=== PATIENT | male | born 1935 | race Caucasian/White ===

== ENCOUNTER → 2016-12-08 | Outpatient (CLI) | payer BC ==
[~2016-12-08] MED LIST: CHOL1TAB42 PO; EPIN1INJ33 IM; LOSA1TAB PO; METO50TA7 PO; MULT-506 PO; SIMV20TA2 PO
[2016-12-08 13:10] LABS: CHOLESTEROL/HDL RATIO 4.8; URIC ACID 7.7 mg/dl (2.6-7.2)
== END | disposition home or self-care (01) ==
LOC: C.LAB1850 10:27
PROVIDERS: ATTEND Internal Medicine Cardiovascular Disease
DX: E78.5 Hyperlipidemia, unspecified (principal); M10.9 Gout, unspecified

== ENCOUNTER → 2017-06-07 | Outpatient (CLI) | payer BC ==
[2017-06-07 10:33] LABS: ALT/SGPT 32 U/L (12-78); AST/SGOT 29 U/L (15-37); BLOOD UREA NITROGEN 24 mg/dl (7-18); BUN/CREATININE RATIO 17.9 (10-20); CALCIUM 9.4 mg/dl (8.5-10.1); CARBON DIOXIDE 27 mmol/L (21-32); CHLORIDE 105 mmol/L (98-107); CHOLESTEROL 153 mg/dl (0-200); CREATININE 1.34 mg/dl (0.60-1.40); GLUCOSE 100 mg/dl (70-99); POTASSIUM 4.4 mmol/L (3.5-5.1); SODIUM 139 mmol/L (136-145)
[2017-06-07 10:35] LABS: CHOLESTEROL/HDL RATIO 4.1; HDL CHOLESTEROL 37 mg/dl; LDL CHOLESTEROL CALCULATED 71 mg/dl; TRIGLYCERIDES 227 mg/dl (0-150); VERY LOW DENSITY LIPOPROT CALC 45 mg/dl
== END | disposition home or self-care (01) ==
LOC: C.LAB1850 09:31
PROVIDERS: ATTEND Internal Medicine Cardiovascular Disease
DX: I10 Essential (primary) hypertension (principal)

== ENCOUNTER 2017-11-22 13:16 | Emergency (ER) | payer BC ==
[~2017-11-22] VITALS: Ht 175.3 cm; Wt 93.9 kg
[~2017-11-22 13:16] MED LIST changes: -METO50TA7 PO; +METO50TA8 PO
[2017-11-22 13:35] VITALS: BP 206/108; PULSE 65; TEMP 36.5; O2SAT 98; Ht 175.3 cm; Wt 93.9 kg
== END 2017-11-22 16:27 | disposition left against medical advice (07) ==
LOC: C.EDB 13:19
DX: M25.512 Pain in left shoulder (principal); M79.602 Pain in left arm; Z53.21 Procedure and treatment not carried out due to patient leaving prior to being seen by health care provider

== ENCOUNTER → 2017-12-15 | Outpatient (CLI) | payer BC | END | disposition home or self-care (01) | LOC: C.LAB1850 09:26 | PROVIDERS: ATTEND Internal Medicine Cardiovascular Disease | DX: E78.5 Hyperlipidemia, unspecified (principal) ==

== ENCOUNTER 2020-04-16 22:34 | Inpatient (IN) ==
[2020-04-16] MEDS ORDERED: RAPID SEQUENCE INDUCTION BAG ONE (22:44)
[2020-04-16] MEDS ORDERED: fentaNYL citrate 100 MCG/2 ML VIAL IV STA (22:49)
--- NOTE | 2020-04-16 22:51 | Emergency Department Note ---
Impression & Plan Complete heart block, Acute respiratory failure ED Provider Note Name: JERI ANSARI Age: 85 Sex: M Arrives Via: Ambulance Informant: , EMS. Patient unresponsive ED Provider: Seamus Lazar MD Chief Complaint: Shortness of breath Impression: Complete Heart Block Acute Respiratory Failure Medical Decision Makin yr old male with PMH HTN, dyslipidemia and previous hyperglycemia arrives following 3 days generalized weakness and then this evening acute confusion and shortness of breath. Found to be complete heart block by EMS and en route r equired pacing and given IV versed. Patient unresponsive on arrival moving/moaning to painful stimuli. Complete heart block with poor pulse thus switched to pads here and paced at 70bpm with 120 amps and good capture. Intubated shortly after arrival as poor respiratory drive. While unable to get good BP while here, he does have strong pulses bilateral groin and wrists thus no EPI/pressor started. Afebrile and CXR with congestion though no overt infiltrate. No clear evidence of infection and denies anything other than he has been tired the last three days. I will note he is was hypoxic on arrival but after starting NRB then intubating patient without any hypoxia in ED, and despite inability to get actual BP he does have excellent pulses. EMS already tried several rounds Atropine thus no further cardiac meds given. I opted to give some fluids for support, and sedatives/RSI meds. He has initial istat with mild Hyperglycemia, mild renal insufficiency from baseline, and otherwise unremarkable. CXR with some developing congestive failure though tube is appropriate and no pneumo. I suspect respiratory failure on arrival combination obtundation and developing heart failure. Furthermore mental status issues likely secondary to Versed along with everything else going on. Initial EKG (this was EMS EKG at bedside on arrival) with no clear stemi morphology though is ventricular escape rhythm. Did not get EKG in ED as did not want to stop pacing patient. Prior Medical Record and Triage/Nursing Notes reviewed by Me Additional history obtained from Differentials:ACS, Arrhythmia, Pneumonia, COVID, CHF, pneumonia, pneumothorax, infections, pulmonary embolism, musculoskeletal, gastrointestinal, as well as other pathologies. Vital Signs: reviewed and remarkable for hypoxia, bradycardia Interventions: saline lock, intubation meds, versed iv, fentanyl iv, nss bolus Labs:Reviewed and remarkable for mild Cr elevation Imaging:X ray results are stated below per my interpretation: Chest: 1 view: ET Tube proper position, bilateral developing congestive failure EKG:Per My Interpretation: Indication bradycardia: Complete heart block 32 bpm. Ventricular escape without STEMI morphology. Compared to EKG 11/22/17 heart block is new. Cardiac/Tele Monitoring: Cardiac Monitoring: An Order was placed for continuous cardiac monitoring. The monitor shows a rate of 70 with a paced rhythm. Consults:Dr Villegas Cardiology who took patient to [employer] to place temporary pacer Plan: Disposition:Hospitalization. Condition: Critical Blood pressure:N/a Prescriptions:n/a PDMP: n/a History of Present Illness:85 male arrives for evaluation of respiratory difficulty. Patient with history dyslipidemia and HTN who arrives after feeling acutely short of breath at home. Not feeling well for the past 3 days with increased exhaustion and taking more naps. This evening while eating dinner became very tired, short of breath and feeling cold. He was unable to take a deep breath. Became confused and called 911. EMS arrived to find patient very tired but answering questions. Pt in complete heart block and given Atropine IV. En route increasing confusion and EMS reports having lost a pulse so patient was paced and given versed 5mg IV en route. Per no history of ACS, PE, dissection. No further information available. ROS: Unable to obtain secondary to ams Past Medical History:HTN, Dylipidemia, Elevated BSG Past Surgical History:Appendectomy, T&A removal, Hernia repair Family History:Father with CAD? Social History:Lives with , retired, previous smoker Home Medications:See Below Allergies:PNC, diltiazem, oxycodone Vitals:Blood Pressure: Palpable, Pulse 39, RR 18, T 36.9C, O2 85% on RA Physical Exam: GENERAL: Patient is unwell appearing and in obtunded EYES: No scleral icterus, unremarkable pupils. ENT: Mucous membranes moist, no nasal congestion. NECK: No masses appreciated, nomeningismus, trachea is midline. RESPIRATORY: Shallow breaths with poor respiratory drive and diffuse crackles CARDIOVASCULAR: Bradycardic.No murmurs, rubs, gallops appreciated. GASTROINTESTINAL: Abdomen soft, non-tender, no peritonitis.Bowel sounds positive.No masses appreciated. BACK: No step offs nor midline TTP, no apparent CVA TTP EXTREMITIES: Weakly moves extremities to painful stimuli NEUROLOGIC: Obtunded, unresponsive except weakly moves to painful stimuli, unable to eval CN and neuro exam SKIN: No rash, no jaundice, no diaphoresis. GCS: 6 ED Course: Times/Reassessments: Extensive bedside management until patient went to [employer] Procedures: Endotracheal Intubation Indication: Respiratory failure, obtunded The patient was being bagged by respiratory with BVM. Suction, airway equipment, RSI drugs, respiratory equipment, and appropriate personnel were prepared prior to the initiation of the procedure. A time out was taken. Induction was performed with Etomidate 20mg IV and Succynicholine 150mg IV. After observing the clinical benefit of the medications, the airway was easily visualized utilizing a #4 Glidescope. A 7.5 size ETT tube was placed atraumatically to 23 cm using standard technique. The cuff inflated without signs of malfunction. There were bilateral breath sounds, positive colormetric change, no gastric sounds, a good capnography waveform, and post procedure pulse oximetry was 98%. Post intubation sedation and paralysis was administered using Versed and Fentanyl IV. There were no complications. Cardiac Pacing: Indication: Complete Heart Block Patient with pads placed right anterior chest and left mid axillary line. Patient paced at 70 bpm with capture of rhythm at 120 amps current. Patient with good pulses after this and was sedated/intubated for management throughout. This was done by me. Critical Care: I have personally spent 60 minutes of critical care time in the direct management of this patient. Acute heart block with respiratory failure requiring bedside external pacing, intubation and transfer to [employer] for temporary pa cer. This was a life/limb threatening event. This 60 minutes is in excess of all separately billable procedures. Seamus Lazar MD Past Med/Surg History Medical History (Updated 04/17/20 @ 01:46 by RADHA Quintanilla) Dyslipidemia Gout Helicobacter positive gastritis Herpes zoster Peptic ulcer Surgical History H/O hernia repair S/P appendectomy S/P T&A (status post tonsillectomy and adenoidectomy) Total knee replacement status Family History Other Coronary heart disease Social History Smoking Status: Former smoker Hx Alcohol Use: No Hx Substance Use: No Communication Ability: Impaired marital status: Current Living Situation: Spouse current occupational status: retired Feels Safe at Home: Yes Allergies Allergies Allergy/AdvReac Type Severity Reaction Status Date / Time Penicillins Allergy Unknown HIVES Verified 04/16/20 23:06 bee pollen Allergy Unknown Verified 04/16/20 23:06 codeine Allergy Unknown Verified 04/16/20 23:06 oxycodone AdvReac Unknown N&V Verified 04/16/20 23:06 diltiazem AdvReac edema Verified 04/16/20 23:06 OPIATEAGONISTS AdvReac Unknown N&V Uncoded 04/16/20 23:06 Home Meds Home Medications Medication Instructions Recorded Confirmed aspirin 325 mg PO DAILY PRN 02/03/20 04/16/20 fluocinonide 1 applic TOPICAL BID PRN 02/03/20 04/16/20 multivitamin with iron-mineral 1 tab PO QAM 02/03/20 04/16/20 vitamin E 400 unit PO QAM 02/03/20 04/16/20 Previous Rx's Medication Instructions Recorded carisoprodol 350 mg tablet 350 mg PO DAILY PRN #30 tab 07/07/19 simvastatin 40 mg tablet 40 mg PO HS #90 tab 02/15/20 metoprolol tartrate 50 mg tablet 50 mg PO BID #7 tab 02/16/20 hydrochlorothiazide 12.5 mg tablet 12.5 mg PO QAM #90 tab 02/19/20 losartan 50 mg tablet 50 mg PO QAM #90 tab 03/01/20 Results & Data (ED) Vital Signs Vital Signs - 24 hr 04/16/20 22:34 04/16/20 22:40 04/16/20 22:49 Temperature Temperature Source Pulse Rate 39 L 32 L Pulse Rate [Right Finger] 70 Pulse Rate from SpO2 Sensor 28 L Pulse Rhythm Irregular Pulse Strength Weak Pulse Strength [Right Finger] Weak Respiratory Rate 28 H 26 H Respiratory Effort / Characteristics Labored Respiratory Depth Normal Respiratory Pattern Tachypnea Blood Pressure Position Lying Pulse Oximetry 85 L 91 96 Oxygen Delivery Method Room Air Ambu-Bag Fraction of Inspired Oxygen Sepsis Recent Fever Within 48 Hours No Sepsis New/Unexplained Change in Mental Status Yes Sepsis Action Taken by Nursing Physician Notified End-Tidal CO2 Pulse Oximetry Post Tiitration 04/16/20 22:50 04/16/20 23:00 04/16/20 23:01 Temperature Temperature Source Pulse Rate 70 69 70 Pulse Rate [Right Finger] Pulse Rate from SpO2 Sensor 29 L Pulse Rhythm Pulse Strength Pulse Strength [Right Finger] Respiratory Rate 26 H Respiratory Effort / Characteristics Respiratory Depth Respiratory Pattern Blood Pressure Position Pulse Oximetry 98 100 Oxygen Delivery Method Fraction of Inspired Oxygen 100 Sepsis Recent Fever Within 48 Hours Sepsis New/Unexplained Change in Mental Status Sepsis Action Taken by Nursing End-Tidal CO2 35 Pulse Oximetry Post Tiitration 04/16/20 23:05 04/16/20 23:10 04/16/20 23:12 Temperature 36.9 C Temperature Source Oral Pulse Rate 70 Pulse Rate [Right Finger] Pulse Rate from SpO2 Sensor Pulse Rhythm Pulse Strength Pulse Strength [Right Finger] Respiratory Rate Respiratory Effort / Characteristics Respiratory Depth Respiratory Pattern Blood Pressure Position Pulse Oximetry 96 Oxygen Delivery Method Mechanical Vent Fraction of Inspired Oxygen Sepsis Recent Fever Within 48 Hours Sepsis New/Unexplained Change in Mental Status Sepsis Action Taken by Nursing End-Tidal CO2 33 Pulse Oximetry Post Tiitration 100 04/17/20 00:12 Temperature Temperature Source Pulse Rate 80 Pulse Rate [Right Finger] Pulse Rate from SpO2 Sensor Pulse Rhythm Pulse Strength Pulse Strength [Right Finger] Respiratory Rate 26 H Respiratory Effort / Characteristics Respiratory Depth Respiratory Pattern Blood Pressure Position Pulse Oximetry 100 Oxygen Delivery Method Fraction of Inspired Oxygen 70 Sepsis Recent Fever Within 48 Hours Sepsis New/Unexplained Change in Mental Status Sepsis Action Taken by Nursing End-Tidal CO2 19 Pulse Oximetry Post Tiitration Laboratory Data Result diagrams: 04/17/20 03:00 04/17/20 03:00 Lab Results 04/16/20 04/16/20 04/16/20 Range/Units 22:42 22:50 22:50 WBC 9.96 (4.8-10.8) K/uL RBC 4.27 L (4.7-6.1) M/uL Hgb 13.8 L (14.0-18.0) g/dL POC Hgb 13.6 L (14.0-18.0) g/dl Hct 39.8 L (42-52) % POC Hct 40 L (42-52) % MCV 93.2 (80-100) fL MCH 32.3 (25-34) pg MCHC 34.7 (32-36) g/dL RDW Std Deviation 45.4 (36.4-46.3) fL RDW Coeff of Mame 13.3 (11.5-14.5) % Plt Count 208 (130-400) K/uL MPV 9.7 (7.4-10.4) fL Immature Gran % (Auto) 0.2 % Neut % (Auto) 82.6 % Lymph % (Auto) 11.6 % [place] % (Auto) 4.7 % Eos % (Auto) 0.7 % Baso % (Auto) 0.2 % Neut # (Auto) 8.22 H (1.4-6.5) K/uL Lymph # (Auto) 1.16 L (1.2-3.4) K/uL [place] # (Auto) 0.47 (0.11-0.59) K/uL Eos # (Auto) 0.07 (0-0.5) K/uL Baso # (Auto) 0.02 (0-0.2) K/uL Immature Gran # (Auto) 0.02 (0.00-0.02) K/uL PT 11.9 (9.0-12.0) Seconds INR 1.1 (0.9-1.1) APTT 27.3 (21.0-31.0) Seconds PTT Ratio 1.0 POC Sodium 139 (135-144) mmol/L Sodium (136-145) mmol/L POC Potassium 4.8 (3.3-5.0) mmol/L Potassium (3.5-5.1) mmol/L POC Chloride 102 (101-112) mmol/L Chloride (98-107) mmol/L Carbon Dioxide (21-32) mmol/L POC Total CO2 23 L (24-31) mmol/L Anion Gap (3-11) POC Anion Gap 19.0 (16-25) mmol/L POC BUN 37 H (7-18) mg/dl BUN (7-18) mg/dl Creatinine (0.6-1.4) mg/dl POC Creatinine 1.9 H (0.6-1.3) mg/dl Est Cr Clr Drug Dosing ml/min Est GFR ( Amer) Est GFR (Non-Af Amer) BUN/Creatinine Ratio (10-20) Glucose (70-99) mg/dl POC Glucose (other) 156 H (70-99) mg/dl Calcium (8.5-10.1) mg/dl POC Ioniz Calcium Chanel 1.17 (1.12-1.32) mmol/l Magnesium (1.8-2.4) mg/dl Total Bilirubin (0.2-1) mg/dl Direct Bilirubin (0-0.2) mg/dl AST (15-37) U/L ALT (12-78) U/L Alkaline Phosphatase (45-117) U/L Troponin I (0-0.045) ng/ml Total Protein (6.4-8.2) gm/dl Albumin (3.4-5.0) gm/dl Urine Color Urine Appearance (Clear) Urine pH (4.5-7.5) Ur Specific [place] (1.000-1.030) Urine Protein (Negative) Urine Glucose (UA) (Negative) Urine Ketones (Negative) Urine Blood (Negative) Urine Nitrite (Negative) Urine Bilirubin (Negative) Urine Urobilinogen (Negative) Ur Leukocyte Esterase (Negative) Urine WBC (Auto) (0-5) /hpf Urine RBC (Auto) (0-4) /hpf U Hyaline Cast (Auto) (0-5) /lpf U Epithel Cells (Auto) (0-5) /lpf Urine Bacteria (Auto) (Negative) 04/16/20 04/16/20 Range/Units 22:50 22:51 WBC (4.8-10.8) K/uL RBC (4.7-6.1) M/uL Hgb (14.0-18.0) g/dL POC Hgb (14.0-18.0) g/dl Hct (42-52) % POC Hct (42-52) % MCV (80-100) fL MCH (25-34) pg MCHC (32-36) g/dL RDW Std Deviation (36.4-46.3) fL RDW Coeff of Mame (11.5-14.5) % Plt Count (130-400) K/uL MPV (7.4-10.4) fL Immature Gran % (Auto) % Neut % (Auto) % Lymph % (Auto) % [place] % (Auto) % Eos % (Auto) % Baso % (Auto) % Neut # (Auto) (1.4-6.5) K/uL Lymph # (Auto) (1.2-3.4) K/uL [place] # (Auto) (0.11-0.59) K/uL Eos # (Auto) (0-0.5) K/uL Baso # (Auto) (0-0.2) K/uL Immature Gran # (Auto) (0.00-0.02) K/uL PT (9.0-12.0) Seconds INR (0.9-1.1) APTT (21.0-31.0) Seconds PTT Ratio POC Sodium (135-144) mmol/L Sodium 138 (136-145) mmol/L POC Potassium (3.3-5.0) mmol/L Potassium 4.6 (3.5-5.1) mmol/L POC Chloride (101-112) mmol/L Chloride 106 (98-107) mmol/L Carbon Dioxide 23 (21-32) mmol/L POC Total CO2 (24-31) mmol/L Anion Gap 9.0 (3-11) POC Anion Gap (16-25) mmol/L POC BUN (7-18) mg/dl BUN 37 H (7-18) mg/dl Creatinine 1.99 H (0.6-1.4) mg/dl POC Creatinine (0.6-1.3) mg/dl Est Cr Clr Drug Dosing 29.6 ml/min Est GFR ( Amer) 34.0 Est GFR (Non-Af Amer) 29.3 BUN/Creatinine Ratio 18.6 (10-20) Glucose 163 H (70-99) mg/dl POC Glucose (other) (70-99) mg/dl Calcium 8.7 (8.5-10.1) mg/dl POC Ioniz Calcium Chanel (1.12-1.32) mmol/l Magnesium 2.0 (1.8-2.4) mg/dl Total Bilirubin 0.4 (0.2-1) mg/dl Direct Bilirubin 0.1 (0-0.2) mg/dl AST 29 (15-37) U/L ALT 32 (12-78) U/L Alkaline Phosphatase 61 (45-117) U/L Troponin I < 0.015 (0-0.045) ng/ml Total Protein 7.1 (6.4-8.2) gm/dl Albumin 3.6 (3.4-5.0) gm/dl Urine Color Yellow Urine Appearance Clear (Clear) Urine pH 6.0 (4.5-7.5) Ur Specific [place] 1.014 (1.000-1.030) Urine Protein Negative (Negative) Urine Glucose (UA) Negative (Negative) Urine Ketones Negative (Negative) Urine Blood Trace H (Negative) Urine Nitrite Negative (Negative) Urine Bilirubin Negative (Negative) Urine Urobilinogen Negative (Negative) Ur Leukocyte Esterase Negative (Negative) Urine WBC (Auto) 0 (0-5) /hpf Urine RBC (Auto) 0-4 (0-4) /hpf U Hyaline Cast (Auto) 0 (0-5) /lpf U Epithel Cells (Auto) 10-20 H (0-5) /lpf Urine Bacteria (Auto) Negative (Negative) Administered Medications Propofol (Diprivan) 1,000 mg in 100 mls @ 11.04 mls/hr IV .[id number] [facility]; Protocol Stop: 04/20/20 00:44 Last Titration: 04/17/20 02:15 Dose: 5 mcg/kg/min, 2.8 mls/hr Documented by: [id number] Titration: 04/17/20 01:45 Dose: 10 mcg/kg/min, 5.5 mls/hr Documented by: [id number] Admin: 04/17/20 01:15 Dose: 5 mcg/kg/min, 2.8 mls/hr Documented by: [id number] Cosigned by: [id number] Acetaminophen ([facility]) 1,000 mg in 100 mls @ 400 mls/hr IV Q8H PRN PRN Reason: Fever Stop: 04/20/20 01:24 Last Infusion: 04/17/20 02:23 Dose: 0 mls/hr Documented by: [id number] Admin: 04/17/20 02:08 Dose: 400 mls/hr Documented by: [id number] Discontinued Medications Dopamine HCl/Dextrose (Dopamine 400mg / 250ml D5w ([employer] Use Only)) Confirm Administered Dose 400 mg .ROUTE .STK-MED ONE Stop: 04/16/20 23:38 Last Admin: 04/17/20 02:33 Dose: Not Given Documented by: [id number] Fentanyl Citrate (Fentanyl Citrate 100 Mcg/2 Ml Vial) 50 mcg IV NOW STA Stop: 04/16/20 22:50 Last Admin: 04/16/20 22:55 Dose: 50 mcg Documented by: [id number] Heparin Sodium (Porcine) (Heparin (Porcine) 1000 Unit/Ml 10 Ml ([employer] Use Only)) Confirm Administered Dose 10,000 units .ROUTE .STK-MED ONE Stop: 04/16/20 23:06 Last Admin: 04/17/20 02:32 Dose: Not Given Documented by: [id number] Heparin Sodium/Sodium Chloride (Heparin In Nss Infusion 1000 Unit/500 Ml (2 U/Ml) Bag) Confirm Administered Dose 3,000 units IV .STK-MED ONE Stop: 04/16/20 23:08 Last Admin: 04/17/20 02:33 Dose: Not Given Documented by: [id number] Midazolam HCl (Midazolam Hcl 1 Mg/Ml 2ml Vial) Confirm Administered Dose 2 mg .ROUTE .STK-MED ONE Stop: 04/16/20 23:08 Last Admin: 04/16/20 23:21 Dose: 5 mg Documented by: [id number] Miscellaneous (Rapid Sequence Induction Bag) Confirm Administered Dose 1 ea .ROUTE .STK-MED ONE Stop: 04/16/20 22:45 Last Admin: 04/17/20 02:32 Dose: Not Given Documented by: [id number] Nicardipine HCl (Nicardipine Hcl Inj 2.5 Mg/Ml 10 Ml Amp) Confirm Administered Dose 25 mg .ROUTE .STK-MED ONE Stop: 04/16/20 23:07 Last Admin: 04/17/20 02:32 Dose: Not Given Documented by: [id number] Nitroglycerin/Dextrose (Nitroglycerin/D5w 100mcg/Ml 20ml Syr) Confirm Administered Dose 2,000 mcg .ROUTE .STK-MED ONE Stop: 04/16/20 23:08 Last Admin: 04/17/20 02:33 Dose: Not Given Documented by: [id number] Propofol (Propofol Iv Emulsion 10 Mg/Ml 100 Ml Vial) Confirm Administered Dose 1,000 mg IV .STK-MED ONE Stop: 04/17/20 00:16 Last Admin: 04/17/20 02:33 Dose: Not Given Documented by: [id number] Discharge Plan Visit Data Chief Complaint: Bradycardia Stated Complaint: BRADYCARDIA, SOB ED Provider: Seamus Lazar Discharge Problem: Complete heart block, Acute respiratory failure Patient Disposition: Still a Patient Discharge Instructions Interventions: ED Discharge Assessment Last Done: 04/16/20 23:22 Discharge Problem: Acute respiratory failure Qualifiers: Respiratory failure complication: unspecified whether with hypoxia or hypercapnia Qualified Code(s): J96.00 - Acute respiratory failure, unspecified whether with hypoxia or hypercapnia
[2020-04-16 22:55] LABS: iSTAT Creatinine 1.9 mg/dl (0.6-1.3); iSTAT Hemoglobin 13.6 g/dl (14.0-18.0); iSTAT Ionized Calcium 1.17 mmol/l (1.12-1.32); iSTAT Potassium 4.8 mmol/L (3.3-5.0)
[2020-04-16 22:59] LABS: Basophils # (auto) 0.02 K/uL (0-0.2); Basophils % (auto) 0.2 %; Eosinophils # (auto) 0.07 K/uL (0-0.5); Eosinophils % (auto) 0.7 %; Hematocrit (blood only) 39.8 % (42-52); Hemoglobin 13.8 g/dL (14.0-18.0); Immature Granulocytes # (auto) 0.02 K/uL (0.00-0.02); Immature Granulocytes % (auto) 0.2 %; Lymphocytes # (auto) 1.16 K/uL (1.2-3.4); Lymphocytes % (auto) 11.6 %; Mean Corpuscular Hemoglobin 32.3 pg (25-34); Mean Corpuscular Hgb Conc 34.7 g/dL (32-36); Mean Corpuscular Volume 93.2 fL (80-100); Mean Platelet Volume 9.7 fL (7.4-10.4); Monocytes # (auto) 0.47 K/uL (0.11-0.59); Monocytes % (auto) 4.7 %; Neutrophils # (auto) 8.22 K/uL (1.4-6.5); Neutrophils % (auto) 82.6 %; Platelet Count 208 K/uL (130-400); RDW Coefficient of Variation 13.3 % (11.5-14.5); RDW Standard Deviation 45.4 fL (36.4-46.3); Red Blood Count 4.27 M/uL (4.7-6.1); White Blood Count 9.96 K/uL (4.8-10.8)
[2020-04-16] MEDS ORDERED: HEPARIN (PORCINE) 1000 UNIT/ML 10 ML (CATH LAB USE ONLY) ONE (23:05)
[2020-04-16] MEDS ORDERED: NiCARDipine HCL INJ 2.5 MG/ML 10 ML AMP ONE (23:06)
[2020-04-16] MEDS ORDERED: MIDAZOLAM HCL 1 MG/ML 2ML VIAL ONE (23:07)
[2020-04-16] MEDS ORDERED: NITROGLYCERIN/D5W 100MCG/ML 20ML SYR ONE (23:07)
[2020-04-16 23:09] LABS: Appearance Urine Clear (Clear); Bacteria Urine Automated Negative (Negative); Bilirubin Urine Negative (Negative); Blood Urine Trace (Negative); Cast Urine Automated 0 /lpf (0-5); Color Urine Yellow; Glucose Urine UA Negative (Negative); Ketones Urine Negative (Negative); Leukocyte Esterase Urine Negative (Negative); Nitrite Urine Negative (Negative); Protein Urine Negative (Negative); RBC Urine Automated 0-4 /hpf (0-4); Specific Gravity Urine 1.014 (1.000-1.030); Urobilinogen Urine Negative (Negative); WBC Urine Automated 0 /hpf (0-5)
[2020-04-16 23:13] LABS: INR 1.1 (0.9-1.1); Partial Thromboplastin Time 27.3 Seconds (21.0-31.0); Prothrombin Time 11.9 Seconds (9.0-12.0)
[2020-04-16 23:22] LABS: Alanine Aminotransferase 32 U/L (12-78); Albumin Level 3.6 gm/dl (3.4-5.0); Aspartate Aminotransferase 29 U/L (15-37); BUN Creatinine Ratio 18.6 (10-20); Bilirubin Direct 0.1 mg/dl (0-0.2); Blood Urea Nitrogen 37 mg/dl (7-18); Calcium 8.7 mg/dl (8.5-10.1); Carbon Dioxide 23 mmol/L (21-32); Chloride 106 mmol/L (98-107); Creatinine Clr Calc Pharmacy 29.6 ml/min; Est GFR (Non-African American) 29.3; Glucose 163 mg/dl (70-99); Potassium 4.6 mmol/L (3.5-5.1); Sodium 138 mmol/L (136-145)
[2020-04-16 23:27] LABS: Alkaline Phosphatase 61 U/L (45-117); Bilirubin,Total 0.4 mg/dl (0.2-1); Total Protein 7.1 gm/dl (6.4-8.2); Troponin I < 0.015 ng/ml (0-0.045)
--- NOTE | 2020-04-16 23:33 | Cardiology Consultation ---
Date of Consultation April 16, 2020 Assessment & Plan (1) Complete heart block: Will proceed with placement of transvenous pacemaker via right IJ. Evaluation for permanent pacemaker tomorrow with EP. History of Present Illness Attending Physician: Miguel Angel Villegas MD History of Present Illness Mr. Luna is a 85 year old man with a history of hypertension, dyslipidemia seen emergently in the ED in the setting of symptomatic complete heart block to lower 30s. Patient is followed by Dr. Barajas as an outpatient. Patient intubated in ED emergently after presented confused, hypotensive with HR to 30s. At my arrival being transcutaneously paced. Per he was feeling well earlier in day. This evening after dinner complained of feeling cold and then became increasingly confused before EMS called. No complaints of chest pain, shortness of breath. No recent change to exercise capacity. No recent fevers, rashes or change to medications. Allergies Allergy/AdvReac Type Severity Reaction Status Date / Time Penicillins Allergy Unknown HIVES Verified 04/16/20 23:06 bee pollen Allergy Unknown Verified 04/16/20 23:06 codeine Allergy Unknown Verified 04/16/20 23:06 oxycodone AdvReac Unknown N&V Verified 04/16/20 23:06 diltiazem AdvReac edema Verified 04/16/20 23:06 OPIATEAGONISTS AdvReac Unknown N&V Uncoded 04/16/20 23:06 Home Medications Home Medications Medication Instructions Recorded Confirmed Type carisoprodol 350 mg tablet 350 mg PO DAILY PRN #30 tab 07/07/19 04/16/20 Rx aspirin 325 mg PO DAILY PRN 02/03/20 04/16/20 History fluocinonide 1 applic TOPICAL BID PRN 02/03/20 04/16/20 History multivitamin with iron-mineral 1 tab PO QAM 02/03/20 04/16/20 History vitamin E 400 unit PO QAM 02/03/20 04/16/20 History simvastatin 40 mg tablet 40 mg PO HS #90 tab 02/15/20 04/16/20 Rx metoprolol tartrate 50 mg tablet 50 mg PO BID #7 tab 02/16/20 04/16/20 Rx hydrochlorothiazide 12.5 mg tablet 12.5 mg PO QAM #90 tab 02/19/20 04/16/20 Rx losartan 50 mg tablet 50 mg PO QAM #90 tab 03/01/20 04/16/20 Rx Patient History Medical History (Updated 04/16/20 @ 23:35 by Seamus Lazar MD) Dyslipidemia Gout Helicobacter positive gastritis Herpes zoster Peptic ulcer Surgical History H/O hernia repair S/P appendectomy S/P T&A (status post tonsillectomy and adenoidectomy) Total knee replacement status Family History Other Coronary heart disease Social History Smoking Status: Never smoker Hx Alcohol Use: Yes marital status: Current Living Situation: Spouse current occupational status: retired Feels Safe at Home: Yes Review of Systems Review of Systems: All systems reviewed & are unremarkable except as noted in HPI & below Physical Exam Physical Exam: General: intubated, sedated HENT: ETT in place Neck: Normal carotid upstrokes, no bruits. No JVD. Lungs: Clear to auscultation bilaterally, no rhonchi or wheezes Cardiac: pacing pads in placed, regular Abdomen: Soft Extremities/Vascular: -- 2+ radial bilaterally -- No edema Results & Data ([facility]) Vital Signs (Past 12 Hours) Vital Signs Temp Pulse Pulse Resp Pulse Ox 04/16/20 23:12 98.4 F 04/16/20 23:10 70 04/16/20 23:05 96 04/16/20 23:01 70 04/16/20 22:50 70 98 04/16/20 22:49 70 26 H 96 04/16/20 22:40 32 L 91 04/16/20 22:34 39 L 28 H 85 L PG Care Time/CCT Total # of Minutes Spent Total Time Spent with Patient: Total time spent is greater than 50% in coordination of care (as documented) at patient's floor/unit and/or counseling patient: Coding Level of Care Code 07903 Initial Inpt Care Lvl 3 Diagnoses Complete heart block I44.2
[2020-04-16] MEDS ORDERED: DOPamine 400MG / 250ML D5W (CATH LAB USE ONLY) ONE (23:37)
[2020-04-17] MEDS ORDERED: PROPOFOL IV EMULSION 10 MG/ML 100 ML VIAL IV ONE (00:15)
[2020-04-17] MEDS ORDERED: PROPOFOL BOLUS FROM BAG IV PRN (00:36)
[2020-04-17] MEDS ORDERED: STAT IV Infusion **Titration per Protocol STA ×3 (00:36→04:20)
[2020-04-17] MEDS ORDERED: propofoL 1,000 MG/100 ML VIAL IV SCH (00:45)
[2020-04-17] MEDS ORDERED: ICU PROTOCOL FOR HYPERGLYCEMIA PRN (01:04)
[2020-04-17 01:28] LABS: iSTAT Art Bld Gas pCO2 Correct 37 mmHg (35-46); iSTAT Art Bld Gas pH Corrected 7.346 (7.35-7.45); iSTAT Arterial Blood Gas HCO3 20 meg/L (19-24); iSTAT Arterial Blood Gas pCO2 33 mmHg (35-46); iSTAT Arterial Blood Gas pH 7.38 (7.35-7.45); iSTAT Arterial Blood Gas pO2 130 mmHg (80-95); iSTAT Arterial Blood Gas pO2 C 147; iSTAT Carbon Dioxide 21 mmol/L (24-31); iSTAT FiO2 70 %; iSTAT Hematocrit 35 % (42-52); iSTAT Hemoglobin 11.9 g/dl (14.0-18.0); iSTAT Potassium 4.4 mmol/L (3.3-5.0); iSTAT Site Art Line; iSTAT Sodium 141 mmol/L (135-144)
--- NOTE | 2020-04-17 01:47 | Critical Care Consultation ---
Date of Consultation April 17, 2020 Assessment & Plan (1) Complete heart block: Reason Critically Ill: 85-year-old male presents with complete heart block, s/p Neuro - Sedation: Propofol Cardiac - Complete heart block-status post transvenous pacer, current settings: Rate 80, 0.5 mA -A-line for continuous blood pressure monitoring -Currently hemodynamically stable, not requiring vasopressors -Troponin negative, will continue to trend -Cardiology consulted, will follow up recs -Follow-up echo in a.m. -Continuous monitor on telemetry Respiratory - Acute respiratory failure with hypoxiapatient in the ED intubated as he was obtunded -Patient does show hypoxia on PO2, weaning vent as tolerated, will trend ABGs -Chest x-ray with pulmonary congestion -Questionable aspiration pneumonitis as patient did lose consciousness with agonal breathing in route to the emergency department without protected airway per report, and now presents with fever -No history of pulmonary disease -will hold on diuresis for now -Continuous monitoring on pulse ox GI - N.p.o. RENAL/LYTES - FELIPA on CKDlikely prerenal/ATN injury following symptomatic bradycardia/hypotension -Creatinine 1.99 with 1.34 baseline -Careful with IV fluid resuscitation as patient is hypoxic with pulmonary congestion, suspicious heart failure -We will trend with routine BMPs -Monitor urine output - Foleystrict I's and O's ENDO - No history diabetes thyroid disease HEME - H&H stable, monitor ID - Cannot rule out infectious process as patient presents with a mixed picture at this time -Patient febrile and hypoxic, concern for possible aspiration from earlier event -No leukocytosis, UA negative, lactate negative -Blood cultures pending, pro Steven pending, Lyme pending -MRSA negative -We will continue with cefepime for empiric pulmonary coverage at this time LINES/IV ACCESS - PIV's, A-line, ETT, Steel, OGT DVT PROPHYLAXIS - SCDs, subcu heparin I have personally spent 60 minutes of critical care time in the direct management of this patient. This is a life/limb threatening event. This includes time spent evaluating patient, direct bedside care, chart review, placing orders, interpretation of diagnostic studies, discussion with consultants, patient, and family members, as well as other required patient management activities. This time is exclusive of all separately billable procedures, and teaching time and separate from and in addition to any other critical care service time. Thank you for allowing us to participate in the care of this patient. Please refer to my attending physician's documentation for any further recommendations. (2) Respiratory failure with hypoxia: (3) Hypertension: (4) Hypercholesterolemia with endogenous hyperglyceridemia: (5) On mechanically assisted ventilation: (6) Admitted to intensive care unit: History of Present Illness Attending Physician: Miguel Angel Villegas MD History of Present Illness Patient is a 85-year-old male with PMH of HTN, HLD who presented to the emergency department via EMS in complete heart block requiring external pacing. and told EMS the patient had generalized weakness for 3 days and started having acute confusion and shortness of breath. Patient apparently lost consciousness and route to the hospital, and EMS began externally pacing. He had been giving Versed and fentanyl in the emergency department and with reduced consciousness and hypoxia and was intubated. Heart alert was called however patient did not undergo a cardiac catheterization but was taken to the [facility] for insertion of transvenous temporary pacemaker. Patient arrives to the ICU intubated and sedated and paced at a rate of 80 on 0.5 mA. He is normotensive and not requiring vasopressors. He was temporarily on dopamine drip in the [facility]. He was notably hyperthermic on arrival and was also noted to be hypoxic. Currently patient remains critically ill and will remain in ICU for further management at this time. Allergies Allergy/AdvReac Type Severity Reaction Status Date / Time Penicillins Allergy Unknown HIVES Verified 04/16/20 23:06 bee pollen Allergy Unknown Verified 04/16/20 23:06 codeine Allergy Unknown Verified 04/16/20 23:06 oxycodone AdvReac Unknown N&V Verified 04/16/20 23:06 diltiazem AdvReac edema Verified 04/16/20 23:06 OPIATEAGONISTS AdvReac Unknown N&V Uncoded 04/16/20 23:06 Home Medications Home Medications Medication Instructions Recorded Confirmed Type carisoprodol 350 mg tablet 350 mg PO DAILY PRN #30 tab 07/07/19 04/16/20 Rx aspirin 325 mg PO DAILY PRN 02/03/20 04/16/20 History fluocinonide 1 applic TOPICAL BID PRN 02/03/20 04/16/20 History multivitamin with iron-mineral 1 tab PO QAM 02/03/20 04/16/20 History vitamin E 400 unit PO QAM 02/03/20 04/16/20 History simvastatin 40 mg tablet 40 mg PO HS #90 tab 02/15/20 04/16/20 Rx metoprolol tartrate 50 mg tablet 50 mg PO BID #7 tab 02/16/20 04/16/20 Rx hydrochlorothiazide 12.5 mg tablet 12.5 mg PO QAM #90 tab 02/19/20 04/16/20 Rx losartan 50 mg tablet 50 mg PO QAM #90 tab 03/01/20 04/16/20 Rx Patient History Medical History (Updated 04/17/20 @ 10:52 by Riki Barajas MD) Dyslipidemia Gout Helicobacter positive gastritis Herpes zoster Peptic ulcer Surgical History H/O hernia repair S/P appendectomy S/P T&A (status post tonsillectomy and adenoidectomy) Total knee replacement status Family History Other Coronary heart disease Social History Smoking Status: Former smoker Hx Alcohol Use: No Hx Substance Use: No Communication Ability: Effective marital status: Current Living Situation: Spouse current occupational status: retired Feels Safe at Home: Yes Review of Systems Review of Systems: Unobtainable due to endotracheal tube and Unobtainable due to reduced consciousness Physical Exam Constitutional: comfortable and + mechanically ventilated Eyes: PERRL, conjunctivae normal, anicteric sclerae ENMT: external ear and nose normal, oropharynx normal Neck: trachea midline, no thyromegaly Respiratory: Mechanically ventilated and resting comfortably on ventilator. Symmetrical chest wall movement. Lungs clear to auscultation bilaterally. No wheezes or crackles. Cardiovascular: Paced rhythm at 80 on monitor. S1-S2. No murmur. No JVD. No edema. Gastrointestinal (Abdomen): Abdomen obese, soft. Hypo-active bowel sounds Musculoskeletal: Unable to assess due to sedation Skin: no rashes, warm and dry Neurologic: PERRLA, cough gag corneal intact. Was able to follow commands bilaterally with sedation pause. Psychiatric: Unable to assess due to sedation Genitourinary: Indwelling Steel catheter present Results & Data Results & Data ([facility]) Vital Signs (Past 12 Hours) Vital Signs Temp Pulse Pulse Resp Pulse Ox 04/17/20 00:12 80 26 H 100 04/16/20 23:12 36.9 C 04/16/20 23:10 70 04/16/20 23:05 96 04/16/20 23:01 70 04/16/20 23:00 69 26 H 100 04/16/20 22:50 70 98 04/16/20 22:49 70 26 H 96 04/16/20 22:40 32 L 91 04/16/20 22:34 39 L 28 H 85 L Coding Level of Care Code Critical Care 1st 30-74 mins Diagnoses Complete heart block I44.2 Respiratory failure with hypoxia J96.91 Hypertension I10 Hypercholesterolemia with endogenous hyperglyceridemia E78.2 On mechanically assisted ventilation Z99.11 Admitted to intensive care unit Z78.9
--- NOTE | 2020-04-17 01:53 | Cardiac Catheterization ---
[facility] Data: Counseling Program Leader Cardiac Status Clinical evaluation leading to the procedure CAD Presenation: Sx unlikely to be ischemic Anginal Classification: No Symptoms Heart Failure: No Cardiogenic Shock within 24 Hours: No Cardiac Arrest within 24 Hours: No Imaging Studies Past 6 Months: No Stress Studies Past 6 Months: No Diagnostic Physicians Name: Miguel Angel Villegas MD Status: Emergency Closure Device Percutaneous Entry Location: RT internal jugular Recommendations: Management Recommendatons (Evaluation for permanent pacemaker) Intraprocedure Events Significant Disection: No Perforation: No Cardiac Cath Procedure Full Procedure Date April 17, 2020 Pre-Procedure Diagnosis Pre-Procedure Diagnosis: Cardiothoracic Symptom (Complete heart block) AUC Score AUC Score: 7 Post-Procedure Diagnosis Post-Procedure Diagnosis: Cardiothoracic Finding (Complete heart block) Procedure(s) Performed Procedure(s) Performed: Temporary Pacemaker, Ultrasound Guided Vascular Access and Procedure (Radial artery line placement) Interpreter Miguel Angel Villegas MD Stock Preparer(s) Arellano Estimated Blood Loss Estimated Blood Loss: 5 Medication(s) Medication(s): Dopamine and Lidocaine 1% Summary of Findings Transvenous pacemaker placement Indication: Complete heart block Procedure: - RT IJ accessed under ultrasound guidance with placement of 6Fr sheath - 6Fr temporary pacing wire navigated to RV under fluorscopic guidance - Appropriate pacing confirmed at <1 mA - Sheath sutured place. -4Fr radial artery line catheter placed to right radial artery and sutured into place. - Final pacing settings: VVI 80 bpm, Output 5 mA Summary: 1. Successful transvenous temporary pacemaker placement 2. Successful right radial artery catheter placement Hemodynamics Rest Ao:: -- Final Ao: -- LV: -- Recommendations Recommendations: Management Recommendatons (Evaluation for permanent pacemaker) Specimens Specimens: None Radiation Exposure (mGy) 99 Contrast (mls) -- Fluids (cc crystalloids) Fluids (cc crystalloids): 60 Drains Drains: none Anesthesia intubated, sedated Procedural Complication(s) None Disposition ICU I attest to the content of the Intraoperative Record and any orders documented therein. Any exceptions are noted below. [facility] [place] Card Cath Procedure Codes Therapeutic Services & Ancillary Proc Procedure 1: Cardiovascular Tx and Anc Procedures: 06307 Arterial Line Placement Procedure 2: Cardiovascular Tx and Anc Procedures: 48734 Temp Pacer Insert Procedure 3: Cardiovascular Tx and Anc Procedures: 56743 Ultrasonic Guidance Vascular Access Moderate Sedation Procedure 1: Sedation/Anesthesia: 56203 Mod Sedation by the same physician;Init15 Min Child Age 5 & Up PG Care Time/CCT Total # of Minutes Spent Total Time Spent with Patient: Total time spent is greater than 50% in coordination of care (as documented) at patient's floor/unit and/or counseling patient:
[2020-04-17 01:59] LABS: Troponin I 0.273 ng/ml (0-0.045)
[2020-04-17] MEDS: ACETAMINOPHEN 1,000 MG/100 ML VIAL IV PRN ×2 (02:08→19:32)
[2020-04-17] MEDS ORDERED: fentaNYL citrate 100 MCG/2 ML VIAL ONE (02:55)
[2020-04-17 03:11] LABS: Basophils # (auto) 0.02 K/uL (0-0.2); Basophils % (auto) 0.2 %; Eosinophils # (auto) 0.01 K/uL (0-0.5); Eosinophils % (auto) 0.1 %; Hematocrit (blood only) 36.5 % (42-52); Hemoglobin 12.5 g/dL (14.0-18.0); Immature Granulocytes # (auto) 0.03 K/uL (0.00-0.02); Immature Granulocytes % (auto) 0.3 %; Lymphocytes # (auto) 0.58 K/uL (1.2-3.4); Lymphocytes % (auto) 5.4 %; Mean Corpuscular Hemoglobin 31.9 pg (25-34); Mean Corpuscular Hgb Conc 34.2 g/dL (32-36); Mean Corpuscular Volume 93.1 fL (80-100); Mean Platelet Volume 9.1 fL (7.4-10.4); Monocytes # (auto) 0.44 K/uL (0.11-0.59); Monocytes % (auto) 4.1 %; Neutrophils # (auto) 9.63 K/uL (1.4-6.5); Neutrophils % (auto) 89.9 %; Platelet Count 178 K/uL (130-400); RDW Coefficient of Variation 13.5 % (11.5-14.5); RDW Standard Deviation 45.4 fL (36.4-46.3); Red Blood Count 3.92 M/uL (4.7-6.1); White Blood Count 10.71 K/uL (4.8-10.8)
[2020-04-17 03:20] LABS: INR 1.2 (0.9-1.1); Prothrombin Time 12.8 Seconds (9.0-12.0)
[2020-04-17 03:29] LABS: Albumin Level 3.1 gm/dl (3.4-5.0); BUN Creatinine Ratio 17.7 (10-20); Est GFR (African American) 30.4; Est GFR (Non-African American) 26.3; Potassium 4.7 mmol/L (3.5-5.1)
[2020-04-17 03:32] LABS: Bilirubin,Total 0.8 mg/dl (0.2-1); Globulin 3.2 gm/dl (2.5-4.0); Total Protein 6.3 gm/dl (6.4-8.2)
[2020-04-17] MEDS ORDERED: DOPamine 400MG / 250ML D5W IV ONE (04:12)
[2020-04-17] MEDS ORDERED: FENTANYL BOLUS FROM BAG IV PRN (04:20)
[2020-04-17] MEDS: DOPAMINE / D5W 400 MG/250 ML BAG IV SCH (04:21)
--- NOTE | 2020-04-17 04:25 | History & Physical Report ---
Date of Service April 17, 2020 Assessment & Plan (1) Admitted to intensive care unit: Admitted to intensive care unit status post cardiac catheterization for complete heart block and acute respiratory failure. Consult flame cutting supervisor Dr. Kelly. Consult interventionalist Dr. Villegas Present on Admission?: Yes (2) Complete heart block: Temporary pacemaker placed during cardiac catheterization. Consult cardiology. Present on Admission?: Yes (3) On mechanically assisted ventilation: Follow usual protocol. Adjustments to be made by ICU staff Present on Admission?: Yes (4) Acute respiratory failure: Intubated for airway protection Present on Admission?: Yes (5) Hypercholesterolemia with endogenous hyperglyceridemia: Hold simvastatin Present on Admission?: Yes Admission and Anticipated Discharge Date Admission Date: April 17, 2020 History of Present Illness Chief Complaint: The patient presented to the emergency department after being found by EMS to have complete heart block that required pacing in route to the emergency department Primary Care Provider: Riki Barajas MD The patient is a 85-year-old male with a past medical history including hypertension, hyperlipidemia, muscle spasm and dermatitis. Upon presentation to the emergency department, he was found to be in complete heart block, was intubated for airway protection, and a heart alert was called. The patient was taken to the cardiac catheterization lab by Dr. Villegas, and a temporary pacemaker was placed under ultrasound guidance, and the patient was then taken to the ICU for admission. Allergies Allergy/AdvReac Type Severity Reaction Status Date / Time Penicillins Allergy Unknown HIVES Verified 04/16/20 23:06 bee pollen Allergy Unknown Verified 04/16/20 23:06 codeine Allergy Unknown Verified 04/16/20 23:06 oxycodone AdvReac Unknown N&V Verified 04/16/20 23:06 diltiazem AdvReac edema Verified 04/16/20 23:06 OPIATEAGONISTS AdvReac Unknown N&V Uncoded 04/16/20 23:06 Home Medications Home Medications Medication Instructions Recorded Confirmed Type carisoprodol 350 mg tablet 350 mg PO DAILY PRN #30 tab 07/07/19 04/16/20 Rx aspirin 325 mg PO DAILY PRN 02/03/20 04/16/20 History fluocinonide 1 applic TOPICAL BID PRN 02/03/20 04/16/20 History multivitamin with iron-mineral 1 tab PO QAM 02/03/20 04/16/20 History vitamin E 400 unit PO QAM 02/03/20 04/16/20 History simvastatin 40 mg tablet 40 mg PO HS #90 tab 02/15/20 04/16/20 Rx metoprolol tartrate 50 mg tablet 50 mg PO BID #7 tab 02/16/20 04/16/20 Rx hydrochlorothiazide 12.5 mg tablet 12.5 mg PO QAM #90 tab 02/19/20 04/16/20 Rx losartan 50 mg tablet 50 mg PO QAM #90 tab 03/01/20 04/16/20 Rx Past Med/Surg History Medical History (Updated 04/17/20 @ 01:46 by RADHA Quintanilla) Dyslipidemia Gout Helicobacter positive gastritis Herpes zoster Peptic ulcer Surgical History H/O hernia repair S/P appendectomy S/P T&A (status post tonsillectomy and adenoidectomy) Total knee replacement status Family History Other Coronary heart disease Social History Smoking Status: Former smoker Hx Alcohol Use: No Hx Substance Use: No Communication Ability: Impaired marital status: Current Living Situation: Spouse current occupational status: retired Feels Safe at Home: Yes Review of Systems Review of Systems: Unobtainable due to reduced consciousness T. Physical Exam Physical Exam: The patient is intubated and sedated. HEENT--PERRL, mucous membranes and oropharynx dry. Neck-- No JVD. No bruits. Thyroid normal, trachea midline, no adenopathy. Heart--normal S1 and S2. No murmurs, rubs or gallops. Lungs--clear bilaterally, no respiratory distress, no accessory muscle use. Abdomen--normal bowel sounds and soft. Nontender. Nondistended. Extremities--no cyanosis or clubbing. No edema. Dermatologic--normal skin turgor, normal color. Neurologic--intubated and sedated Rheumatologic--intubated and sedated Psychiatric--intubated and sedated Results & Data Results & Data ([facility]) Vital Signs (Past 12 Hours) Vital Signs Temp Pulse Pulse Resp BP Pulse Ox 04/17/20 02:00 103.8 F H 80 80 18 160/68 H 99 04/17/20 00:12 80 26 H 100 04/16/20 23:12 98.4 F 04/16/20 23:10 70 04/16/20 23:05 96 04/16/20 23:01 70 04/16/20 23:00 69 26 H 100 04/16/20 22:50 70 98 04/16/20 22:49 70 26 H 96 04/16/20 22:40 32 L 91 04/16/20 22:34 39 L 28 H 85 L Laboratory Results Laboratory Results WBC 10.71 K/uL (4.8-10.8) 04/17/20 03:00 RBC 3.92 M/uL (4.7-6.1) L 04/17/20 03:00 Hgb 12.5 g/dL (14.0-18.0) L 04/17/20 03:00 POC Hgb 11.9 g/dl (14.0-18.0) L 04/17/20 01:15 Hct 36.5 % (42-52) L 04/17/20 03:00 POC Hct 35 % (42-52) L 04/17/20 01:15 MCV 93.1 fL (80-100) 04/17/20 03:00 MCH 31.9 pg (25-34) 04/17/20 03:00 MCHC 34.2 g/dL (32-36) 04/17/20 03:00 RDW Std Deviation 45.4 fL (36.4-46.3) 04/17/20 03:00 RDW Coeff of Mame 13.5 % (11.5-14.5) 04/17/20 03:00 Plt Count 178 K/uL (130-400) 04/17/20 03:00 MPV 9.1 fL (7.4-10.4) 04/17/20 03:00 Immature Gran % (Auto) 0.3 % 04/17/20 03:00 Neut % (Auto) 89.9 % 04/17/20 03:00 Lymph % (Auto) 5.4 % 04/17/20 03:00 [place] % (Auto) 4.1 % 04/17/20 03:00 Eos % (Auto) 0.1 % 04/17/20 03:00 Baso % (Auto) 0.2 % 04/17/20 03:00 Neut # (Auto) 9.63 K/uL (1.4-6.5) H 04/17/20 03:00 Lymph # (Auto) 0.58 K/uL (1.2-3.4) L 04/17/20 03:00 [place] # (Auto) 0.44 K/uL (0.11-0.59) 04/17/20 03:00 Eos # (Auto) 0.01 K/uL (0-0.5) 04/17/20 03:00 Baso # (Auto) 0.02 K/uL (0-0.2) 04/17/20 03:00 Immature Gran # (Auto) 0.03 K/uL (0.00-0.02) H 04/17/20 03:00 PT 12.8 Seconds (9.0-12.0) H 04/17/20 03:00 INR 1.2 (0.9-1.1) H 04/17/20 03:00 APTT 27.3 Seconds (21.0-31.0) 04/16/20 22:50 PTT Ratio 1.0 04/16/20 22:50 Sample Site Art Line 04/17/20 01:15 POC pH 7.38 (7.35-7.45) 04/17/20 01:15 POC pCO2 33 mmHg (35-46) L 04/17/20 01:15 POC pO2 130 mmHg (80-95) H 04/17/20 01:15 POC HCO3 20 lester/L (19-24) 04/17/20 01:15 POC Total CO2 21 mmol/L (24-31) L 04/17/20 01:15 POC Base Excess -5.0 lester/L (-9-1.8) 04/17/20 01:15 ABG pH (Temp Correct) 7.346 (7.35-7.45) L 04/17/20 01:15 ABG pCO2 (Temp Corrct 37 mmHg (35-46) 04/17/20 01:15 POC ABG pO2 at Pt Temp 147 04/17/20 01:15 POC ABG O2 Sat 99.0 % (90-95) H 04/17/20 01:15 Miguel Test NA 04/17/20 01:15 O2 Delivery Device Ventilator 04/17/20 01:15 POC O2 Rate 18 04/17/20 01:15 Minute Ventilation 9.0 04/17/20 01:15 POC FiO2 70 % 04/17/20 01:15 Tidal Volume 500 04/17/20 01:15 PEEP 10 04/17/20 01:15 POC Sodium 141 mmol/L (135-144) 04/17/20 01:15 Sodium 139 mmol/L (136-145) 04/17/20 03:00 POC Potassium 4.4 mmol/L (3.3-5.0) 04/17/20 01:15 Potassium 4.7 mmol/L (3.5-5.1) 04/17/20 03:00 POC Chloride 102 mmol/L (101-112) 04/16/20 22:42 Chloride 111 mmol/L (98-107) H 04/17/20 03:00 Carbon Dioxide 21 mmol/L (21-32) 04/17/20 03:00 POC Total CO2 23 mmol/L (24-31) L 04/16/20 22:42 Anion Gap 7.0 (3-11) 04/17/20 03:00 POC Anion Gap 19.0 mmol/L (16-25) 04/16/20 22:42 POC BUN 37 mg/dl (7-18) H 04/16/20 22:42 BUN 39 mg/dl (7-18) H 04/17/20 03:00 Creatinine 2.18 mg/dl (0.6-1.4) H 04/17/20 03:00 POC Creatinine 1.9 mg/dl (0.6-1.3) H 04/16/20 22:42 Est Cr Clr Drug Dosing 27.0 ml/min 04/17/20 03:00 Est GFR ( Amer) 30.4 04/17/20 03:00 Est GFR (Non-Af Amer) 26.3 04/17/20 03:00 BUN/Creatinine Ratio 17.7 (10-20) 04/17/20 03:00 Glucose 126 mg/dl (70-99) H 04/17/20 03:00 POC Glucose (other) 156 mg/dl (70-99) H 04/16/20 22:42 Lactate 1.6 mmol/L (0.4-2.0) 04/17/20 03:00 Calcium 8.0 mg/dl (8.5-10.1) L 04/17/20 03:00 POC Ioniz Calcium [place] 1.17 mmol/l (1.12-1.32) 04/16/20 22:42 Magnesium 2.0 mg/dl (1.8-2.4) 04/16/20 22:50 Total Bilirubin 0.8 mg/dl (0.2-1) 04/17/20 03:00 Direct Bilirubin 0.1 mg/dl (0-0.2) 04/16/20 22:50 AST 42 U/L (15-37) H 04/17/20 03:00 ALT 44 U/L (12-78) 04/17/20 03:00 Alkaline Phosphatase 57 U/L (45-117) 04/17/20 03:00 Total Creatine Kinase 256 U/L (39-308) 04/17/20 01:24 Troponin I 0.273 ng/ml (0-0.045) H* 04/17/20 01:24 Total Protein 6.3 gm/dl (6.4-8.2) L 04/17/20 03:00 Albumin 3.1 gm/dl (3.4-5.0) L 04/17/20 03:00 Globulin 3.2 gm/dl (2.5-4.0) 04/17/20 03:00 Albumin/Globulin Ratio 1.0 (0.9-2) 04/17/20 03:00 Procalcitonin 3.08 ng/ml (0-0.5) H 04/17/20 03:00 Urine Color Yellow 04/16/20 22:51 Urine Appearance Clear (Clear) 04/16/20 22:51 Urine pH 6.0 (4.5-7.5) 04/16/20 22:51 Ur Specific [place] 1.014 (1.000-1.030) 04/16/20 22:51 Urine Protein Negative (Negative) 04/16/20 22:51 Urine Glucose (UA) Negative (Negative) 04/16/20 22:51 Urine Ketones Negative (Negative) 04/16/20 22:51 Urine Blood Trace (Negative) H 09/01/20 22:51 Urine Nitrite Negative (Negative) 04/16/20 22:51 Urine Bilirubin Negative (Negative) 04/16/20 22:51 Urine Urobilinogen Negative (Negative) 04/16/20 22:51 Ur Leukocyte Esterase Negative (Negative) 04/16/20 22:51 Urine WBC (Auto) 0 /hpf (0-5) 04/16/20 22:51 Urine RBC (Auto) 0-4 /hpf (0-4) 04/16/20 22:51 U Hyaline Cast (Auto) 0 /lpf (0-5) 04/16/20 22:51 U Epithel Cells (Auto) 10-20 /lpf (0-5) H 04/16/20 22:51 Urine Bacteria (Auto) Negative (Negative) 04/16/20 22:51 Code Status & VTE Plan Code Status Full code VTE Prophylaxis Plan VTE Prophylaxis will be ordered: Yes Critical Care Time Critical Care Time: Yes Total Critical Care Time: 35 PG Care Time/CCT Total # of Minutes Spent Total Time Spent with Patient: Total time spent is greater than 50% in coordination of care (as documented) at patient's floor/unit and/or counseling patient: Critical Care Time: Yes Total Critical Care Time: 35 Coding Level of Care Code 90964 Initial Inpt Care Lvl 3 Diagnoses Admitted to intensive care unit Z78.9 Complete heart block I44.2 On mechanically assisted ventilation Z99.11 Acute respiratory failure J96.00 Respiratory failure complication: unspecified whether with hypoxia or hypercapnia Hypercholesterolemia with endogenous hyperglyceridemia E78.2 Additional Codes Critical Care Time - Critical Care Time: Yes ([id number]) Time Spent (min) 35 (1) Acute respiratory failure Respiratory failure complication: unspecified whether with hypoxia or hypercapnia Qualified Code(s): J96.00 - Acute respiratory failure, unspecified whether with hypoxia or hypercapnia
[2020-04-17] MEDS ORDERED: fentaNYL DRIP 1,250 MCG/250 ML BAG IV SCH (04:30)
[2020-04-17] MEDS ORDERED: fentaNYL citrate 100 MCG/2 ML VIAL IV STA (04:36)
[2020-04-17 05:14] LABS: iSTAT Art Bld Gas pCO2 Correct 35 mmHg (35-46); iSTAT Art Bld Gas pH Corrected 7.372 (7.35-7.45); iSTAT Arterial Blood Gas HCO3 20 meg/L (19-24); iSTAT Arterial Blood Gas pCO2 35 mmHg (35-46); iSTAT Arterial Blood Gas pH 7.38 (7.35-7.45); iSTAT Arterial Blood Gas pO2 62 mmHg (80-95); iSTAT Arterial Blood Gas pO2 C 64; iSTAT Carbon Dioxide 21 mmol/L (24-31); iSTAT FiO2 50 %; iSTAT Hematocrit 39 % (42-52); iSTAT Hemoglobin 13.3 g/dl (14.0-18.0); iSTAT Potassium 4.6 mmol/L (3.3-5.0); iSTAT Site Art Line; iSTAT Sodium 140 mmol/L (135-144)
[2020-04-17] MEDS ORDERED: CEFEPIME 2,000 MG in SYRINGE 7.5 ML IV SCH ×2 (06:00→20:00)
[2020-04-17 06:08] LABS: Lyme Ab IgG w/WB Rflx Negative (Negative); Lyme Ab IgM w/WB Rflx Negative (Negative)
--- NOTE | 2020-04-17 06:59 | XRay Report ---
XR chest 1V portable CLINICAL HISTORY: cardiac arrest COMPARISON STUDY: 07/05/2008 FINDINGS: r there is an endotracheal tube 4 cm above the duncan. There is a nasogastric tube which pa sses into the stomach. The heart is enlarged. There is slight elevation of interstitium suggesting mi ld pulmonary vascular congestion. There are minor left basilar atelectatic changes. No pneumothorax i s visualized on the supine study.[ IMPRESSION: 1. Cardiomegaly and mild pulmonary vascular congestion 2. No evidence of lobar consolidation 3. Endotracheal tube 4 cm above the duncan. Nasogastric tube with its tip in the stomach ACT 112: Negative or not required by law. Electronically signed by: Nicolas Llanes M.D. 04/17/2020 6:57 AM
--- NOTE | 2020-04-17 07:14 | XRay Report ---
XR chest 1V portable HISTORY: 85 years-old Male resp failure acute respiratory failure COMPARISON: Chest radiograph 04/16/2020 TECHNIQUE: Portable AP view of the chest FINDINGS: Cardiac silhouette is enlarged, unchanged. Calcified plaque of the thoracic aorta arch. Endotracheal tube overlies the midline, 3.6 cm superior to the duncan. Enteric tube courses below the diaphragm ou tside the [id number]. There is a lead device noted overlying the right IJ and right heart distribu tions. Mild pulmonary vascular congestion. There is no pneumothorax, pleural effusion or overt pulmon blanca edema. Mild bibasilar and right infrahilar opacities suggest atelectasis. Degenerative changes of the shoulders and spine. IMPRESSION: 1. Cardiomegaly with pulmonary vascular congestion. 2. Endotracheal and enteric tubes as above. 3. Mild bibasilar opacities favor atelectasis. ACT 112: Negative or not required by law. The above report was generated using voice recognition software. It may contain grammatical, syntax o r spelling errors. Electronically signed by: Desmond Saldana M.D. 04/17/2020 7:13 AM
[2020-04-17] MEDS: HEPARIN SOD 5,000 UNIT/0.5 ML VIAL SQ SCH ×2 (08:39→21:41)
[2020-04-17] MEDS ORDERED: PNEUMOCOCCAL ADMINISTRATION CHARGE ONE (09:00)
[2020-04-17] MEDS ORDERED: FAMOTIDINE 20 MG in SYRINGE 3 ML IV SCH (09:00)
[2020-04-17] MEDS ORDERED: PNEUMOCOCCAL POLYSACCHARIDES 25 MCG/0.5 ML VIAL/SYR IM ONE (09:00)
[2020-04-17 09:53] LABS: iSTAT Arterial Blood Gas HCO3 20 meg/L (19-24); iSTAT Arterial Blood Gas pCO2 44 mmHg (35-46); iSTAT Arterial Blood Gas pH 7.27 (7.35-7.45); iSTAT Arterial Blood Gas pO2 282 mmHg (80-95); iSTAT Carbon Dioxide 22 mmol/L (24-31); iSTAT Hematocrit 39 % (42-52); iSTAT Hemoglobin 13.3 g/dl (14.0-18.0); iSTAT Sodium 139 mmol/L (135-144)
--- NOTE | 2020-04-17 10:54 | Cardiology Progress Note ---
Date of Service April 17, 2020 Assessment & Plan (1) Complete heart block: -the patient has a temporary transvenous pacemaker. -he presented with symptomatic complete heart block and respiratory failure. -was febrile to 40 C early this morning. -COVID-19 negative. -Lyme disease negative. -Dr. Smith to see later today. (2) Hypotension: -remains on low-dose dopamine. -antihypertensives on hold. (3) Hypercholesterolemia: -simvastatin on hold Admission and Anticipated Discharge Date Admission Date: April 17, 2020 Subjective The patient is resting comfortably in bed without complaints of chest pain, dyspnea, syncope, or presyncope. We reviewed the events of last evening and the need for permanent pacemaker. Physical Exam Physical Exam: In general this is a well-developed well-nourished white male in no acute distress. HEENT exam is negative. Neck reveals normal carotid upstrokes without bruits. No jugular venous distension. There is no thyromegaly. Cardiovascular exam reveals a regular rhythm with a normal S1 and S2. No murmurs, S3, or S4 are noted. Lungs are clear without rales, rhonchi, or wheezes. Abdomen is soft without bruits. Diastasis recti is noted. Extremities reveal intact radial artery and posterior tibial pulses bilaterally. There is no peripheral edema. Results & Data ([facility]) Vital Signs (Past 12 Hours) Vital Signs Temp Pulse Pulse Resp BP BP Pulse Ox 04/17/20 07:01 37.2 C 65 98 04/17/20 07:00 37.2 C 58 L 124/49 L 99 04/17/20 06:45 37.2 C 58 L 120/46 L 98 04/17/20 06:30 37.3 C 87 92 04/17/20 06:15 37.3 C 61 105/44 L 97 04/17/20 06:01 37.3 C 62 97 04/17/20 06:00 37.3 C 61 111/45 L 97 04/17/20 05:45 37.3 C 68 105/53 L 96 04/17/20 05:31 37.3 C 82 04/17/20 05:30 37.3 C 66 114/44 L 97 04/17/20 05:16 37.3 C 68 96 04/17/20 05:15 37.3 C 67 126/50 L 96 04/17/20 05:00 37.4 C 79 150/53 H 96 04/17/20 04:50 83 18 95 04/17/20 04:45 37.7 C H 83 160/58 H 95 04/17/20 04:31 38.1 C H 75 136/57 L 95 04/17/20 04:15 38.5 C H 65 98/44 L 98 04/17/20 04:00 38.6 C H 68 77/45 L 96 04/17/20 03:53 38.7 C H 70 85/42 L 97 04/17/20 03:45 38.8 C H 69 84/42 L 96 04/17/20 03:38 38.9 C H 78 110/53 L 98 04/17/20 03:30 39.2 C H 80 90/65 L 97 04/17/20 03:15 39.4 C H 80 107/44 L 97 04/17/20 03:00 39.7 C H 81 99/50 L 96 04/17/20 02:45 39.8 C H 80 86/45 L 98 04/17/20 02:30 40.0 C H 80 81/41 L 98 04/17/20 02:15 40.0 C H 80 108/39 L 99 04/17/20 02:00 40.0 C H 80 80 18 131/49 L 160/68 H 99 04/17/20 01:55 40.0 C H 80 132/48 L 04/17/20 01:30 40.0 C H 80 131/53 L 98 04/17/20 01:15 80 114/48 L 100 04/17/20 01:00 80 110/43 L 100 04/17/20 00:45 80 108/45 L 99 04/17/20 00:31 80 139/59 L 04/17/20 00:15 80 16 176/60 H 100 04/17/20 00:12 80 26 H 100 04/17/20 00:10 80 22 182/65 H 100 04/16/20 23:12 36.9 C 04/16/20 23:10 70 04/16/20 23:05 96 04/16/20 23:01 70 04/16/20 23:00 69 26 H 100 04/16/20 22:50 70 98 04/16/20 22:49 70 26 H 96 04/16/20 22:40 32 L 91 PG Care Time/CCT Total # of Minutes Spent Total Time Spent with Patient: Total time spent is greater than 50% in coordination of care (as documented) at patient's floor/unit and/or counseling patient: Coding Level of Care Code 03226 Subseq Hosp Care Lvl 3 Diagnoses Complete heart block I44.2 Hypotension I95.9 Hypercholesterolemia E78.00
--- NOTE | 2020-04-17 14:00 | Communication Note ---
Date of Service: April 17, 2020 Patient was discussed in multidisciplinary rounds. Patient was awake alert following commands he was subsequently extubated. He was able to discuss course of treatment with cardiology, anticipate pacemaker placement tomorrow Continued febrility, no obvious source and he is saturating well on room air. Blood cultures are pending, anticipate the fever is likely secondary to an aspiration pneumonitis, we will repeat blood cultures should he continue to be febrile. Urine is not indicative of infection, no obvious pneumonia, renal insufficiency with a mild decrease in GFR, I am not convinced the elevated procalcitonin is truly reflective of infection. AST is minimally elevated otherwise LFTs are within normal limits no evidence to suggest AST is minimally elevated at 42, otherwise LFTs are unremarkable, patient was not having abdominal pain suggestive of appendicitis nor biliary disease. Peripheral smear is negative for tickborne disease, Lyme negative and his COVID test was also negative. At this time I feel it reasonable to discontinue antibiotics and continue to clinically monitor the patient and repeat blood cultures should he have another episode of febrility as the source is not obvious and if this truly does represent infection I think viral etiology could possibly be the most likely diagnosis Coding Level of Care Code Critical Care kelly [email or web address] 30 min Time Spent (min) 45 Comment I have personally spent 45 minutes of critical care time in the direct management of this patient. This is a life/limb threatening event. This includes time spent evaluating patient, direct bedside care, chart review, placing orders, interpretation of diagnostic studies, discussion with consultants, patient, and/or family members regarding treatment decisions, as well as other required patient management activities. This time is exclusive of all separately billable procedures, and teaching time and separate from and in addition to any other critical care service time.
[2020-04-17] MEDS ORDERED: ETOMIDATE 2 MG/ML 20 ML VIAL IV ONE (15:03)
[2020-04-17] MEDS ORDERED: MIDAZOLAM HCL 5 MG/ML VIAL IV ONE (15:03)
[2020-04-17] MEDS ORDERED: fentaNYL citrate 100 MCG/2 ML VIAL IV ONE (15:03)
[2020-04-17] MEDS ORDERED: KETAMINE HCL INJ 50 MG/ML 10 ML VIAL IV ONE (15:03)
[2020-04-17] MEDS ORDERED: COUGH DROP (SUGAR FREE) LOZ 24 LOZ/1 BOX BUCCAL ONE (16:08)
--- NOTE | 2020-04-17 16:21 | XCELERA ---
[id number]
[2020-04-17 20:36] LABS: Adenovirus PCR Not Detected (NotDetected); Bordetella parapertussis PCR Not Detected (NotDetected); Bordetella pertussis PCR Not Detected (NotDetected); Chlamydia pneumoniae PCR Not Detected (NotDetected); Coronavirus 229E PCR Not Detected (NotDetected); Coronavirus CoV-2 (COVID19)PCR Not Detected (NotDetected); Coronavirus HKU1 PCR Not Detected (NotDetected); Coronavirus NL63 PCR Not Detected (NotDetected); Coronavirus OC43PCR Not Detected (NotDetected); Human Metapneumovirus PCR Not Detected (NotDetected); Influenza A PCR Not Detected (NotDetected); Influenza B PCR Not Detected (NotDetected); Mycoplasma pneumoniae PCR Not Detected (NotDetected); Parainfluenza Virus 1 PCR Not Detected (NotDetected); Parainfluenza Virus 2 PCR Not Detected (NotDetected); Parainfluenza Virus 3 PCR Not Detected (NotDetected); Parainfluenza Virus 4 PCR Not Detected (NotDetected); Respiratory Syncytial VirusPCR Not Detected (NotDetected); Rhinovirus/Enterovirus PCR Not Detected (NotDetected)
--- NOTE | 2020-04-17 22:39 | Electrocardiogram Report ---
Test Reason : Blood Pressure : / mmHG Vent. Rate : 080 BPM Atrial Rate : 040 BPM P-R Int : 000 ms QRS Dur : 122 ms QT Int : 408 ms P-R-T Axes : 000 -71 119 degrees QTc Int : 470 ms Ventricular-paced rhythm Left axis deviation Abnormal ECG When compared with ECG of 22-NOV-2017 13:39, Ventricular-paced rhythm has replaced Sinus rhythm Confirmed by Jeb Cross ([id number]) on 04/17/2020 10:39:20 PM Referred By: REFERRED SELF Confirmed By:Jeb Cross
--- NOTE | 2020-04-17 22:40 | Electrocardiogram Report ---
Test Reason : Blood Pressure : / mmHG Vent. 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
--- NOTE | 2020-04-17 23:13 | Hospitalist Progress Note ---
Date of Service April 17, 2020 Assessment & Plan (1) Complete heart block: Temporary pacemaker placed by Dr Villegas on evening of admission. To microbiology lab technician for permanent pacemaker tomorrow by Dr Smith. Lyme IgM and IgG negative. (2) Acute respiratory failure: Intubated for airway protection in the ER. Now extubated and stable on NC O2. CXR without pneumonia or edema. In light of SIRS and recurrent fever along with cough/dyspnea will repeat cxr in am to exclude developing pneumonia. (3) Hypertension: Holding home meds. He remains on low-dose dopamine infusion for hypotension experienced overnight. (4) SIRS (systemic inflammatory response syndrome): etiology uncertain. COVID-19 neg. lyme neg. anaplasmosis smear neg. blood cx's from admission neg. cxr w/o pneumonia. u/a not suggestive of UTI. in light of prolonged camping trip this summer will send Anaplasmosis DNA. he still could have early Lyme despite neg Lyme ab's. strongly consider empiric doxycycline for both tickborne illnesses. In light of recent wedding hosted at his house would REPEAT a COVID test on him. agree w/ repeat blood cx's if another temp spike occurs. agree w/ empiric abx while awaiting cultures - but again strongly consider empiric doxy. (5) Hypercholesterolemia: holding statin for now (6) Acute kidney injury: Cr 2.1 today Cr was 1.2 in 2018 but we have no other values over the subsequent 2-years uncertain of baseline in light of SIRS and complete heart block this still may represent FELIPA AM bmp supportive care (7) DVT prophylaxis: heparin SC 5000 BID updated at bedside Admission and Anticipated Discharge Date Admission Date: April 17, 2020 Subjective patient resting comfortably during my visit but he c/o chills and asks for additional blankets. reports a dry cough. patient states that he and spent 30 days at a camp in the [facility] from mid February to mid March. they then hosted a wedding of about 25 people in their backyard about a week ago. attendees were supposed to be tested for COVID but they are not certain that happened. apparently no one from the wedding is currently ill. he does not remember tick bites. his appetite remains poor. he simply feels unwell. Review of Systems Constitutional: + fever, + chills, + fatigue and + anorexia; no body aches Ear, Nose, Mouth, Throat: no sore throat no loss of taste or smell Respiratory: + cough and + dyspnea Cardiovascular: no chest pain Gastrointestinal: no abdominal pain, no nausea and no diarrhea/loose stools Physical Exam Constitutional: well developed and well nourished; no acute distress and no altered mental status ENMT: external ear and nose normal, oropharynx normal Respiratory: normal respiratory effort, lungs clear to auscultation Cardiovascular: Rate/Rhythm: regular rate and regular rhythm Heart Sounds: normal S1 and normal S2; no murmur Vessels: posterior tibial pulses present and dorsalis pedis pulses present; no JVD Extremities: no edema right IJ temp pacer in place; art line right arm Gastrointestinal (Abdomen): normal bowel sounds, soft, nontender, no hepatosplenomegaly Skin: no rashes, warm and dry Psychiatric: A+Ox3, euthymic affect Results & Data Results & Data ([facility]) Vital Signs (Past 12 Hours) Vital Signs Temp Pulse Resp BP Pulse Ox 04/17/20 21:30 38.6 C H 55 L 18 97 04/17/20 21:00 38.9 C H 54 L 18 121/36 L 97 04/17/20 20:30 39.2 C H 60 20 94 04/17/20 20:00 39.3 C H 50 L 24 121/41 L 92 04/17/20 19:30 39.2 C H 50 L 24 93 04/17/20 19:00 38.9 C H 50 L 22 138/50 L 96 04/17/20 18:00 38.2 C H 52 L 154/48 H 96 04/17/20 17:00 37.6 C H 63 04/17/20 16:00 37.2 C 66 146/51 H 100 04/17/20 15:00 37.0 C 60 134/48 L 100 04/17/20 14:00 36.9 C 60 123/52 L 99 04/17/20 13:00 36.8 C 66 136/48 L 100 04/17/20 12:00 36.8 C 64 136/53 L 100 Laboratory Results Laboratory Results - last 24 hr 04/16/20 04/16/20 04/16/20 22:50 22:50 22:50 WBC RBC Hgb POC Hgb Hct POC Hct MCV MCH MCHC RDW Std Deviation RDW Coeff of Mame Plt Count MPV Immature Gran % (Auto) Neut % (Auto) Lymph % (Auto) [place] % (Auto) Eos % (Auto) Baso % (Auto) Neut # (Auto) Lymph # (Auto) [place] # (Auto) Eos # (Auto) Baso # (Auto) Immature Gran # (Auto) PT 11.9 INR 1.1 APTT 27.3 PTT Ratio 1.0 Sample Site POC pH POC pCO2 POC pO2 POC HCO3 POC Total CO2 POC Base Excess ABG pH (Temp Correct) ABG pCO2 (Temp Corrct POC ABG pO2 at Pt Temp POC ABG O2 Sat Miguel Test O2 Delivery Device POC O2 Rate Minute Ventilation POC FiO2 Tidal Volume PEEP POC Sodium Sodium 138 POC Potassium Potassium 4.6 Chloride 106 Carbon Dioxide 23 Anion Gap 9.0 BUN 37 H Creatinine 1.99 H Est Cr Clr Drug Dosing 29.6 Est GFR ( Amer) 34.0 Est GFR (Non-Af Amer) 29.3 BUN/Creatinine Ratio 18.6 Glucose 163 H POC Glucose Lactate Calcium 8.7 Magnesium 2.0 Total Bilirubin 0.4 Direct Bilirubin 0.1 AST 29 ALT 32 Alkaline Phosphatase 61 Total Creatine Kinase Troponin I < 0.015 Total Protein 7.1 Albumin 3.6 Globulin Albumin/Globulin Ratio Procalcitonin Nasal Screen MRSA (PCR) Adenovirus (PCR) Anaplasma Smear B. pertussis DNA (PCR) B.parapertussis DNA PCR Lyme Disease IgG Ab Negative Lyme Disease IgM Ab Negative C. pneumoniae DNA (PCR) Coronavirus OC43 (PCR) Coronavirus HKU1 (PCR) Coronavirus 229E (PCR) COVID-19 Eval Order COVID-19 PCR Coronavirus NL63 (PCR) Human Metapneumovir PCR Influenza Type A (PCR) Influenza Type B (PCR) M. pneumoniae (PCR) Parainfluenza 1 (PCR) Parainfluenza 2 (PCR) Parainfluenza 3 (PCR) Parainfluenza 4 (PCR) RSV (PCR) Entero/Rhino (PCR) 04/16/20 04/17/20 04/17/20 23:50 01:15 01:24 WBC RBC Hgb POC Hgb 13.3 L 11.9 L Hct POC Hct 39 L 35 L MCV MCH MCHC RDW Std Deviation RDW Coeff of Mame Plt Count MPV Immature Gran % (Auto) Neut % (Auto) Lymph % (Auto) [place] % (Auto) Eos % (Auto) Baso % (Auto) Neut # (Auto) Lymph # (Auto) [place] # (Auto) Eos # (Auto) Baso # (Auto) Immature Gran # (Auto) PT INR APTT PTT Ratio Sample Site Art Line POC pH 7.27 L 7.38 POC pCO2 44 33 L POC pO2 282 H 130 H POC HCO3 20 20 POC Total CO2 22 L 21 L POC Base Excess -7.0 -5.0 ABG pH (Temp Correct) 7.346 L ABG pCO2 (Temp Corrct 37 POC ABG pO2 at Pt Temp 147 POC ABG O2 Sat 100.0 H 99.0 H Miguel Test NA O2 Delivery Device Ventilator POC O2 Rate 18 Minute Ventilation 9.0 POC FiO2 70 Tidal Volume 500 PEEP 10 POC Sodium 139 141 Sodium POC Potassium 5.0 4.4 Potassium Chloride Carbon Dioxide Anion Gap BUN Creatinine Est Cr Clr Drug Dosing Est GFR ( Amer) Est GFR (Non-Af Amer) BUN/Creatinine Ratio Glucose POC Glucose Lactate Calcium Magnesium Total Bilirubin Direct Bilirubin AST ALT Alkaline Phosphatase Total Creatine Kinase 256 Troponin I 0.273 H* Total Protein Albumin Globulin Albumin/Globulin Ratio Procalcitonin Nasal Screen MRSA (PCR) Adenovirus (PCR) Anaplasma Smear B. pertussis DNA (PCR) B.parapertussis DNA PCR Lyme Disease IgG Ab Lyme Disease IgM Ab C. pneumoniae DNA (PCR) Coronavirus OC43 (PCR) Coronavirus HKU1 (PCR) Coronavirus 229E (PCR) COVID-19 Eval Order COVID-19 PCR Coronavirus NL63 (PCR) Human Metapneumovir PCR Influenza Type A (PCR) Influenza Type B (PCR) M. pneumoniae (PCR) Parainfluenza 1 (PCR) Parainfluenza 2 (PCR) Parainfluenza 3 (PCR) Parainfluenza 4 (PCR) RSV (PCR) Entero/Rhino (PCR) 04/17/20 04/17/20 04/17/20 03:00 03:00 03:00 WBC 10.71 RBC 3.92 L Hgb 12.5 L POC Hgb Hct 36.5 L POC Hct MCV 93.1 MCH 31.9 MCHC 34.2 RDW Std Deviation 45.4 RDW Coeff of Mame 13.5 Plt Count 178 MPV 9.1 Immature Gran % (Auto) 0.3 Neut % (Auto) 89.9 Lymph % (Auto) 5.4 [place] % (Auto) 4.1 Eos % (Auto) 0.1 Baso % (Auto) 0.2 Neut # (Auto) 9.63 H Lymph # (Auto) 0.[address] [place] # (Auto) 0.44 Eos # (Auto) 0.01 Baso # (Auto) 0.02 Immature Gran # (Auto) 0.03 H PT 12.8 H INR 1.2 H APTT PTT Ratio Sample Site POC pH POC pCO2 POC pO2 POC HCO3 POC Total CO2 POC Base Excess ABG pH (Temp Correct) ABG pCO2 (Temp Corrct POC ABG pO2 at Pt Temp POC ABG O2 Sat Miguel Test O2 Delivery Device POC O2 Rate Minute Ventilation POC FiO2 Tidal Volume PEEP POC Sodium Sodium 139 POC Potassium Potassium 4.7 Chloride 111 H Carbon Dioxide 21 Anion Gap 7.0 BUN 39 H Creatinine 2.18 H Est Cr Clr Drug Dosing 27.0 Est GFR ( Amer) 30.4 Est GFR (Non-Af Amer) 26.3 BUN/Creatinine Ratio 17.7 Glucose 126 H POC Glucose Lactate Calcium 8.0 L Magnesium Total Bilirubin 0.8 Direct Bilirubin AST 42 H ALT 44 Alkaline Phosphatase 57 Total Creatine Kinase Troponin I Total Protein 6.3 L Albumin 3.1 L Globulin 3.2 Albumin/Globulin Ratio 1.0 Procalcitonin Nasal Screen MRSA (PCR) Adenovirus (PCR) Anaplasma Smear B. pertussis DNA (PCR) B.parapertussis DNA PCR Lyme Disease IgG Ab Lyme Disease IgM Ab C. pneumoniae DNA (PCR) Coronavirus OC43 (PCR) Coronavirus HKU1 (PCR) Coronavirus 229E (PCR) COVID-19 Eval Order COVID-19 PCR Coronavirus NL63 (PCR) Human Metapneumovir PCR Influenza Type A (PCR) Influenza Type B (PCR) M. pneumoniae (PCR) Parainfluenza 1 (PCR) Parainfluenza 2 (PCR) Parainfluenza 3 (PCR) Parainfluenza 4 (PCR) RSV (PCR) Entero/Rhino (PCR) 04/17/20 04/17/20 04/17/20 03:00 03:00 05:00 WBC RBC Hgb POC Hgb 13.3 L Hct POC Hct 39 L MCV MCH MCHC RDW Std Deviation RDW Coeff of Mame Plt Count MPV Immature Gran % (Auto) Neut % (Auto) Lymph % (Auto) [place] % (Auto) Eos % (Auto) Baso % (Auto) Neut # (Auto) Lymph # (Auto) [place] # (Auto) Eos # (Auto) Baso # (Auto) Immature Gran # (Auto) PT INR APTT PTT Ratio Sample Site Art Line POC pH 7.38 POC pCO2 35 POC pO2 62 L POC HCO3 20 POC Total CO2 21 L POC Base Excess -5.0 ABG pH (Temp Correct) 7.372 ABG pCO2 (Temp Corrct 35 POC ABG pO2 at Pt Temp 64 POC ABG O2 Sat 91.0 Miguel Test NA O2 Delivery Device Ventilator POC O2 Rate 18 Minute Ventilation 9.0 POC FiO2 50 Tidal Volume 500 PEEP 8 POC Sodium 140 Sodium POC Potassium 4.6 Potassium Chloride Carbon Dioxide Anion Gap BUN Creatinine Est Cr Clr Drug Dosing Est GFR ( Amer) Est GFR (Non-Af Amer) BUN/Creatinine Ratio Glucose POC Glucose Lactate 1.6 Calcium Magnesium Total Bilirubin Direct Bilirubin AST ALT Alkaline Phosphatase Total Creatine Kinase Troponin I Total Protein Albumin Globulin Albumin/Globulin Ratio Procalcitonin 3.08 H Nasal Screen MRSA (PCR) Adenovirus (PCR) Anaplasma Smear B. pertussis DNA (PCR) B.parapertussis DNA PCR Lyme Disease IgG Ab Lyme Disease IgM Ab C. pneumoniae DNA (PCR) Coronavirus OC43 (PCR) Coronavirus HKU1 (PCR) Coronavirus 229E (PCR) COVID-19 Eval Order COVID-19 PCR Coronavirus NL63 (PCR) Human Metapneumovir PCR Influenza Type A (PCR) Influenza Type B (PCR) M. pneumoniae (PCR) Parainfluenza 1 (PCR) Parainfluenza 2 (PCR) Parainfluenza 3 (PCR) Parainfluenza 4 (PCR) RSV (PCR) Entero/Rhino (PCR) 04/17/20 04/17/20 04/17/20 05:30 05:30 08:58 WBC RBC Hgb POC Hgb Hct POC Hct MCV MCH MCHC RDW Std Deviation RDW Coeff of Mame Plt Count MPV Immature Gran % (Auto) Neut % (Auto) Lymph % (Auto) [place] % (Auto) Eos % (Auto) Baso % (Auto) Neut # (Auto) Lymph # (Auto) [place] # (Auto) Eos # (Auto) Baso # (Auto) Immature Gran # (Auto) PT INR APTT PTT Ratio Sample Site POC pH POC pCO2 POC pO2 POC HCO3 POC Total CO2 POC Base Excess ABG pH (Temp Correct) ABG pCO2 (Temp Corrct POC ABG pO2 at Pt Temp POC ABG O2 Sat Miguel Test O2 Delivery Device POC O2 Rate Minute Ventilation POC FiO2 Tidal Volume PEEP POC Sodium Sodium POC Potassium Potassium Chloride Carbon Dioxide Anion Gap BUN Creatinine Est Cr Clr Drug Dosing Est GFR ( Amer) Est GFR (Non-Af Amer) BUN/Creatinine Ratio Glucose POC Glucose Lactate Calcium Magnesium Total Bilirubin Direct Bilirubin AST ALT Alkaline Phosphatase Total Creatine Kinase Troponin I 0.662 H* Total Protein Albumin Globulin Albumin/Globulin Ratio Procalcitonin Nasal Screen MRSA (PCR) Adenovirus (PCR) Anaplasma Smear B. pertussis DNA (PCR) B.parapertussis DNA PCR Lyme Disease IgG Ab Lyme Disease IgM Ab C. pneumoniae DNA (PCR) Coronavirus OC43 (PCR) Coronavirus HKU1 (PCR) Coronavirus 229E (PCR) COVID-19 Eval Order Covid19 Done at [facility] COVID-19 PCR NEGATIVE Coronavirus NL63 (PCR) Human Metapneumovir PCR Influenza Type A (PCR) Influenza Type B (PCR) M. pneumoniae (PCR) Parainfluenza 1 (PCR) Parainfluenza 2 (PCR) Parainfluenza 3 (PCR) Parainfluenza 4 (PCR) RSV (PCR) Entero/Rhino (PCR) 04/17/20 04/17/20 04/17/20 09:05 17:06 19:15 WBC RBC Hgb POC Hgb Hct POC Hct MCV MCH MCHC RDW Std Deviation RDW Coeff of Mame Plt Count MPV Immature Gran % (Auto) Neut % (Auto) Lymph % (Auto) [place] % (Auto) Eos % (Auto) Baso % (Auto) Neut # (Auto) Lymph # (Auto) [place] # (Auto) Eos # (Auto) Baso # (Auto) Immature Gran # (Auto) PT INR APTT PTT Ratio Sample Site POC pH POC pCO2 POC pO2 POC HCO3 POC Total CO2 POC Base Excess ABG pH (Temp Correct) ABG pCO2 (Temp Corrct POC ABG pO2 at Pt Temp POC ABG O2 Sat Miguel Test O2 Delivery Device POC O2 Rate Minute Ventilation POC FiO2 Tidal Volume PEEP POC Sodium Sodium POC Potassium Potassium Chloride Carbon Dioxide Anion Gap BUN Creatinine Est Cr Clr Drug Dosing Est GFR ( Amer) Est GFR (Non-Af Amer) BUN/Creatinine Ratio Glucose POC Glucose Lactate Calcium Magnesium Total Bilirubin Direct Bilirubin AST ALT Alkaline Phosphatase Total Creatine Kinase Troponin I 0.442 H* Total Protein Albumin Globulin Albumin/Globulin Ratio Procalcitonin Nasal Screen MRSA (PCR) Adenovirus (PCR) Not Detected Anaplasma Smear See Comment B. pertussis DNA (PCR) Not Detected B.parapertussis DNA PCR Not Detected Lyme Disease IgG Ab Lyme Disease IgM Ab C. pneumoniae DNA (PCR) Not Detected Coronavirus OC43 (PCR) Not Detected Coronavirus HKU1 (PCR) Not Detected Coronavirus 229E (PCR) Not Detected COVID-19 Eval Order COVID-19 PCR Not Detected Coronavirus NL63 (PCR) Not Detected Human Metapneumovir PCR Not Detected Influenza Type A (PCR) Not Detected Influenza Type B (PCR) Not Detected M. pneumoniae (PCR) Not Detected Parainfluenza 1 (PCR) Not Detected Parainfluenza 2 (PCR) Not Detected Parainfluenza 3 (PCR) Not Detected Parainfluenza 4 (PCR) Not Detected RSV (PCR) Not Detected Entero/Rhino (PCR) Not Detected 04/17/20 04/17/20 21:39 Unknown WBC RBC Hgb POC Hgb Hct POC Hct MCV MCH MCHC RDW Std Deviation RDW Coeff of Mame Plt Count MPV Immature Gran % (Auto) Neut % (Auto) Lymph % (Auto) [place] % (Auto) Eos % (Auto) Baso % (Auto) Neut # (Auto) Lymph # (Auto) [place] # (Auto) Eos # (Auto) Baso # (Auto) Immature Gran # (Auto) PT INR APTT PTT Ratio Sample Site POC pH POC pCO2 POC pO2 POC HCO3 POC Total CO2 POC Base Excess ABG pH (Temp Correct) ABG pCO2 (Temp Corrct POC ABG pO2 at Pt Temp POC ABG O2 Sat Miguel Test O2 Delivery Device POC O2 Rate Minute Ventilation POC FiO2 Tidal Volume PEEP POC Sodium Sodium POC Potassium Potassium Chloride Carbon Dioxide Anion Gap BUN Creatinine Est Cr Clr Drug Dosing Est GFR ( Amer) Est GFR (Non-Af Amer) BUN/Creatinine Ratio Glucose POC Glucose 139 H Lactate Calcium Magnesium Total Bilirubin Direct Bilirubin AST ALT Alkaline Phosphatase Total Creatine Kinase Troponin I Total Protein Albumin Globulin Albumin/Globulin Ratio Procalcitonin Nasal Screen MRSA (PCR) Negative Adenovirus (PCR) Anaplasma Smear B. pertussis DNA (PCR) B.parapertussis DNA PCR Lyme Disease IgG Ab Lyme Disease IgM Ab C. pneumoniae DNA (PCR) Coronavirus OC43 (PCR) Coronavirus HKU1 (PCR) Coronavirus 229E (PCR) COVID-19 Eval Order COVID-19 PCR Coronavirus NL63 (PCR) Human Metapneumovir PCR Influenza Type A (PCR) Influenza Type B (PCR) M. pneumoniae (PCR) Parainfluenza 1 (PCR) Parainfluenza 2 (PCR) Parainfluenza 3 (PCR) Parainfluenza 4 (PCR) RSV (PCR) Entero/Rhino (PCR) PG Care Time/CCT Total # of Minutes Spent Total Time Spent with Patient: Total time spent is greater than 50% in coordination of care (as documented) at patient's floor/unit and/or counseling patient: Coding Level of Care Code 59378 Subseq Hosp Care Lvl 2 Diagnoses Complete heart block I44.2 Acute respiratory failure J96.00 Respiratory failure complication: unspecified whether with hypoxia or hypercapnia Hypertension I10 Hypertension type: essential hypertension SIRS (systemic inflammatory response syndrome) R65.10 Hypercholesterolemia E78.00 Acute kidney injury N17.9 DVT prophylaxis Z29.9 (1) Acute respiratory failure Respiratory failure complication: unspecified whether with hypoxia or hypercapnia Qualified Code(s): J96.00 - Acute respiratory failure, unspecified whether with hypoxia or hypercapnia (2) Hypertension Hypertension type: essential hypertension Qualified Code(s): I10 - Essential (primary) hypertension
[2020-04-18] MEDS: ACETAMINOPHEN 1,000 MG/100 ML VIAL IV PRN (03:25)
[2020-04-18 04:43] LABS: Basophils # (auto) 0.03 K/uL (0-0.2); Basophils % (auto) 0.3 %; Hematocrit (blood only) 33.3 % (42-52); Hemoglobin 11.3 g/dL (14.0-18.0); Immature Granulocytes # (auto) 0.03 K/uL (0.00-0.02); Immature Granulocytes % (auto) 0.3 %; Lymphocytes # (auto) 0.97 K/uL (1.2-3.4); Lymphocytes % (auto) 8.3 %; Mean Corpuscular Hemoglobin 31.7 pg (25-34); Mean Corpuscular Hgb Conc 33.9 g/dL (32-36); Mean Corpuscular Volume 93.3 fL (80-100); Mean Platelet Volume 9.4 fL (7.4-10.4); Monocytes # (auto) 0.82 K/uL (0.11-0.59); Neutrophils # (auto) 9.88 K/uL (1.4-6.5); Neutrophils % (auto) 84.1 %; Platelet Count 151 K/uL (130-400); RDW Coefficient of Variation 13.6 % (11.5-14.5); Red Blood Count 3.57 M/uL (4.7-6.1); White Blood Count 11.73 K/uL (4.8-10.8)
[2020-04-18 04:56] LABS: INR 1.3 (0.9-1.1); Partial Thromboplastin Ratio 1.4; Partial Thromboplastin Time 37.9 Seconds (21.0-31.0); Prothrombin Time 13.2 Seconds (9.0-12.0)
[2020-04-18 05:05] LABS: Albumin Level 2.7 gm/dl (3.4-5.0); BUN Creatinine Ratio 22.7 (10-20); Calcium 7.9 mg/dl (8.5-10.1); Creatinine Clr Calc Pharmacy 27.6 ml/min; Est GFR (African American) 31.3; Potassium 4.2 mmol/L (3.5-5.1)
[2020-04-18 05:07] LABS: Albumin Globulin Ratio 0.8 (0.9-2); Bilirubin,Total 0.6 mg/dl (0.2-1); Globulin 3.4 gm/dl (2.5-4.0); Phosphorus 3.1 mg/dl (2.5-4.9); Total Protein 6.1 gm/dl (6.4-8.2)
--- NOTE | 2020-04-18 07:53 | XRay Report ---
XR chest 1V portable HISTORY: fever, ?developing pneumonia COMPARISON: Chest 04/17/2020. FINDINGS: The endotracheal tube and nasogastric tubes have been removed. A right jugular external pac emaker wire is noted. This remains unchanged in position. The heart is top normal in size. Mild centr al pulmonary basilar congestion without overt edema. No pleural effusions. No pneumothorax. No focal lung consolidations to suggest pneumonia. IMPRESSION: Mild central pulmonary vascular congestion without overt edema. Endotracheal tube and nasogastric tub es have been removed. ACT 112: Negative or not required by law. Electronically signed by: Manolo Adamson M.D. 04/18/2020 7:51 AM
[2020-04-18] MEDS: DOPAMINE / D5W 400 MG/250 ML BAG IV SCH (08:28)
[2020-04-18] MEDS: HEPARIN SOD 5,000 UNIT/0.5 ML VIAL SQ SCH ×2 (08:56→20:52)
--- NOTE | 2020-04-18 09:17 | Hospitalist Progress Note ---
Date of Service April 18, 2020 Assessment & Plan (1) Complete heart block: Temporary pacemaker placed by Dr Villegas on evening of admission. NPO for pacemaker this afternoon Lyme IgM and IgG negative --> discussed with resident team regarding initiating empiric doxy for possible early Lyme. They will further discuss during morning rounds. Temp 39.2C overnight, currently 37.6C Anaplasmosis PCR pending Repeat BioFire negative (2) Acute respiratory failure: Intubated for airway protection in the ER. Now extubated and stable on NC O2. Initial CXR without pneumonia or edema Repeat CXR with mild cental pulmonary vascular congestion without overt edema 98% on 3L NC currently Pacemaker today as above (3) Hypertension: Holding home meds. He remains on low-dose dopamine infusion BP 126/45 (4) SIRS (systemic inflammatory response syndrome): etiology uncertain. COVID-19 neg. lyme neg. anaplasmosis smear neg. blood cx's from admission neg. cxr w/o pneumonia. u/a not suggestive of UTI. Repeat CXR without pneumonia in light of prolonged camping trip this summer -- Anaplasmosis DNA pending Of note, could possibly still could have early Lyme despite neg Lyme ab's?? To be discussed at morning rounds for strong consideration of empiric doxy for both tickborne illnesses. Also discussed repeat COVID test --> overnight team did repeat a BioFire, which was negative. Would consider repeat send-out test for confirmation Repeat BCx pending for temp as above On Cefepime empirically (5) Hypercholesterolemia: holding statin for now (6) Acute kidney injury: Cr 2.13 today, about the same as 2.18 on yesterday's labs Cr was 1.2 in 2018 but we have no other values over the subsequent 2-years uncertain of baseline in light of SIRS and complete heart block this still may represent FELIPA AM bmp supportive care (7) DVT prophylaxis: heparin SC 5000 BID Admission and Anticipated Discharge Date Admission Date: April 17, 2020 Subjective Patient evaluated this morning. States they did a "repeat COVID", which was later confirmed with resident as BioFire, which was negative. He states he feels he has taken a turn since last night and is feeling much better. No further chills, chest pain, reported shortness of breath, abdominal pain, nausea at this time. He states "I almost feel as good as I did before I got sick". He plans for pacemaker this afternoon. Review of Systems Review of Systems: All systems reviewed & are unremarkable except as noted in HPI & below Physical Exam Constitutional: well developed and well nourished; no acute distress and no altered mental status ENMT: external ear and nose normal, oropharynx normal Neck: normal visual inspection Respiratory: normal respiratory effort, lungs clear to auscultation Cardiovascular: Rate/Rhythm: regular rate and regular rhythm Heart Sounds: normal S1 and normal S2; no murmur Vessels: posterior tibial pulses present and dorsalis pedis pulses present; no JVD Extremities: no edema right IJ temp pacer in place; art line right arm Gastrointestinal (Abdomen): normal bowel sounds, soft, nontender, no hepatosplenomegaly Musculoskeletal: Head/Neck/Chest: normocephalic and head atraumatic move all extremities Skin: no rashes, warm and dry Psychiatric: A+Ox3, euthymic affect Lymphatic: no cervical or axillary lymphadenopathy Results & Data Results & Data ([facility]) Vital Signs (Past 12 Hours) Vital Signs Temp Pulse Resp BP Pulse Ox Pulse Ox 04/18/20 06:30 37.6 C H 85 25 H 98 04/18/20 06:00 37.8 C H 85 25 H 126/45 L 97 04/18/20 05:30 38.1 C H 94 H 26 H 96 04/18/20 05:00 38.4 C H 82 26 H 139/50 L 95 04/18/20 04:30 38.8 C H 79 26 H 94 04/18/20 04:00 39.1 C H 79 26 H 112/36 L 93 04/18/20 03:30 39.2 C H 58 L 24 93 04/18/20 03:00 39.1 C H 60 31 H 125/45 L 98 04/18/20 02:30 39.0 C H 67 28 H 93 04/18/20 02:00 38.8 C H 60 28 H 144/49 H 96 04/18/20 01:30 38.7 C H 61 24 98 04/18/20 01:08 95 04/18/20 01:00 38.6 C H 73 26 H 138/49 L 99 04/18/20 00:30 38.6 C H 65 28 H 99 09/03/20 00:00 38.4 C H 68 24 140/45 L 97 04/17/20 23:30 38.4 C H 67 21 98 04/17/20 23:00 38.3 C H 62 24 141/47 H 100 04/17/20 22:30 38.3 C H 57 L 26 H 99 04/17/20 22:00 38.4 C H 59 L 22 121/37 L 99 04/17/20 21:30 38.6 C H 55 L 18 97 Laboratory Results 04/18/20 04/18/20 04/18/20 Range/Units 04:30 04:30 04:30 WBC (4.8-10.8) K/uL RBC (4.7-6.1) M/uL Hgb (14.0-18.0) g/dL POC Hgb (14.0-18.0) g/dl Hct (42-52) % POC Hct (42-52) % MCV (80-100) fL MCH (25-34) pg MCHC (32-36) g/dL RDW Std Deviation (36.4-46.3) fL RDW Coeff of Mame (11.5-14.5) % Plt Count (130-400) K/uL MPV (7.4-10.4) fL Immature Gran % (Auto) % Neut % (Auto) % Lymph % (Auto) % [place] % (Auto) % Eos % (Auto) % Baso % (Auto) % Neut # (Auto) (1.4-6.5) K/uL Lymph # (Auto) (1.2-3.4) K/uL [place] # (Auto) (0.11-0.59) K/uL Eos # (Auto) (0-0.5) K/uL Baso # (Auto) (0-0.2) K/uL Immature Gran # (Auto) (0.00-0.02) K/uL PT 13.2 H (9.0-12.0) Seconds INR 1.3 H (0.9-1.1) APTT 37.9 H (21.0-31.0) Seconds PTT Ratio 1.4 POC pH (7.35-7.45) POC pCO2 (35-46) mmHg POC pO2 (80-95) mmHg POC HCO3 (19-24) lester/L POC Total CO2 (24-31) mmol/L POC Base Excess (-9-1.8) lester/L POC ABG O2 Sat (90-95) % POC Sodium (135-144) mmol/L Sodium 138 (136-145) mmol/L POC Potassium (3.3-5.0) mmol/L Potassium 4.2 (3.5-5.1) mmol/L Chloride 110 H (98-107) mmol/L Carbon Dioxide 21 (21-32) mmol/L Anion Gap 7.0 (3-11) BUN 48 H (7-18) mg/dl Creatinine 2.13 H (0.6-1.4) mg/dl Est Cr Clr Drug Dosing 27.6 ml/min Est GFR ( Amer) 31.3 Est GFR (Non-Af Amer) 27.0 BUN/Creatinine Ratio 22.7 H (10-20) Glucose 130 H (70-99) mg/dl POC Glucose (70-99) mg/dl Calcium 7.9 L (8.5-10.1) mg/dl Phosphorus 3.1 (2.5-4.9) mg/dl Magnesium 2.0 (1.8-2.4) mg/dl Total Bilirubin 0.6 (0.2-1) mg/dl AST 34 (15-37) U/L ALT 38 (12-78) U/L Alkaline Phosphatase 50 (45-117) U/L Troponin I (0-0.045) ng/ml Total Protein 6.1 L (6.4-8.2) gm/dl Albumin 2.7 L (3.4-5.0) gm/dl Globulin 3.4 (2.5-4.0) gm/dl Albumin/Globulin Ratio 0.8 L (0.9-2) Adenovirus (PCR) (NotDetected) Anaplasma Smear A. phagocytophilum DNA Pending B. pertussis DNA (PCR) (NotDetected) B.parapertussis DNA PCR (NotDetected) C. pneumoniae DNA (PCR) (NotDetected) Coronavirus OC43 (PCR) (NotDetected) Coronavirus HKU1 (PCR) (NotDetected) Coronavirus 229E (PCR) (NotDetected) COVID-19 PCR (NotDetected) Coronavirus NL63 (PCR) (NotDetected) Human Metapneumovir PCR (NotDetected) Influenza Type A (PCR) (NotDetected) Influenza Type B (PCR) (NotDetected) M. pneumoniae (PCR) (NotDetected) Parainfluenza 1 (PCR) (NotDetected) Parainfluenza 2 (PCR) (NotDetected) Parainfluenza 3 (PCR) (NotDetected) Parainfluenza 4 (PCR) (NotDetected) RSV (PCR) (NotDetected) Entero/Rhino (PCR) (NotDetected) 04/18/20 04/17/20 04/17/20 Range/Units 04:30 21:39 19:15 WBC 11.73 H (4.8-10.8) K/uL RBC 3.57 L (4.7-6.1) M/uL Hgb 11.3 L (14.0-18.0) g/dL POC Hgb (14.0-18.0) g/dl Hct 33.3 L (42-52) % POC Hct (42-52) % MCV 93.3 (80-100) fL MCH 31.7 (25-34) pg MCHC 33.9 (32-36) g/dL RDW Std Deviation 47.0 H (36.4-46.3) fL RDW Coeff of Mame 13.6 (11.5-14.5) % Plt Count 151 (130-400) K/uL MPV 9.4 (7.4-10.4) fL Immature Gran % (Auto) 0.3 % Neut % (Auto) 84.1 % Lymph % (Auto) 8.3 % [place] % (Auto) 7.0 % Eos % (Auto) 0.0 % Baso % (Auto) 0.3 % Neut # (Auto) 9.88 H (1.4-6.5) K/uL Lymph # (Auto) 0.97 L (1.2-3.4) K/uL [place] # (Auto) 0.82 H (0.11-0.59) K/uL Eos # (Auto) 0.00 (0-0.5) K/uL Baso # (Auto) 0.03 (0-0.2) K/uL Immature Gran # (Auto) 0.03 H (0.00-0.02) K/uL PT (9.0-12.0) Seconds INR (0.9-1.1) APTT (21.0-31.0) Seconds PTT Ratio POC pH (7.35-7.45) POC pCO2 (35-46) mmHg POC pO2 (80-95) mmHg POC HCO3 (19-24) lester/L POC Total CO2 (24-31) mmol/L POC Base Excess (-9-1.8) lester/L POC ABG O2 Sat (90-95) % POC Sodium (135-144) mmol/L Sodium (136-145) mmol/L POC Potassium (3.3-5.0) mmol/L Potassium (3.5-5.1) mmol/L Chloride (98-107) mmol/L Carbon Dioxide (21-32) mmol/L Anion Gap (3-11) BUN (7-18) mg/dl Creatinine (0.6-1.4) mg/dl Est Cr Clr Drug Dosing ml/min Est GFR ( Amer) Est GFR (Non-Af Amer) BUN/Creatinine Ratio (10-20) Glucose (70-99) mg/dl POC Glucose 139 H (70-99) mg/dl Calcium (8.5-10.1) mg/dl Phosphorus (2.5-4.9) mg/dl Magnesium (1.8-2.4) mg/dl Total Bilirubin (0.2-1) mg/dl AST (15-37) U/L ALT (12-78) U/L Alkaline Phosphatase (45-117) U/L Troponin I (0-0.045) ng/ml Total Protein (6.4-8.2) gm/dl Albumin (3.4-5.0) gm/dl Globulin (2.5-4.0) gm/dl Albumin/Globulin Ratio (0.9-2) Adenovirus (PCR) Not Detected (NotDetected) Anaplasma Smear A. phagocytophilum DNA B. pertussis DNA (PCR) Not Detected (NotDetected) B.parapertussis DNA PCR Not Detected (NotDetected) C. pneumoniae DNA (PCR) Not Detected (NotDetected) Coronavirus OC43 (PCR) Not Detected (NotDetected) Coronavirus HKU1 (PCR) Not Detected (NotDetected) Coronavirus 229E (PCR) Not Detected (NotDetected) COVID-19 PCR Not Detected (NotDetected) Coronavirus NL63 (PCR) Not Detected (NotDetected) Human Metapneumovir PCR Not Detected (NotDetected) Influenza Type A (PCR) Not Detected (NotDetected) Influenza Type B (PCR) Not Detected (NotDetected) M. pneumoniae (PCR) Not Detected (NotDetected) Parainfluenza 1 (PCR) Not Detected (NotDetected) Parainfluenza 2 (PCR) Not Detected (NotDetected) Parainfluenza 3 (PCR) Not Detected (NotDetected) Parainfluenza 4 (PCR) Not Detected (NotDetected) RSV (PCR) Not Detected (NotDetected) Entero/Rhino (PCR) Not Detected (NotDetected) 04/17/20 04/17/20 04/17/20 Range/Units 17:06 09:05 08:58 WBC (4.8-10.8) K/uL RBC (4.7-6.1) M/uL Hgb (14.0-18.0) g/dL POC Hgb (14.0-18.0) g/dl Hct (42-52) % POC Hct (42-52) % MCV (80-100) fL MCH (25-34) pg MCHC (32-36) g/dL RDW Std Deviation (36.4-46.3) fL RDW Coeff of Mame (11.5-14.5) % Plt Count (130-400) K/uL MPV (7.4-10.4) fL Immature Gran % (Auto) % Neut % (Auto) % Lymph % (Auto) % [place] % (Auto) % Eos % (Auto) % Baso % (Auto) % Neut # (Auto) (1.4-6.5) K/uL Lymph # (Auto) (1.2-3.4) K/uL [place] # (Auto) (0.11-0.59) K/uL Eos # (Auto) (0-0.5) K/uL Baso # (Auto) (0-0.2) K/uL Immature Gran # (Auto) (0.00-0.02) K/uL PT (9.0-12.0) Seconds INR (0.9-1.1) APTT (21.0-31.0) Seconds PTT Ratio POC pH (7.35-7.45) POC pCO2 (35-46) mmHg POC pO2 (80-95) mmHg POC HCO3 (19-24) lester/L POC Total CO2 (24-31) mmol/L POC Base Excess (-9-1.8) lester/L POC ABG O2 Sat (90-95) % POC Sodium (135-144) mmol/L Sodium (136-145) mmol/L POC Potassium (3.3-5.0) mmol/L Potassium (3.5-5.1) mmol/L Chloride (98-107) mmol/L Carbon Dioxide (21-32) mmol/L Anion Gap (3-11) BUN (7-18) mg/dl Creatinine (0.6-1.4) mg/dl Est Cr Clr Drug Dosing ml/min Est GFR ( Amer) Est GFR (Non-Af Amer) BUN/Creatinine Ratio (10-20) Glucose (70-99) mg/dl POC Glucose (70-99) mg/dl Calcium (8.5-10.1) mg/dl Phosphorus (2.5-4.9) mg/dl Magnesium (1.8-2.4) mg/dl Total Bilirubin (0.2-1) mg/dl AST (15-37) U/L ALT (12-78) U/L Alkaline Phosphatase (45-117) U/L Troponin I 0.442 H* 0.662 H* (0-0.045) ng/ml Total Protein (6.4-8.2) gm/dl Albumin (3.4-5.0) gm/dl Globulin (2.5-4.0) gm/dl Albumin/Globulin Ratio (0.9-2) Adenovirus (PCR) (NotDetected) Anaplasma Smear See Comment A. phagocytophilum DNA B. pertussis DNA (PCR) (NotDetected) B.parapertussis DNA PCR (NotDetected) C. pneumoniae DNA (PCR) (NotDetected) Coronavirus OC43 (PCR) (NotDetected) Coronavirus HKU1 (PCR) (NotDetected) Coronavirus 229E (PCR) (NotDetected) COVID-19 PCR (NotDetected) Coronavirus NL63 (PCR) (NotDetected) Human Metapneumovir PCR (NotDetected) Influenza Type A (PCR) (NotDetected) Influenza Type B (PCR) (NotDetected) M. pneumoniae (PCR) (NotDetected) Parainfluenza 1 (PCR) (NotDetected) Parainfluenza 2 (PCR) (NotDetected) Parainfluenza 3 (PCR) (NotDetected) Parainfluenza 4 (PCR) (NotDetected) RSV (PCR) (NotDetected) Entero/Rhino (PCR) (NotDetected) 04/16/20 Range/Units 23:50 WBC (4.8-10.8) K/uL RBC (4.7-6.1) M/uL Hgb (14.0-18.0) g/dL POC Hgb 13.3 L (14.0-18.0) g/dl Hct (42-52) % POC Hct 39 L (42-52) % MCV (80-100) fL MCH (25-34) pg MCHC (32-36) g/dL RDW Std Deviation (36.4-46.3) fL RDW Coeff of Mame (11.5-14.5) % Plt Count (130-400) K/uL MPV (7.4-10.4) fL Immature Gran % (Auto) % Neut % (Auto) % Lymph % (Auto) % [place] % (Auto) % Eos % (Auto) % Baso % (Auto) % Neut # (Auto) (1.4-6.5) K/uL Lymph # (Auto) (1.2-3.4) K/uL [place] # (Auto) (0.11-0.59) K/uL Eos # (Auto) (0-0.5) K/uL Baso # (Auto) (0-0.2) K/uL Immature Gran # (Auto) (0.00-0.02) K/uL PT (9.0-12.0) Seconds INR (0.9-1.1) APTT (21.0-31.0) Seconds PTT Ratio POC pH 7.27 L (7.35-7.45) POC pCO2 44 (35-46) mmHg POC pO2 282 H (80-95) mmHg POC HCO3 20 (19-24) lester/L POC Total CO2 22 L (24-31) mmol/L POC Base Excess -7.0 (-9-1.8) lester/L POC ABG O2 Sat 100.0 H (90-95) % POC Sodium 139 (135-144) mmol/L Sodium (136-145) mmol/L POC Potassium 5.0 (3.3-5.0) mmol/L Potassium (3.5-5.1) mmol/L Chloride (98-107) mmol/L Carbon Dioxide (21-32) mmol/L Anion Gap (3-11) BUN (7-18) mg/dl Creatinine (0.6-1.4) mg/dl Est Cr Clr Drug Dosing ml/min Est GFR ( Amer) Est GFR (Non-Af Amer) BUN/Creatinine Ratio (10-20) Glucose (70-99) mg/dl POC Glucose (70-99) mg/dl Calcium (8.5-10.1) mg/dl Phosphorus (2.5-4.9) mg/dl Magnesium (1.8-2.4) mg/dl Total Bilirubin (0.2-1) mg/dl AST (15-37) U/L ALT (12-78) U/L Alkaline Phosphatase (45-117) U/L Troponin I (0-0.045) ng/ml Total Protein (6.4-8.2) gm/dl Albumin (3.4-5.0) gm/dl Globulin (2.5-4.0) gm/dl Albumin/Globulin Ratio (0.9-2) Adenovirus (PCR) (NotDetected) Anaplasma Smear A. phagocytophilum DNA B. pertussis DNA (PCR) (NotDetected) B.parapertussis DNA PCR (NotDetected) C. pneumoniae DNA (PCR) (NotDetected) Coronavirus OC43 (PCR) (NotDetected) Coronavirus HKU1 (PCR) (NotDetected) Coronavirus 229E (PCR) (NotDetected) COVID-19 PCR (NotDetected) Coronavirus NL63 (PCR) (NotDetected) Human Metapneumovir PCR (NotDetected) Influenza Type A (PCR) (NotDetected) Influenza Type B (PCR) (NotDetected) M. pneumoniae (PCR) (NotDetected) Parainfluenza 1 (PCR) (NotDetected) Parainfluenza 2 (PCR) (NotDetected) Parainfluenza 3 (PCR) (NotDetected) Parainfluenza 4 (PCR) (NotDetected) RSV (PCR) (NotDetected) Entero/Rhino (PCR) (NotDetected) Diagnostic Findings CXR IMPRESSION: Mild central pulmonary vascular congestion without overt edema. Endotracheal tube and nasogastric tubes have been removed. PG Care Time/CCT Total # of Minutes Spent Total Time Spent with Patient: Total time spent is greater than 50% in coordination of care (as documented) at patient's floor/unit and/or counseling patient: Coding Level of Care Code 61385 Subseq Hosp Care Lvl 1 Diagnoses Complete heart block I44.2 Acute respiratory failure J96.00 Respiratory failure complication: unspecified whether with hypoxia or hypercapnia Hypertension I10 Hypertension type: essential hypertension SIRS (systemic inflammatory response syndrome) R65.10 Hypercholesterolemia E78.00 Acute kidney injury N17.9 DVT prophylaxis Z29.9 (1) Acute respiratory failure Respiratory failure complication: unspecified whether with hypoxia or hypercapnia Qualified Code(s): J96.00 - Acute respiratory failure, unspecified whether with hypoxia or hypercapnia (2) Hypertension Hypertension type: essential hypertension Qualified Code(s): I10 - Essential (primary) hypertension
--- NOTE | 2020-04-18 09:32 | Critical Care Progress Note ---
Date of Service April 18, 2020 Assessment & Plan (1) Complete heart block: Reason Critically Ill: 85-year-old male presents with complete heart block, s/p Neuro: - CAM ICU negative Cardiac: - Complete heart block-status post transvenous pacer, current settings: Rate 80, 0.5 mA -A-line for continuous blood pressure monitoring -Currently hemodynamically stable, not requiring vasopressors -Troponin negative, will continue to trend -Cardiology consulted, will follow up recs -Follow-up echo in a.m. -Continuous monitor on telemetry Respiratory: - Acute respiratory failure with hypoxiapatient in the ED intubated as he was obtunded -Patient does show hypoxia on PO2, weaning vent as tolerated, will trend ABGs -Chest x-ray with pulmonary congestion -Questionable aspiration pneumonitis as patient did lose consciousness with agonal breathing in route to the emergency department without protected airway per report, and now presents with fever -No history of pulmonary disease -will hold on diuresis for now -Continuous monitoring on pulse ox GI: - Heart healthy RENAL/LYTES: - Acute kidney injury superimposed on CKD -likely prerenal/ATN injury given symptomatic bradycardia/hypotension -Creatinine 2.13 with 1.34 baseline -Careful IV fluid resuscitation as patient has pulmonary congestion, and suspicious heart failure -Continue to trend with routine BMPs : - continue to monitor output ENDO: - No history diabetes or thyroid disease HEME: - H&H stable, - Continue to monitor ID: -Treating as presumed community-acquired pneumonia versus potentially early undetectable Lyme -Patient febrile and hypoxic, concern for possible aspiration from earlier event -No leukocytosis, UA negative, lactate negative -Blood cultures negative at 24 hours, pro Steven 3.08, Lyme negative -MRSA negative -Started on Doxy 200 mg today, with continuation of 100 mg twice daily for total course of antibiotics for 14 days; also started on Rocephin 2g once a day for 48 hours. LINES/IV ACCESS: - PIVx2, A-line, Steel DVT PROPHYLAXIS: - SQ heparin (2) Respiratory failure with hypoxia: (3) Hypertension: (4) Hypercholesterolemia with endogenous hyperglyceridemia: Admission and Anticipated Discharge Date Admission Date: April 17, 2020 Supervising Physician Co-Signing Physician Notes Dr. Del Castillo was resident physician during care of patient. I separately evaluated patient for parry portions of the history and the exam. I was present during the critical portion of medical decision making, and I discussed the case with the resident. I generally agree with the findings and plan. Patient had continued febrile episodes. We have repeated the blood cultures, yesterday he was given a 24-hour dose of cefepime, while antibiotics were discontinued, the antibiotics have been initiated and in a timeframe that has covered the patient for effective continuous therapy, we will consider the patient to be on day 2 of effective antibiotic therapy. Out of possible locations for infection given the oxygen requirement I will consider this to be a community-acquired pneumonia and treat accordingly. Patient remains critica lly ill as he is unable to undergo permanent pacemaker placement at this time. Subjective Overnight patient continued to be intermittently febrile, ultimately requiring 2 doses of IV Tylenol. During this time patient did not feel febrile, chills, sweats, nauseous, fatigue, abdominal pain. Additional blood cultures were obtained at this time, and patient was started on antibiotics. Since then patient has continued to become intermittently febrile up to 39.2 overnight. Review of Systems Review of Systems: All systems reviewed & are unremarkable except as noted in Subjective Physical Exam Constitutional: WD/WN, vitals as above Eyes: PERRL, conjunctivae normal, anicteric sclerae Neck: trachea midline, no thyromegaly Respiratory: normal respiratory effort, lungs clear to auscultation Cardiovascular: Rate/Rhythm: regular rate and regular rhythm Heart Sounds: no click, no gallop and no murmur Vessels: no JVD Gastrointestinal (Abdomen): normal bowel sounds, soft, nontender, no hepatosplenomegaly Musculoskeletal: no cyanosis or clubbing, extremities motor strength 5/5 Skin: no rashes, warm and dry Neurologic: PERRL, EOMI, accommodation nl, no face palsy, no dysarthria Psychiatric: A+Ox3, euthymic affect Lymphatic: no cervical lymphadenopathy Results & Data Results & Data ([facility]) Vital Signs (Past 12 Hours) Vital Signs Temp Pulse Resp BP Pulse Ox Pulse Ox 04/18/20 09:00 37.5 C 96 H 26 H 172/69 H 100 04/18/20 08:01 37.5 C 88 26 H 153/65 H 98 04/18/20 07:00 37.5 C 89 24 142/59 H 98 04/18/20 06:30 37.6 C H 85 25 H 98 04/18/20 06:00 37.8 C H 85 25 H 126/45 L 97 04/18/20 05:30 38.1 C H 94 H 26 H 96 04/18/20 05:00 38.4 C H 82 26 H 139/50 L 95 04/18/20 04:30 38.8 C H 79 26 H 94 04/18/20 04:00 39.1 C H 79 26 H 112/36 L 93 04/18/20 03:30 39.2 C H 58 L 24 93 04/18/20 03:00 39.1 C H 60 31 H 125/45 L 98 04/18/20 02:30 39.0 C H 67 28 H 93 04/18/20 02:00 38.8 C H 60 28 H 144/49 H 96 04/18/20 01:30 38.7 C H 61 24 98 04/18/20 01:08 95 04/18/20 01:00 38.6 C H 73 26 H 138/49 L 99 04/18/20 00:30 38.6 C H 65 28 H 99 04/18/20 00:00 38.4 C H 68 24 140/45 L 97 04/17/20 23:30 38.4 C H 67 21 98 04/17/20 23:00 38.3 C H 62 24 141/47 H 100 04/17/20 22:30 38.3 C H 57 L 26 H 99 04/17/20 22:00 38.4 C H 59 L 22 121/37 L 99 Critical Care Time Critical Care Time: Yes Total Critical Care Time: 40 I have personally spent 40 minutes of critical care time in the direct management of this patient. This is a life/limb threatening event. This includes time spent evaluating patient, direct bedside care, chart review, placing orders, interpretation of diagnostic studies, discussion with con sultants, patient, and/or family members regarding treatment decisions, as well as other required patient management activities. This time is exclusive of all separately billable procedures, and teaching time and separate from and in addition to any other critical care service time. Resident Activity Tracking Resident Involvement: Resident Care Provided Care Provided: Adult Hospital Medicine (Critical Care) (1) Hypertension Hypertension type: essential hypertension Qualified Code(s): I10 - Essential (primary) hypertension
--- NOTE | 2020-04-18 09:51 | Billing Data ---
Date of Service April 18, 2020 Coding Level of Care Code Critical Care 1st - mins
--- NOTE | 2020-04-18 09:53 | Cardiology Progress Note ---
Date of Service April 18, 2020 Assessment & Plan (1) Complete heart block: -temporary transvenous pacemaker placed at time of admission. -presented with symptomatic complete heart block and respiratory failure. -fever continues. -started on cefepime. -COVID-19 negative. -Lyme disease negative. -Dr. Smith will postpone the permanent pacemaker until tomorrow.. (2) Hypertension: -would restart losartan and hydrochlorothiazide -would hold metoprolol until permanent pacemaker is placed. (3) Hypercholesterolemia: -can restart simvastatin. Admission and Anticipated Discharge Date Admission Date: April 17, 2020 Subjective The patient is resting comfortably in bed without complaints of chest pain or dyspnea. He did notice fever last evening. Physical Exam Physical Exam: In general this is a well-developed well-nourished white male in no acute distress. HEENT exam is negative. Neck reveals normal carotid upstrokes without bruits. No jugular venous distension. Temporary pacemaker wire in the right neck. There is no thyromegaly. Cardiovascular exam reveals a regular rhythm with a normal S1 and S2. No murmurs, S3, or S4 are noted. Lungs are clear without rales, rhonchi, or wheezes. Abdomen is soft without bruits. Diastasis recti is noted. Extremities reveal intact radial artery and posterior tibial pulses bilaterally. There is no peripheral edema. Results & Data ([facility]) Vital Signs (Past 12 Hours) Vital Signs Temp Pulse Resp BP Pulse Ox Pulse Ox 04/18/20 09:00 37.5 C 96 H 26 H 172/69 H 100 04/18/20 08:01 37.5 C 88 26 H 153/65 H 98 04/18/20 07:00 37.5 C 89 24 142/59 H 98 04/18/20 06:30 37.6 C H 85 25 H 98 04/18/20 06:00 37.8 C H 85 25 H 126/45 L 97 04/18/20 05:30 38.1 C H 94 H 26 H 96 04/18/20 05:00 38.4 C H 82 26 H 139/50 L 95 04/18/20 04:30 38.8 C H 79 26 H 94 04/18/20 04:00 39.1 C H 79 26 H 112/36 L 93 04/18/20 03:30 39.2 C H 58 L 24 93 04/18/20 03:00 39.1 C H 60 31 H 125/45 L 98 04/18/20 02:30 39.0 C H 67 28 H 93 04/18/20 02:00 38.8 C H 60 28 H 144/49 H 96 04/18/20 01:30 38.7 C H 61 24 98 04/18/20 01:08 95 04/18/20 01:00 38.6 C H 73 26 H 138/49 L 99 04/18/20 00:30 38.6 C H 65 28 H 99 04/18/20 00:00 38.4 C H 68 24 140/45 L 97 04/17/20 23:30 38.4 C H 67 21 98 04/17/20 23:00 38.3 C H 62 24 141/47 H 100 04/17/20 22:30 38.3 C H 57 L 26 H 99 04/17/20 22:00 38.4 C H 59 L 22 121/37 L 99 PG Care Time/CCT Total # of Minutes Spent Total Time Spent with Patient: Total time spent is greater than 50% in coordination of care (as documented) at patient's floor/unit and/or counseling patient: Coding Level of Care Code 13489 Subseq Hosp Care Lvl 3 Diagnoses Complete heart block I44.2 Hypertension I10 Hypertension type: essential hypertension Hypercholesterolemia E78.00 (1) Hypertension Hypertension type: essential hypertension Qualified Code(s): I10 - Essential (primary) hypertension
[2020-04-18] MEDS ORDERED: ASPIRIN 81 MG ECTAB PO ONE (10:15)
[2020-04-18] MEDS ORDERED: hydroCHLOROthiazide 25 MG TAB PO ONE (10:15)
[2020-04-18] MEDS ORDERED: DOXYCYCLINE HYCLATE 100 MG CAP PO ONE (10:30)
[2020-04-18] MEDS ORDERED: AMLODIPINE BESYLATE 5 MG TAB PO ONE (13:00)
[2020-04-18] MEDS ORDERED: POLYETHYLENE (MIRALAX) 17 GM PACK PO PRN (17:17)
[2020-04-18] MEDS: cefTRIAXone SODIUM 2,000 MG in DEXTROSE 5% 50 ML IV SCH (20:48)
[2020-04-18] MEDS ORDERED: HydrALAZINE HCL 20 MG/ML VIAL IV STA (21:55)
[2020-04-19] MEDS: ACETAMINOPHEN 1,000 MG/100 ML VIAL IV PRN (01:00)
[2020-04-19 04:34] LABS: Basophils # (auto) 0.02 K/uL (0-0.2); Basophils % (auto) 0.2 %; Eosinophils # (auto) 0.02 K/uL (0-0.5); Eosinophils % (auto) 0.2 %; Hematocrit (blood only) 31.7 % (42-52); Hemoglobin 10.9 g/dL (14.0-18.0); Immature Granulocytes # (auto) 0.02 K/uL (0.00-0.02); Immature Granulocytes % (auto) 0.2 %; Lymphocytes % (auto) 10.8 %; Mean Corpuscular Hemoglobin 31.8 pg (25-34); Mean Corpuscular Hgb Conc 34.4 g/dL (32-36); Mean Corpuscular Volume 92.4 fL (80-100); Mean Platelet Volume 10.4 fL (7.4-10.4); Monocytes # (auto) 0.63 K/uL (0.11-0.59); Monocytes % (auto) 6.8 %; Neutrophils # (auto) 7.57 K/uL (1.4-6.5); Neutrophils % (auto) 81.8 %; Platelet Count 134 K/uL (130-400); RDW Coefficient of Variation 13.6 % (11.5-14.5); RDW Standard Deviation 45.9 fL (36.4-46.3); Red Blood Count 3.43 M/uL (4.7-6.1); White Blood Count 9.26 K/uL (4.8-10.8)
[2020-04-19 04:47] LABS: INR 1.2 (0.9-1.1); Partial Thromboplastin Ratio 1.3; Partial Thromboplastin Time 37.6 Seconds (21.0-31.0); Prothrombin Time 12.2 Seconds (9.0-12.0)
[2020-04-19 04:52] LABS: Albumin Level 2.6 gm/dl (3.4-5.0); BUN Creatinine Ratio 24.1 (10-20); Calcium 8.2 mg/dl (8.5-10.1); Creatinine Clr Calc Pharmacy 38.7 ml/min; Est GFR (African American) 47.1; Est GFR (Non-African American) 40.6; Potassium 3.8 mmol/L (3.5-5.1)
[2020-04-19 04:55] LABS: Albumin Globulin Ratio 0.7 (0.9-2); Bilirubin,Total 0.7 mg/dl (0.2-1); Globulin 3.7 gm/dl (2.5-4.0); Total Protein 6.3 gm/dl (6.4-8.2)
--- NOTE | 2020-04-19 06:31 | Critical Care Progress Note ---
Date of Service April 19, 2020 Assessment & Plan (1) Complete heart block: Reason Critically Ill: 85-year-old male presents with complete heart block, s/p Neuro: - CAM ICU negative Cardiac: - Complete heart block-status post transvenous pacer, current settings: Rate 50, 5.0 mA -Currently hemodynamically stable, not requiring vasopressors -Troponin peaked at 0.662 on 04/17 with subsequent downtrend -Cardiology consulted, will follow up recs -Follow-up echo in a.m. -Continuous monitor on telemetry - Systolic hypertension: -Overnight peak systolic pressures up to 204 -Received 10 mg IV hydralazine, with improvement -holding home losartan in the setting of acute kidney injury Respiratory: - Acute respiratory failure with hypoxia -Chest x-ray with pulmonary congestion -No history of pulmonary disease -Maintaining saturations appropriately on room air -Continuous monitoring on pulse ox GI: - Heart healthy RENAL/LYTES: - Acute kidney injury superimposed on chronic kidney disease -likely prerenal/ATN injury given symptomatic bradycardia/hypotension -Creatinine 1.52 with 1.34 baseline -Careful IV fluid resuscitation as patient has pulmonary congestion, and suspicious heart failure -Continue to trend with daily BMPs : - continue to monitor output ENDO: - No history diabetes or thyroid disease HEME: - H&H stable, - Continue to monitor ID: - Treating as presumed community-acquired pneumonia versus potentially early undetectable Lyme Disease -Patient febrile and hypoxic, concern for possible aspiration from earlier event -No leukocytosis, UA negative, lactate negative -Blood cultures negative at 24 hours, pro Steven 3.08, Lyme negative -MRSA negative -Started on Doxy 200 mg today, with continuation of 100 mg twice daily for total course of antibiotics for 14 days; also started on Rocephin 2g once a day for 48 hours. LINES/IV ACCESS: - PIVx2, A-line, Steel DVT PROPHYLAXIS: - SQ heparin Admission and Anticipated Discharge Date Admission Date: April 17, 2020 Supervising Physician Co-Signing Physician Notes Dr. Del Castillo was resident physician during care of patient. I separately evaluated patient for parry portions of the history and the exam. I was present during the critical portion of medical decision making, and I discussed the case with the resident. I generally agree with the findings and plan. Patient was discussed in multidisciplinary rounds. Continued antibiotics for presumptive early Lyme disease of a 14-day course this would also cover community-acquired pneumonia which would be a 7-day course. We will continue Rocephin for another 24 hours giving a total of 72 hours of Rocephin. Awaiting permanent pacemaker placement. I am not overly concerned of the patient's hypertension, he did respond to hydralazine. It will be difficult given the patient's acute kidney injury and pre-existing conduction disease to treat the blood pressure with any other medication besides hydralazine. 1725 clinical update patient has had successful placement of the pacemaker, stable for downgrade out of ICU. Subjective Overnight patient had a T-max of 38.1, receiving 1 dose of IV Tylenol. Early in evening patient's blood pressure continued to rise with systolic readings up to 204, during this time patient denied headache, shortness of breath, dizziness, changes in vision, lightheadedness; received 10mg of IV hydralazine, with improvement in blood pressure subsequently remainder of night readings up to 160 systolic. Denies feelings of fevers, chills, sweats, nausea, vomiting, chest pain, shortness of breath. Review of Systems Review of Systems: All systems reviewed & are unremarkable except as noted in Subjective Physical Exam Constitutional: WD/WN, vitals as above Eyes: PERRL, conjunctivae normal, anicteric sclerae Neck: trachea midline, no thyromegaly Respiratory: normal respiratory effort, lungs clear to auscultation Cardiovascular: Rate/Rhythm: regular rate and regular rhythm Heart Sounds: no click, no gallop and no murmur Vessels: no JVD Gastrointestinal (Abdomen): normal bowel sounds, soft, nontender, no hepatosplenomegaly Musculoskeletal: no cyanosis or clubbing, extremities motor strength 5/5 Skin: no rashes, warm and dry Neurologic: PERRL, EOMI, accommodation nl, no face palsy, no dysarthria Psychiatric: A+Ox3, euthymic affect Lymphatic: no cervical lymphadenopathy Results & Data Results & Data ([facility]) Vital Signs (Past 12 Hours) Vital Signs Temp Pulse Resp BP Pulse Ox Pulse Ox 04/19/20 05:00 37.3 C 76 25 H 136/56 L 94 04/19/20 04:30 37.3 C 78 26 H 93 04/19/20 04:00 37.3 C 76 23 129/54 L 93 04/19/20 03:30 37.5 C 82 25 H 93 04/19/20 03:00 37.7 C H 81 26 H 127/46 L 92 04/19/20 02:30 37.9 C H 83 26 H 92 04/19/20 02:00 38.1 C H 85 26 H 123/47 L 92 04/19/20 01:30 38.1 C H 91 H 26 H 94 04/19/20 01:00 38.1 C H 95 H 25 H 165/74 H 96 94 04/19/20 00:30 38.1 C H 87 27 H 94 04/19/20 00:00 38.0 C H 95 H 25 H 153/64 H 96 04/18/20 23:30 37.9 C H 103 H 26 H 95 04/18/20 23:00 37.6 C H 103 H 26 H 180/74 H 96 04/18/20 22:30 37.6 C H 98 H 20 95 04/18/20 22:00 37.5 C 89 25 H 181/73 H 95 04/18/20 21:30 37.3 C 100 H 25 H 94 04/18/20 21:00 37.2 C 96 H 25 H 184/75 H 92 04/18/20 20:30 37.1 C 93 H 23 94 04/18/20 20:00 37.0 C 89 24 167/76 H 93 04/18/20 19:30 37.0 C 86 21 95 04/18/20 19:00 37.0 C 84 25 H 166/73 H 96 Laboratory Results 04/19/20 04/19/20 04/19/20 Range/Units 04:11 04:11 04:11 WBC 9.26 (4.8-10.8) K/uL RBC 3.43 L (4.7-6.1) M/uL Hgb 10.9 L (14.0-18.0) g/dL Hct 31.7 L (42-52) % MCV 92.4 (80-100) fL MCH 31.8 (25-34) pg MCHC 34.4 (32-36) g/dL RDW Std Deviation 45.9 (36.4-46.3) fL RDW Coeff of Mame 13.6 (11.5-14.5) % Plt Count 134 (130-400) K/uL MPV 10.4 (7.4-10.4) fL Immature Gran % (Auto) 0.2 % Neut % (Auto) 81.8 % Lymph % (Auto) 10.8 % Williams % (Auto) 6.8 % Eos % (Auto) 0.2 % Baso % (Auto) 0.2 % Neut # (Auto) 7.57 H (1.4-6.5) K/uL Lymph # (Auto) 1.00 L (1.2-3.4) K/uL Williams # (Auto) 0.63 H (0.11-0.59) K/uL Eos # (Auto) 0.02 (0-0.5) K/uL Baso # (Auto) 0.02 (0-0.2) K/uL Immature Gran # (Auto) 0.02 (0.00-0.02) K/uL PT 12.2 H (9.0-12.0) Seconds INR 1.2 H (0.9-1.1) APTT 37.6 H (21.0-31.0) Seconds PTT Ratio 1.3 Sodium 139 (136-145) mmol/L Potassium 3.8 (3.5-5.1) mmol/L Chloride 109 H (98-107) mmol/L Carbon Dioxide 23 (21-32) mmol/L Anion Gap 7.0 (3-11) BUN 37 H (7-18) mg/dl Creatinine 1.52 H D (0.6-1.4) mg/dl Est Cr Clr Drug Dosing 38.7 ml/min Est GFR ( Amer) 47.1 Est GFR (Non-Af Amer) 40.6 BUN/Creatinine Ratio 24.1 H (10-20) Glucose 101 H (70-99) mg/dl POC Glucose (70-99) mg/dl Calcium 8.2 L (8.5-10.1) mg/dl Magnesium 2.0 (1.8-2.4) mg/dl Total Bilirubin 0.7 (0.2-1) mg/dl AST 27 (15-37) U/L ALT 32 (12-78) U/L Alkaline Phosphatase 55 (45-117) U/L Total Protein 6.3 L (6.4-8.2) gm/dl Albumin 2.6 L (3.4-5.0) gm/dl Globulin 3.7 (2.5-4.0) gm/dl Albumin/Globulin Ratio 0.7 L (0.9-2) 04/18/20 04/18/20 04/18/20 Range/Units 21:45 16:07 11:23 WBC (4.8-10.8) K/uL RBC (4.7-6.1) M/uL Hgb (14.0-18.0) g/dL Hct (42-52) % MCV (80-100) fL MCH (25-34) pg MCHC (32-36) g/dL RDW Std Deviation (36.4-46.3) fL RDW Coeff of Mame (11.5-14.5) % Plt Count (130-400) K/uL MPV (7.4-10.4) fL Immature Gran % (Auto) % Neut % (Auto) % Lymph % (Auto) % Williams % (Auto) % Eos % (Auto) % Baso % (Auto) % Neut # (Auto) (1.4-6.5) K/uL Lymph # (Auto) (1.2-3.4) K/uL Williams # (Auto) (0.11-0.59) K/uL Eos # (Auto) (0-0.5) K/uL Baso # (Auto) (0-0.2) K/uL Immature Gran # (Auto) (0.00-0.02) K/uL PT (9.0-12.0) Seconds INR (0.9-1.1) APTT (21.0-31.0) Seconds PTT Ratio Sodium (136-145) mmol/L Potassium (3.5-5.1) mmol/L Chloride (98-107) mmol/L Carbon Dioxide (21-32) mmol/L Anion Gap (3-11) BUN (7-18) mg/dl Creatinine (0.6-1.4) mg/dl Est Cr Clr Drug Dosing ml/min Est GFR ( Amer) Est GFR (Non-Af Amer) BUN/Creatinine Ratio (10-20) Glucose (70-99) mg/dl POC Glucose 110 H 124 H 100 H (70-99) mg/dl Calcium (8.5-10.1) mg/dl Magnesium (1.8-2.4) mg/dl Total Bilirubin (0.2-1) mg/dl AST (15-37) U/L ALT (12-78) U/L Alkaline Phosphatase (45-117) U/L Total Protein (6.4-8.2) gm/dl Albumin (3.4-5.0) gm/dl Globulin (2.5-4.0) gm/dl Albumin/Globulin Ratio (0.9-2) Medications Administered Current Inpatient Medications Aspirin (Aspirin 81 Mg Ectab) 81 mg PO QAM [facility] Stop: 05/19/20 08:59 Doxycycline Hyclate (Doxycycline Hyclate 100 Mg Cap) 100 mg PO BID [facility] Stop: 05/02/20 21:30 Heparin Sodium (Porcine) (Heparin Sod 5,000 Unit/0.5 Ml Vial) 5,000 units SQ Q12 [place] Stop: 05/17/20 08:59 Last Admin: 04/18/20 20:52 Dose: 5,000 units Documented by: Hydrochlorothiazide (Hydrochlorothiazide 25 Mg Tab) 12.5 mg PO QAM [facility] Stop: 05/19/20 08:59 Acetaminophen (Ofirmev) 1,000 mg in 100 mls @ 400 mls/hr IV Q8H PRN PRN Reason: Fever Stop: 04/20/20 01:24 Last Infusion: 04/19/20 01:18 Dose: Infused Documented by: Ceftriaxone Sodium 2,000 mg/ (Dextrose) 70 mls @ 140 mls/hr IV Q24H [facility] Stop: 04/20/20 18:59 Last Infusion: 04/18/20 21:20 Dose: Infused Documented by: Losartan Potassium (Losartan Potassium 50 Mg Tab) 50 mg PO QAM [facility] Stop: 05/19/20 08:59 Polyethylene Glycol (Polyethylene (Miralax) 17 Gm Pack) 17 gm PO DAILY PRN PRN Reason: Constipation Stop: 05/18/20 17:16 Critical Care Time Critical Care Time: Yes Total Critical Care Time: 40 I have personally spent 40 minutes of critical care time in the direct management of this patient. This is a life/limb threatening event. This in cludes time spent evaluating patient, direct bedside care, chart review, placing orders, interpretation of diagnostic studies, discussion with consultants, patient, and/or family members regarding treatment decisions, as well as other required patient management activities. This time is exclusive of all separately billable procedures, and teaching time and separate from and in addition to any other critical care service time. Resident Activity Tracking Resident Involvement: Resident Care Provided Care Provided: Adult [facility] Medicine (Critical Care)
--- NOTE | 2020-04-19 06:36 | Electrocardiogram Report ---
Test Reason : Blood Pressure : / mmHG Vent. Rate : 090 BPM Atrial Rate : 090 BPM P-R Int : 184 ms QRS Dur : 118 ms QT Int : 412 ms P-R-T Axes : 068 005 192 degrees QTc Int : 504 ms Normal sinus rhythm Left ventricular hypertrophy with QRS widening and repolarization abnormality Prolonged QT Abnormal ECG When compared with ECG of 17-APR-2020 03:48, Right bundle branch block is no longer Present Criteria for Inferior infarct are no longer Present T wave inversion now evident in Lateral leads Confirmed by Jeb Cross ([id number]) on 04/19/2020 6:35:27 AM Referred By: REFERRED SELF Confirmed By:Jeb Cross
[2020-04-19] MEDS: ASPIRIN 81 MG ECTAB PO SCH (08:19)
[2020-04-19] MEDS: DOXYCYCLINE HYCLATE 100 MG CAP PO SCH ×2 (08:20→20:51)
[2020-04-19] MEDS: hydroCHLOROthiazide 25 MG TAB PO SCH (08:20)
[2020-04-19] MEDS ORDERED: LOSARTAN POTASSIUM 50 MG TAB PO SCH (09:00)
--- NOTE | 2020-04-19 09:32 | Billing Data ---
Date of Service April 19, 2020 Coding Level of Care Code Critical Care 1st - mins
--- NOTE | 2020-04-19 09:43 | Billing Data ---
Date of Service April 19, 2020 Coding Level of Care Code Critical Care 1st - mins
[2020-04-19] MEDS: HEPARIN SOD 5,000 UNIT/0.5 ML VIAL SQ SCH ×2 (10:54→21:29)
--- NOTE | 2020-04-19 11:55 | Pre Anesthesia Assessment ---
Date of Service April 19, 2020 Pre Sedation Assessment Vital Signs Temp Pulse Resp BP Pulse Ox Pulse Ox 04/19/20 11:00 37.4 C 98 H 25 H 174/85 H 96 04/19/20 10:00 37.6 C H 88 27 H 167/72 H 96 04/19/20 09:00 37.4 C 87 27 H 178/89 H 96 04/19/20 08:00 37.3 C 94 H 20 176/80 H 98 04/19/20 07:00 37.2 C 90 21 166/70 H 94 04/19/20 06:00 37.3 C 83 22 145/65 H 94 04/19/20 05:30 37.3 C 84 23 93 04/19/20 05:00 37.3 C 76 25 H 136/56 L 94 04/19/20 04:30 37.3 C 78 26 H 93 04/19/20 04:00 37.3 C 76 23 129/54 L 93 04/19/20 03:30 37.5 C 82 25 H 93 04/19/20 03:00 37.7 C H 81 26 H 127/46 L 92 04/19/20 02:30 37.9 C H 83 26 H 92 04/19/20 02:00 38.1 C H 85 26 H 123/47 L 92 04/19/20 01:30 38.1 C H 91 H 26 H 94 04/19/20 01:00 38.1 C H 95 H 25 H 165/74 H 96 94 04/19/20 00:30 38.1 C H 87 27 H 94 04/19/20 00:00 38.0 C H 95 H 25 H 153/64 H 96 04/18/20 23:30 37.9 C H 103 H 26 H 95 04/18/20 23:00 37.6 C H 103 H 26 H 180/74 H 96 04/18/20 22:30 37.6 C H 98 H 20 95 04/18/20 22:00 37.5 C 89 25 H 181/73 H 95 04/18/20 21:30 37.3 C 100 H 25 H 94 04/18/20 21:00 37.2 C 96 H 25 H 184/75 H 92 04/18/20 20:30 37.1 C 93 H 23 94 04/18/20 20:00 37.0 C 89 24 167/76 H 93 04/18/20 19:30 37.0 C 86 21 95 04/18/20 19:00 37.0 C 84 25 H 166/73 H 96 04/18/20 16:00 37.0 C 90 28 H 173/77 H 98 04/18/20 15:00 37.2 C 81 25 H 152/63 H 98 04/18/20 14:00 37.6 C H 83 25 H 157/61 H 97 04/18/20 13:00 37.9 C H 88 31 H 150/62 H 97 04/18/20 12:01 38.0 C H 101 H 22 172/87 H 98 Cardiovascular + regular rate Respiratory + respiratory effort normal Pre-Sedation Airway Assessment Smoking Status: Former smoker Hx Sleep Apnea: No Hx Difficult Intubation: No Short, Thick Neck: No Thyromental Distance: > or= 3.5 Finger Breadths Oral Cavity: + WNL Mallampati Class: III ASA: ASA3 Procedure Planning Contraindications for Sedation: none Current Medications Reviewed: Yes Notes The planned sedation has been discussed with the patient. Informed Consent was obtained. I have identified the patient, determined the appropriateness of sedation and have assessed the patient immediately prior to the procedure. All medicine(s) and interventions are by my order.
[2020-04-19] MEDS ORDERED: BUPIVACAINE 0.25% 30 ML VIAL ONE (12:13)
[2020-04-19] MEDS ORDERED: BACITRACIN INJ 50,000 UNIT VIAL ONE (12:13)
[2020-04-19] MEDS ORDERED: LIDOCAINE HCL 1% 20 ML VIAL ONE (12:13)
[2020-04-19] MEDS ORDERED: CLINDAMYCIN PHOS 300 MG/2 ML VIAL ONE (12:21)
--- NOTE | 2020-04-19 12:21 | Hospitalist Progress Note ---
Date of Service April 19, 2020 Assessment & Plan (1) Complete heart block: Temporary pacemaker placed by Dr Villegas on evening of admission. NPO for pacemaker this afternoon Lyme IgM and IgG negative --> receiving doxy to cover tick borne illnesses Anaplasmosis PCR pending, peripheral smear without inclusion bodies Repeat BioFire negative (2) Acute respiratory failure: Intubated for airway protection in the ER. Now extubated and stable on RA. Initial CXR without pneumonia or edema Repeat CXR with mild central pulmonary vascular congestion without overt edema Pacemaker today as above (3) Hypertension: Continue losartan, hctz dopamine infusion dc'd (4) SIRS (systemic inflammatory response syndrome): etiology uncertain. COVID-19 neg. lyme neg. anaplasmosis smear neg. blood cx's from admission neg. cxr w/o pneumonia. u/a not suggestive of UTI. Repeat CXR without pneumonia in light of prolonged camping trip this summer -- Anaplasmosis DNA pending Of note, could possibly still could have early Lyme despite neg Lyme ab's?? To be discussed at morning rounds for strong consideration of empiric doxy for both tickborne illnesses. Also discussed repeat COVID test --> overnight team did repeat a BioFire, which was negative. Repeat BCx pending for temp as above Continue ceftriaxone (5) Hypercholesterolemia: holding statin for now (6) Acute kidney injury: Cr peaked at 2.18 today, now trending down 1.5 today Trend daily bmps (7) DVT prophylaxis: heparin SC 5000 BID Admission and Anticipated Discharge Date Admission Date: April 17, 2020 Subjective Patient was febrile overnight. Currently reports he feels that he is almost at his baseline. ROS Constitutional: no chills, aches, sweats or fever Respiratory: no sob,cough, sputum, or wheezing Cardiac: no chest pain, palpitations, edema, orthopnea or lightheadedness GI: no abdominal pain, nausea, vomiting, diarrhea or constipation : no dysuria or hesitancy Extremities: no joint pain or weakness Skin: no rash All other systems reviewed and negative Physical Exam Physical Exam: General: no distress Eyes: normal inspection, PERLL Respiratory: chest non tender, clear to auscultation, normal breath sounds, no respiratory distress, no accessory muscle use Cardiac: regular rate and rhythm, no rub or gallop, no murmur, no edema, no jvd GI/: active bowel sounds, no abd pain or tenderness, soft, non distended Extremities: normal range of motion, normal strength, non tender Neuro/Psych: alert and oriented x 3, normal mood and affect Skin: normal color, dry Results & Data Results & Data ([facility]) Vital Signs (Past 12 Hours) Vital Signs Temp Pulse Resp BP Pulse Ox Pulse Ox 04/19/20 11:00 37.4 C 98 H 25 H 174/85 H 96 04/19/20 10:00 37.6 C H 88 27 H 167/72 H 96 04/19/20 09:00 37.4 C 87 27 H 178/89 H 96 04/19/20 08:00 37.3 C 94 H 20 176/80 H 98 04/19/20 07:00 37.2 C 90 21 166/70 H 94 04/19/20 06:00 37.3 C 83 22 145/65 H 94 04/19/20 05:30 37.3 C 84 23 93 04/19/20 05:00 37.3 C 76 25 H 136/56 L 94 04/19/20 04:30 37.3 C 78 26 H 93 04/19/20 04:00 37.3 C 76 23 129/54 L 93 04/19/20 03:30 37.5 C 82 25 H 93 04/19/20 03:00 37.7 C H 81 26 H 127/46 L 92 04/19/20 02:30 37.9 C H 83 26 H 92 04/19/20 02:00 38.1 C H 85 26 H 123/47 L 92 04/19/20 01:30 38.1 C H 91 H 26 H 94 04/19/20 01:00 38.1 C H 95 H 25 H 165/74 H 96 94 04/19/20 00:30 38.1 C H 87 27 H 94 PG Care Time/CCT Total # of Minutes Spent Total Time Spent with Patient: Total time spent is greater than 50% in coordination of care (as documented) at patient's floor/unit and/or counseling patient: Coding Level of Care Code 91283 Subseq Hosp Care Lvl 3 Diagnoses Complete heart block I44.2 Acute respiratory failure J96.00 Respiratory failure complication: unspecified whether with hypoxia or hypercapnia Hypertension I10 Hypertension type: essential hypertension SIRS (systemic inflammatory response syndrome) R65.10 Hypercholesterolemia E78.00 Acute kidney injury N17.9 DVT prophylaxis Z29.9 (1) Acute respiratory failure Respiratory failure complication: unspecified whether with hypoxia or hypercapnia Qualified Code(s): J96.00 - Acute respiratory failure, unspecified whether with hypoxia or hypercapnia (2) Hypertension Hypertension type: essential hypertension Qualified Code(s): I10 - Essential (primary) hypertension
[2020-04-19] MEDS ORDERED: CEFAZOLIN 250 MG/ML 1 GM VIAL ONE (12:24)
[2020-04-19] MEDS ORDERED: fentaNYL citrate 100 MCG/2 ML VIAL ONE ×2 (12:24→13:25)
[2020-04-19] MEDS ORDERED: MIDAZOLAM HCL 5 MG/ML 1 ML VIAL ONE ×2 (12:24→13:46)
[2020-04-19] MEDS ORDERED: ACETAMINOPHEN 325 MG TAB PO PRN (15:12)
--- NOTE | 2020-04-19 15:14 | Post Anesthesia Assessment ---
Date of Service April 19, 2020 Post Sedation Assessment Vital Signs Temp Pulse Resp BP Pulse Ox Pulse Ox 04/19/20 12:00 91 H 27 H 167/77 H 96 04/19/20 11:00 37.4 C 98 H 25 H 174/85 H 96 04/19/20 10:00 37.6 C H 88 27 H 167/72 H 96 04/19/20 09:00 37.4 C 87 27 H 178/89 H 96 04/19/20 08:00 37.3 C 94 H 20 176/80 H 98 04/19/20 07:00 37.2 C 90 21 166/70 H 94 04/19/20 06:00 37.3 C 83 22 145/65 H 94 04/19/20 05:30 37.3 C 84 23 93 04/19/20 05:00 37.3 C 76 25 H 136/56 L 94 04/19/20 04:30 37.3 C 78 26 H 93 04/19/20 04:00 37.3 C 76 23 129/54 L 93 04/19/20 03:30 37.5 C 82 25 H 93 04/19/20 03:00 37.7 C H 81 26 H 127/46 L 92 04/19/20 02:30 37.9 C H 83 26 H 92 04/19/20 02:00 38.1 C H 85 26 H 123/47 L 92 04/19/20 01:30 38.1 C H 91 H 26 H 94 04/19/20 01:00 38.1 C H 95 H 25 H 165/74 H 96 94 04/19/20 00:30 38.1 C H 87 27 H 94 04/19/20 00:00 38.0 C H 95 H 25 H 153/64 H 96 04/18/20 23:30 37.9 C H 103 H 26 H 95 04/18/20 23:00 37.6 C H 103 H 26 H 180/74 H 96 04/18/20 22:30 37.6 C H 98 H 20 95 04/18/20 22:00 37.5 C 89 25 H 181/73 H 95 04/18/20 21:30 37.3 C 100 H 25 H 94 04/18/20 21:00 37.2 C 96 H 25 H 184/75 H 92 04/18/20 20:30 37.1 C 93 H 23 94 04/18/20 20:00 37.0 C 89 24 167/76 H 93 04/18/20 19:30 37.0 C 86 21 95 04/18/20 19:00 37.0 C 84 25 H 166/73 H 96 04/18/20 16:00 37.0 C 90 28 H 173/77 H 98 Recovery Score Activity: Moves 4 extremities Respiration: Deep Breath/Cough Circulation: +/-20% PreAnes Value Consciousness: Fully Awake Oxygen Saturation: > 92% On Room Air Discharge Sedation Level of Care: Fast Track Phase II Post Sedation Plan On clinical assessment, the patient appears to have tolerated the sedation without complications. Patient is recovering as anticipated. Patient will continue to be monitored by nursing and may be discharged when sedation discharge criteria are met per below protocol. Upon Completions of procedure up to 15 minutes continue every 5 minute vital signs and the P.A.R. score; then discharge to a Phase I or Fast Track to Phase II per the following guidelines: * Discharge Patient to appropriate Phase II area if PAR is 8 or greater or return to pre- procedure baseline. The post - procedure orders will be as directed. * If PAR score is less than 8 or not return to pre-procedure baseline then patient will follow Phase I monitoring till PAR is reached for Phase II. The Phase I may be done in procedure room or may call to secure a Phase I area. * If naloxone or flumazenil are used for reversal, hold in Phase I for continued monitoring from when last reversal dose was given for a minimum of 60 minutes or longer pending the nurse and/or physician discretion of patient condition before discharge to Phase II. Please call the Sedation Physician to re-evaluate and complete post-note for discharge to Phase II area. Do NOT discharge from procedure sedation or Phase 1 until post- sedation evaluation note is complete by procedure /sedation MD Sedation Discharge Instructions to be given to the patient at discharge to home.
--- NOTE | 2020-04-19 15:17 | Electrophysiology Report ---
Date of Service April 19, 2020 Electrophysiology Procedure Electrophysiology Procedure Report Procedure performed: Implantation of dual-chamber permanent pacemaker Staff rim turning machine operator: Miguel Angel Smith MD Indication: The patient is an 85-year-old gentleman who presented to the [facility] room in complete heart block and cardiogenic shock. Patient did require temporary transvenous pacing. At this point the patient was referred for implantation of a permanent dual-chamber pacer due to symptomatic AV node dysfunction. Dual-chamber device is selected as patient is currently in sinus rhythm and wished to maintain AV synchrony. Procedure in detail: The patient was informed of the risks benefits and alternatives to the intended procedure and she wished to proceed. He was taken to the electrophysiology suite in a fasting state. A preoperative antibiotic had been administered. The patient was monitored electrocardiographically throughout today's procedure and conscious sedation was administered per protocol. The left upper pectoral area is prepped and draped in usual sterile fashion. This area was anesthetized using subcutaneous administration of a xylocaine solution. An incision was made at this site and carried down to the prepectoralis fascia using sharp dissection. Electrocautery was also employed for dissection as well as for hemostasis. A device pocket was fashioned tissues above the pectoralis muscle. Subsequent to this maneuver the left axillary vein was accessed using modified Seldinger technique. Sheaths were placed over guidewires at this site and used to facilitate passage of the pacing leads to the respective chambers under fluoroscopic guidance. Initially, a guiding catheter was employed in an attempt to deliver a lead to the intraventricular septum in the vicinity of the left bundle branch block. However, selective left bundle branch capture could not be obtained despite multiple attempts and additional efforts were abandoned. Standard transvenous leads were then implanted. This included right atrial and right ventricular leads. Adequate sensing and threshold parameters were obtained prior to Active fixation of the leads to the endocardial surface. The proximal portion leads were then sutured the prepectoral fascia using nonabsorbable suture. The device pocket was irrigated with antibiotic solution. The leads were then attached to the device. The device and leads were then placed in the pocket and pocket was closed in 3 layers of absorbable suture. Steri-Strips and sterile dressing were applied. The device was tested noninvasively prior to conclusion the procedure. The patient tolerated procedure well there no immediate complications. Equipment used: New pulse generator: [employer]. Model number: [id number] serial number [id number] Right atrial lead: [employer]. Model number: 5076 serial number [id number] Right ventricular lead: Flight Operations Manager [employer]. Model number: 5076 serial number [id number] Measured data: Right atrial lead: P waves measure 1.6 mV. Pacing threshold 1.5 V at 0.4 ms with a pacing pains of 437 ohms Right ventricular lead: R waves measure 9.8 mV. Pacing threshold 0.5 V at 0.4 ms with a pacing impedance of 380 ohms Impression: Successful implantation of dual-chamber permanent pacemaker MNPG Electrophysiology codes Pacing Procedure 1: Pacin Insert/Replace Pacer A & V PG Moderate Sedation Codes Moderate Sedation Codes Procedure 1: Sedation/Anesthesia: 25676 Mod Sedation by the same physician;Init15 Min Child Age 5 & Up Procedure 2: Sedation/Anesthesia: 25630 Mod Sedation by the same physician; Ea [id number] Minutes
[2020-04-19] MEDS: SIMVASTATIN 40 MG TAB PO SCH (20:50)
[2020-04-19] MEDS: cefTRIAXone SODIUM 2,000 MG in DEXTROSE 5% 50 ML IV SCH (20:51)
[2020-04-20 08:01] LABS: Hematocrit (blood only) 37.4 % (42-52); Hemoglobin 12.7 g/dL (14.0-18.0); Mean Corpuscular Hemoglobin 31.8 pg (25-34); Mean Corpuscular Volume 93.5 fL (80-100); Mean Platelet Volume 9.7 fL (7.4-10.4); Platelet Count 200 K/uL (130-400); RDW Coefficient of Variation 13.5 % (11.5-14.5); RDW Standard Deviation 46.4 fL (36.4-46.3); White Blood Count 9.88 K/uL (4.8-10.8)
[2020-04-20 08:10] LABS: Partial Thromboplastin Ratio 1.2; Partial Thromboplastin Time 32.7 Seconds (21.0-31.0)
[2020-04-20] MEDS: CEROVITE ADV FORMULA TAB PO SCH (08:16)
[2020-04-20] MEDS: ASPIRIN 81 MG ECTAB PO SCH (08:16)
[2020-04-20] MEDS: TOCOPHERYL, DL-ALPHA 400 UNITS CAP PO SCH (08:17)
[2020-04-20] MEDS: DOXYCYCLINE HYCLATE 100 MG CAP PO SCH ×2 (08:17→20:08)
[2020-04-20] MEDS: HEPARIN SOD 5,000 UNIT/0.5 ML VIAL SQ SCH ×2 (08:17→20:08)
[2020-04-20 08:44] LABS: Albumin Globulin Ratio 0.7 (0.9-2); BUN Creatinine Ratio 25.4 (10-20); Bilirubin,Total 0.7 mg/dl (0.2-1); Calcium 9.5 mg/dl (8.5-10.1); Creatinine Clr Calc Pharmacy 35.4 ml/min; Est GFR (African American) 47.1; Est GFR (Non-African American) 40.6; Globulin 4.6 gm/dl (2.5-4.0); Total Protein 7.6 gm/dl (6.4-8.2)
[2020-04-20] MEDS ORDERED: hydroCHLOROthiazide 25 MG TAB PO SCH (09:00)
--- NOTE | 2020-04-20 09:16 | XRay Report ---
XR chest 2V PA/lateral HISTORY: 85 years-old Male EXACT TIME ORDERED Evaluate for pneumothorax and l status post placement of a left subclavian pacer COMPARISON: Chest radiograph 04/18/2020 TECHNIQUE: PA and lateral views of the chest FINDINGS: Left subclavian dual lead pacer has been placed. The leads appear intact. No postprocedural pneumotho rax. Cardiac silhouette is mildly enlarged. There is mild pulmonary vascular congestion which has mil dly improved. Trace pleural effusions with minimal bibasilar atelectasis. Calcified plaque of the tho racic aortic arch. Degenerative changes of the shoulders and spine. IMPRESSION: 1. Status post placement of a left subclavian pacer. No postprocedural pneumothorax. 2. Mildly improved pulmonary vascular congestion. 3. Trace pleural effusions. ACT 112: Negative or not required by law. The above report was generated using voice recognition software. It may contain grammatical, syntax o r spelling errors. Electronically signed by: Desmond Saldana M.D. 04/20/2020 9:15 AM
--- NOTE | 2020-04-20 14:48 | Cardiology Progress Note ---
Date of Service April 20, 2020 Assessment & Plan (1) Complete heart block: s/p implant of dual chamber pacemaker. Normal function. No complication. OK for d/c. Would resume metoprolol. Keep wound dry and ster-strip intact until f/u in 1 week. No lifting left arm above shoulder or behind neck for 6 weeks. Admission and Anticipated Discharge Date Admission Date: April 17, 2020 Subjective This morning he is feeling well. Minimal pain at the implant site. Physical Exam Physical Exam: Wound with no hematoma. No drainage. No erythema. Minimal ecchymosis. Results & Data ([facility]) Vital Signs (Past 12 Hours) Vital Signs Temp Pulse Resp BP Pulse Ox 04/20/20 11:50 36.8 C 88 18 157/70 H 96 04/20/20 08:15 119/69 04/20/20 07:11 36.8 C 98 H 18 163/95 H 97 04/20/20 03:47 37.3 C 91 H 18 142/67 H 95 Diagnostic Findings Chest x-ray reveals adequate lead position without PTX Interrogation reveals good function of both leads
--- NOTE | 2020-04-20 15:23 | Hospitalist Progress Note ---
Date of Service April 20, 2020 Assessment & Plan (1) Complete heart block: Temporary pacemaker placed by Dr Villegas on evening of admission. S/p permanent pacer placed 04/19 Per cardiology - resume metoprolol. Keep wound dry and ster-strip intact until f/u in 1 week. No lifting left arm above shoulder or behind neck for 6 weeks. Lyme IgM and IgG negative --> receiving doxy to cover tick borne illnesses Anaplasmosis PCR negative Repeat BioFire negative (2) Acute respiratory failure: Intubated for airway protection in the ER. Extubated 04/18 and stable on RA. Initial CXR without pneumonia or edema Repeat CXR with mild central pulmonary vascular congestion without overt edema (3) Hypertension: Hold losartan, hctz for FELIPA dopamine infusion dc'd Resumed metoprolol per cardiology rec (4) SIRS (systemic inflammatory response syndrome): etiology uncertain. COVID-19 neg. lyme neg. anaplasma dna neg blood cx's from admission neg. cxr w/o pneumonia. u/a not suggestive of UTI. Repeat CXR without pneumonia Of note, could possibly still could have early Lyme despite neg Lyme ab's?? Also discussed repeat COVID test --> overnight team did repeat a BioFire, which was negative. Repeat BCx pending for temp as above Continue ceftriaxone (5) Hypercholesterolemia: holding statin for now (6) Acute kidney injury: Cr peaked at 2.18 now trending down 1.5 for the past two days Baseline appears to be around 1.3 Trend daily bmps Holding losartan and HCTZ for now (7) DVT prophylaxis: heparin SC 5000 BID Dispo: PT/OT, last dose of Rocephin yadira ewing dc tomorrow Admission and Anticipated Discharge Date Admission Date: April 17, 2020 Subjective Mr. Luna is in good spirits and feeling well. He has no complaints today. at bedside. Febrile last evening, no fevers today ROS Constitutional: no chills, aches, sweats or fever Respiratory: no sob,cough, sputum, or wheezing Cardiac: no chest pain, palpitations, edema, orthopnea or lightheadedness GI: no abdominal pain, nausea, vomiting, diarrhea or constipation : no dysuria or hesitancy Extremities: no joint pain or weakness Skin: no rash All other systems reviewed and negative Physical Exam Physical Exam: General: no distress Eyes: normal inspection, PERLL Respiratory: chest non tender, clear to auscultation, normal breath sounds, no respiratory distress, no accessory muscle use Cardiac: regular rate and rhythm, no rub or gallop, no murmur, no edema, no jvd GI/: active bowel sounds, no abd pain or tenderness, soft, non distended Extremities: normal range of motion, normal strength, non tender Neuro/Psych: alert and oriented x 3, normal mood and affect Skin: normal color, dry Results & Data Results & Data ([facility]) Vital Signs (Past 12 Hours) Vital Signs Temp Pulse Resp BP Pulse Ox 04/20/20 11:50 36.8 C 88 18 157/70 H 96 04/20/20 08:15 119/69 04/20/20 07:11 36.8 C 98 H 18 163/95 H 97 04/20/20 03:47 37.3 C 91 H 18 142/67 H 95 PG Care Time/CCT Total # of Minutes Spent Total Time Spent with Patient: Total time spent is greater than 50% in coordination of care (as documented) at patient's floor/unit and/or counseling patient: Coding Level of Care Code 42178 Subseq Hosp Care Lvl 3 Diagnoses Complete heart block I44.2 Acute respiratory failure J96.00 Respiratory failure complication: unspecified whether with hypoxia or hypercapnia Hypertension I10 Hypertension type: essential hypertension SIRS (systemic inflammatory response syndrome) R65.10 Hypercholesterolemia E78.00 Acute kidney injury N17.9 DVT prophylaxis Z29.9 (1) Acute respiratory failure Respiratory failure complication: unspecified whether with hypoxia or hypercapnia Qualified Code(s): J96.00 - Acute respiratory failure, unspecified whether with hypoxia or hypercapnia (2) Hypertension Hypertension type: essential hypertension Qualified Code(s): I10 - Essential (primary) hypertension
[2020-04-20] MEDS: cefTRIAXone SODIUM 2,000 MG in DEXTROSE 5% 50 ML IV SCH (18:37)
[2020-04-20] MEDS: METOPROLOL TARTRATE 50 MG TAB PO SCH (20:07)
[2020-04-20] MEDS: SIMVASTATIN 40 MG TAB PO SCH (20:08)
--- NOTE | 2020-04-21 04:37 | Electrocardiogram Report ---
Test Reason : Blood Pressure : / mmHG Vent. Rate : 092 BPM Atrial Rate : 092 BPM P-R Int : 186 ms QRS Dur : 124 ms QT Int : 416 ms P-R-T Axes : 069 -18 155 degrees QTc Int : 514 ms Sinus rhythm with Premature atrial complexes RSR' or QR pattern in V1 suggests right ventricular conduction delay Minimal voltage criteria for LVH, may be normal variant Abnormal ECG When compared with ECG of 18-APR-2020 06:45, Premature atrial complexes are now Present T wave inversion less evident in Inferior leads Confirmed by Jeb Cross ([id number]) on 04/21/2020 4:37:05 AM Referred By: REFERRED SELF Confirmed By:Jeb Cross
[2020-04-21 06:56] LABS: Hematocrit (blood only) 34.5 % (42-52); Mean Corpuscular Hemoglobin 32.1 pg (25-34); Mean Corpuscular Hgb Conc 34.8 g/dL (32-36); Mean Corpuscular Volume 92.2 fL (80-100); Mean Platelet Volume 9.3 fL (7.4-10.4); Platelet Count 195 K/uL (130-400); RDW Coefficient of Variation 13.5 % (11.5-14.5); RDW Standard Deviation 45.4 fL (36.4-46.3); Red Blood Count 3.74 M/uL (4.7-6.1); White Blood Count 8.89 K/uL (4.8-10.8)
[2020-04-21 07:28] LABS: Albumin Level 2.8 gm/dl (3.4-5.0); BUN Creatinine Ratio 36.1 (10-20); Calcium 8.8 mg/dl (8.5-10.1); Creatinine Clr Calc Pharmacy 45.9 ml/min; Est GFR (African American) 57.9; Potassium 3.6 mmol/L (3.5-5.1)
[2020-04-21 07:31] LABS: Albumin Globulin Ratio 0.7 (0.9-2); Bilirubin,Total 0.5 mg/dl (0.2-1); Total Protein 6.8 gm/dl (6.4-8.2)
[2020-04-21] MEDS: ASPIRIN 81 MG ECTAB PO SCH (07:40)
[2020-04-21] MEDS: CEROVITE ADV FORMULA TAB PO SCH (07:40)
[2020-04-21] MEDS: TOCOPHERYL, DL-ALPHA 400 UNITS CAP PO SCH (07:40)
[2020-04-21] MEDS: METOPROLOL TARTRATE 50 MG TAB PO SCH (07:41)
[2020-04-21] MEDS: DOXYCYCLINE HYCLATE 100 MG CAP PO SCH (07:41)
[2020-04-21] MEDS: HEPARIN SOD 5,000 UNIT/0.5 ML VIAL SQ SCH (07:41)
[2020-04-21] MEDS: hydroCHLOROthiazide 25 MG TAB PO SCH (11:14)
--- NOTE | 2020-04-21 13:30 | Discharge Summary ---
Date of Service April 21, 2020 Admission HPI Per Admitting Provider The patient is a 85-year-old male with a past medical history including hypertension, hyperlipidemia, muscle spasm and dermatitis. Upon presentation to the emergency department, he was found to be in complete heart block, was intubated for airway protection, and a heart alert was called. The patient was taken to the cardiac catheterization lab by Dr. Villegas, and a temporary pacemaker was placed under ultrasound guidance, and the patient was then taken to the ICU for admission. Principal Diagnosis Heart block Discharge Exam Constitutional WD/WN, vitals as above Respiratory normal respiratory effort, lungs clear to auscultation Cardiovascular RRR, no murmur, no edema Gastrointestinal (Abdomen) Inspection/Auscultation: abdomen normal to inspection and normal bowel sounds; abdomen not distended Percussion/Palpation: abdomen soft; abdomen nontender Musculoskeletal no cyanosis or clubbing, extremities motor strength 5/5 Skin no rashes, warm and dry Neurologic moves all extremities and awake Psychiatric A+Ox3, euthymic affect Discharge Data Allergies Allergy/AdvReac Type Severity Reaction Status Date / Time Penicillins Allergy Unknown HIVES Verified 04/16/20 23:06 bee pollen Allergy Unknown Verified 04/16/20 23:06 codeine Allergy Unknown Verified 04/16/20 23:06 oxycodone AdvReac Unknown N&V Verified 04/16/20 23:06 diltiazem AdvReac edema Verified 04/16/20 23:06 Consultations 04/16/20 23:12 Consult Cardiology Stat ED Decision to Admit Stat 04/17/20 01:06 Consult Case Management - Discharge Planning Routine Consult Computer Network And Systems Engineer Routine Procedures Performed Operation Date: 04/16/20 23:00 Actual Procedures s Temporary Transcutaneous Pacing - Scott Villegas MD s Arterial ATP Cath Insertion - Scott Villegas MD p Ins/RemTemporary Transvenous Pacer - Scott Villegas MD s Ultrasound Vascular Access - Scott Villegas MD Operation Date: 04/18/20 13:00 <No data on this case meets the specified criteria> Operation Date: 04/19/20 12:30 Actual Procedures p Pacer with A/V Leads (Dual) - Scott Smith MD s Bundle of his Recording - Scott Smith MD Ordered Studies 04/16/20 23:07 CL Cath Imgs for PACS use only Stat 04/18/20 07:00 EP Lab Images for PACS ONCE 04/19/20 06:45 EP Lab Images for PACS ONCE Hospital Course (1) Complete heart block: Temporary pacemaker placed by Dr Villegas on evening of admission. S/p permanent pacer placed 04/19 Per cardiology - resume metoprolol. Keep wound dry and ster-strip intact until f/u in 1 week. No lifting left arm above shoulder or behind neck for 6 weeks. Lyme IgM and IgG negative --> receiving doxy to cover tick borne illnesses Anaplasmosis PCR negative Repeat BioFire negative (2) Acute respiratory failure: Intubated for airway protection in the ER. Extubated 04/18 and stable on RA. Initial CXR without pneumonia or edema Repeat CXR with mild central pulmonary vascular congestion without overt edema (3) Hypertension: Resume losartan, hctz as FELIPA resolved dopamine infusion dc'd in ICU Resumed metoprolol per cardiology rec (4) SIRS (systemic inflammatory response syndrome): etiology uncertain. COVID-19 neg. lyme neg. anaplasma dna neg blood cx's from admission neg. cxr w/o pneumonia. u/a not suggestive of UTI. Repeat CXR without pneumonia Could consider repeating a Lyme test in a few weeks to see if seroconversion has ocurred. Also discussed repeat COVID test --> overnight team did repeat a BioFire, which was negative. Repeat BCx pending for temp as above Given ceftriaxone x 72 hours per ICU rec (5) Hypercholesterolemia: resum statin (6) Acute kidney injury: Cr peaked at 2.18 now trended down to baseline. BUN still elevated but will resume home losartan and HCTZ. Baseline appears to be around 1.3 Follow with pcp (7) DVT prophylaxis: heparin SC 5000 BID Total Time Total Time Spent Total Time Spent (In Minutes): greater than 30 minutes Discharge Plan Discharge Items Patient Disposition: Home - Self-Care Reason For Visit: HEART BLOCK Discharge Diagnosis: Heart block Activity: Resume your previous activity Lifting: No more than 5 pounds Non-emergency contact: Primary Care Provider Call non-emergency contact if: you have any medication questions and your pain is not controlled Follow-up/Referrals: Riki Barajas MD [Primary Care Provider] - (Follow up in one week ) Diet: Heart Healthy Addtl Attending Provider Instructions: (1) Complete heart block: You had a pacemaker placed on 04/[address] Smith. Keep wound dry and ster-strips intact until follow up in 1 week. No lifting left arm above shoulder or behind neck for 6 weeks. Do not lift more than 5 pounds until cleared by cardiology to do so. If the incision is draining or the area surrounding the incision is becoming increasingly red or painful you should call the cardiologists office. Your lyme test and anaplasmosis tests were negative. However, your presentation was concerning for a tick borne illness so you were started on doxycycline. You will need to complete a total of 14 days of this medication. Your blood cultures were all negative for bacterial infection. Your COVID test was negative as well Doxycycline can cause photosensitivity so please use sunscreen or cover ups and sunglasses when outside until you have finished your course. You should also avoid taking the medication with dairy products. Doxycycline can cause gastrointestinal discomfort and nausea, you can try taking the medication with food to avoid this effect. Do not take bismuth (Pepto-Bismol), calcium, iron, magnesium, zinc, multivitamins with minerals, colestipol, cholestyramine, didanosine, or antacids within 2 hours of this drug.Take with a full glass of water. Do not lie down for at least 30 minutes after taking this drug. (2) Acute respiratory failure: You were intubated and placed on mechanical ventilation when you arrived in the emergency department. You were extubated on 04/18 and your respiratory status has been stable Your chest Xrays did not show any overt pneumonia however the doxycycline and ceftriaxone you received would have covered for pneumonia. (3) Acute kidney injury: Your creatinine (a measure of kidney function) peaked at 2.18. Today it is back to your baseline at 1.28. Please ask your primary care provider if they would like to recheck this in a week or so to ensure stability. Pending Studies at Discharge: No Stand-Alone Forms: My [facility] [place], Smoking Cessation Medications and DC Order Prescriptions: New doxycycline hyclate 100 mg Capsule 100 mg PO BID Qty: 21 RF: 0 aspirin 81 mg Tablet,Delayed Release (Dr/Ec) 81 mg PO QAM Qty: 30 RF: 0 Continued simvastatin 40 mg tablet 40 mg PO HS Qty: 90 RF: 3 metoprolol tartrate 50 mg tablet 50 mg PO BID Qty: 7 RF: 1 hydrochlorothiazide 12.5 mg tablet 12.5 mg PO QAM Qty: 90 RF: 3 losartan 50 mg tablet 50 mg PO QAM Qty: 90 RF: 1 carisoprodol 350 mg tablet 350 mg PO DAILY PRN (Reason: muscle pain) Qty: 30 RF: 0 vitamin E 400 unit Capsule 400 unit PO QAM RF: 0 multivitamin with iron-mineral Tablet 1 tab PO QAM RF: 0 fluocinonide 0.05 % cream 1 applic topical BID PRN (Reason: itching) RF: 0 Discontinued aspirin 325 mg Tablet 325 mg PO DAILY PRN (Reason: Pain) RF: 0 Discharge Orders: Discharge Order (Routine); Ordered 04/21/20 Ordered By: Emperatriz Connors Admission Data Admit Date/Time: 04/17/20 01:06 Attending Provider: Scott Villegas Admit Provider: Jarocho Pagan Primary Care Provider: Riki Barajas Other Providers: Kvng Lebron ; Scott Villegas ; Jarocho Pagan ; Oswaldo Kelly Other Interventions: Discharge Summary Assessment (RN) Last Done: 04/21/20 13:39 Supervising Physician Co-Signing Physician Notes Patient seen and examined on the day of discharge. I agree with the discharge summary by Emperatriz GARCIA. I have reviewed the chart including labs, imaging and plans for discharge. patient feeling much better, he has no fever, his HR has been stable, has not required pacing he is eating well, ambulating around the halls - Complete heart block: treated with transvenous pacemaker on admission he was then treated with dobutamine when BP was low despite pacing he received permanent pacemaker with Dr. Smith on 04/19, tolerated well transferred to PCU on 04/20, remained stable, will d/c to home and follow up with Dr. Smith this week - Fever unclear etiology, working diagnosis is Lyme disease vs pneumonia treated initially with Rocephin Lyme screen negative but he has risks for tick bites as he spent a lot of t krzys[place]tof recently at his camp in the [facility] never had a rash fever resolved with Rocephin will discharge home on extended course of Doxycycline follow up with PCP, overall feeling much better, no further fevers Coding Level of Care Code D/C Day Management >30 mins Diagnoses Complete heart block I44.2 Acute respiratory failure J96.00 Respiratory failure complication: unspecified whether with hypoxia or hypercapnia Hypertension I10 Hypertension type: essential hypertension SIRS (systemic inflammatory response syndrome) R65.10 Hypercholesterolemia E78.00 Acute kidney injury N17.9 DVT prophylaxis Z29.9
== END 2020-04-21 15:04 | disposition home or self-care (01) | DRG 242 ==
LOC: ED 22:34 → CC 23:22 → 1E 04-17 01:06 → 2S 04-19 18:47
PROC: CLB.TTP (2020-04-16 23:00)

== ENCOUNTER 2022-07-14 19:34 | Observation (INO) ==
[2022-07-14 20:00] LABS: Basophils # (auto) 0.05 K/uL (0-0.2); Basophils % (auto) 0.6 %; Eosinophils # (auto) 0.24 K/uL (0-0.50); Eosinophils % (auto) 2.9 %; Hematocrit (blood only) 41.9 % (40.1-51.0); Immature Granulocytes # (auto) 0.02 K/uL (0.00-0.02); Immature Granulocytes % (auto) 0.2 %; Lymphocytes # (auto) 2.46 K/uL (1.2-3.4); Lymphocytes % (auto) 29.2 %; Mean Corpuscular Hgb Conc 33.4 g/dL (32.0-36.0); Mean Corpuscular Volume 95.9 fL (80.0-100.0); Mean Platelet Volume 9.1 fL (9.4-12.4); Monocytes # (auto) 0.67 K/uL (0.24-0.82); Neutrophils # (auto) 4.98 K/uL (1.4-6.5); Neutrophils % (auto) 59.1 %; Platelet Count 265 K/uL (130-400); RDW Coefficient of Variation 12.6 % (11.5-14.5); RDW Standard Deviation 44.7 fL (36.4-46.3); Red Blood Count 4.37 M/uL (4.63-6.08); White Blood Count 8.42 K/ul (4.8-10.8)
[2022-07-14 20:12] LABS: INR 1.1 (0.9-1.1); Partial Thromboplastin Ratio 1.2; Partial Thromboplastin Time 33.2 Seconds (21.0-31.0); Prothrombin Time 11.5 Seconds (9.0-12.0)
[2022-07-14 20:17] LABS: Albumin Globulin Ratio 1.2 (0.9-2); Albumin Level 4.2 gm/dl (3.4-5.0); BUN Creatinine Ratio 17.2 (10-20); Bilirubin,Total 0.4 mg/dl (0.2-1.0); Calcium 10.1 mg/dl (8.5-10.1); Creatinine Clr Calc Pharmacy 35.7 ml/min; Est GFR (African American) 49.1 ml/min; Est GFR (Non-African American) 42.4 ml/min; Globulin 3.5 gm/dl (2.5-4.0); Potassium 4.6 mmol/L (3.5-5.1); Total Protein 7.7 gm/dl (6.0-8.3)
[2022-07-14 20:28] LABS: Appearance Urine Clear (Clear); Bilirubin Urine Negative (Negative); Blood Urine Negative (Negative); Color Urine Yellow; Glucose Urine UA Negative (Negative); Ketones Urine Negative (Negative); Leukocyte Esterase Urine Negative (Negative); Nitrite Urine Negative (Negative); Protein Urine Negative (Negative); Specific Gravity Urine 1.009 (1.000-1.030); Urobilinogen Urine Negative (Negative); pH Urine 7.5 (4.5-7.5)
[2022-07-14] MEDS ORDERED: LABETALOL HCL IV 5 MG/ML 20ML IV STA (23:14)
--- NOTE | 2022-07-14 23:19 | Emergency Department Note ---
Impression & Plan Hypertension, Headache ED Provider Note Provider: Migue Rodriguez MD DATE OF SERVICE: 07/14/2022 CHIEF COMPLAINT: Headache, hypertension HISTORY OF PRESENT ILLNESS: Patient is a 87-year-old gentleman history of paroxysmal atrial flutter, hypertension, heart block with pacemaker, carotid stenosis currently maintained on Eliquis [facility] of a headache and significant hypertension. Patient states his blood pressure is usually well controlled. On losartan and metoprolol as well as hydrochlorothiazide. Patient did take an additional hyd rochlorothiazide. Patient reports he had a bit of a right-sided headache but no new dizziness or numbness or tingling. Denies chest pressure or abdominal symptoms. Follows with [facility] cardiology REVIEW OF SYSTEMS: A total of 10 review of systems was obtained and negative except as stated above in the HPI. PAST MEDICAL HISTORY: As noted above MEDICATIONS: Reviewed patient's home medication SOCIAL HISTORY: PHYSICAL EXAM: GENERAL: alert and oriented in no acute distress on stretcher Head: normocephalic and atraumatic EYES: No injection, discharge or icterus. PERRL NECK: Trachea midline. Supple. ENT: Mucous membranes pink and moist. LUNGS: Airway patent. No retractions. Breath sounds clear with good air entry bilaterally. HEART: Regular rate and rhythm. No chest wall tenderness ABDOMEN: Soft and non-tender, without guarding or rebound. SKIN: Acyanotic, warm, dry, without rashes EXTREMITIES: Without swelling, tenderness or deformity NEUROLOGICAL: No focal deficits. No aphasia. No facial droop or slurred speech. Normal strength and tone in the extremities. Sensation to gross touch normal. Ambulatory. EK bpm normal sinus rhythm without PVC or PAC. No acute ST segment elevation with some slight lateral ST depression and inferior lateral T wave inversions. QTc 479. In comparison to previous from April 19, 2020 fairly similar although some less anterior lead to T wave inversion today. CONTINUOUS CARDIAC MONITORING: was ordered and showed a heart rate of 60s-80s bpm in sinus rhythm with T wave inversions Patient's laboratory studies and imaging reviewed. Differential includes Benign hypertension, hypertensive emergency, cardiovascular pathology, toxicologic, pheochromocytoma, electrolyte abnormality, renal disease, endorgan damage, as well as other pathologies. IMPRESSION/MEDICAL DECISION MAKING: Patient with significant hypertension which she states is atypical for him. Some sharp right-sided headache. States does feel little bit lightheaded with position change. On a blood thinner. No trauma history. No other significant neurological deficits and I doubt a CVA but did complete a CT of the head given the hypertension and the Eliquis usage. Blood work here without significant anemia or leukocytosis. Stable CKD. No significant electrolyte abnormality. Negative urinalysis. No signs of transaminitis. EKG with chronic changes. Has a pacemaker and given some labetalol for increased blood pressure control given the severe elevations. History of carotid stenosis and will to be gentle with dropping his blood pressure. CT of the head without acute bleed or findings for the full CT report as detailed below. Patient's blood pressure did respond to some labetalol. Now in the 170s systolic. Patient still states he feels a bit lightheaded with position change but his headache somewhat improved. Discussed with him and his at bedside the findings. Minimal troponin elevation. Could be chronic but do not have any recent baseline. In shared decision making he wished to stay for observation and better blood pressure control. DIAGNOSIS: Hypertension, headache DISPOSITION: Hospitalist will evaluate Patient was agreeable with this plan. Preliminary Findings Only See Final Report For Complete Findings CT HEAD: No intracranial hemorrhage, mass-effect or midline shift. There is no abnormal extra axial fluid collection. No evidence of acute infarct. Mild periventricular white matter hypodensities are most consistent with chronic microangiopathy. The visualized paranasal sinuses and mastoid air cells are clear. No fracture. Radiologist: Agnes Campuzano MD Study ready at 23:58 and initial results transmitted at 00:17 Past Med/Surg History Medical History Dyslipidemia Gout Helicobacter positive gastritis Herpes zoster Peptic ulcer Respiratory failure with hypoxia Surgical History H/O hernia repair S/P appendectomy S/P T&A (status post tonsillectomy and adenoidectomy) Total knee replacement status Family History Other Coronary heart disease Social History Smoking Status: Former smoker Hx Alcohol Use: No Hx Substance Use: No Preferred Language: Kazakh Communication Ability: Effective marital status: Current Living Situation: Spouse current occupational status: retired Feels Safe at Home: Yes Assistive Devices: Hearing Aid - Bilateral Allergies Allergies Allergy/AdvReac Type Severity Reaction Status Date / Time bee venom protein (honey bee) Allergy Unknown Verified 06/11/22 13:06 hornet venom Allergy Unknown Verified 06/11/22 13:06 Penicillins Allergy Unknown HIVES Verified 06/11/22 13:06 bee pollen Allergy Unknown Verified 06/11/22 13:06 codeine Allergy Unknown Verified 06/11/22 13:06 oxycodone AdvReac Unknown N&V Verified 06/11/22 13:06 diltiazem AdvReac edema Verified 06/11/22 13:06 Home Meds Home Medications Medication Instructions Recorded Confirmed fluocinonide 0.05 % topical cream 1 applic topical BID PRN itching 02/03/20 06/11/22 multivitamin with iron-mineral 1 tab PO QAM 02/03/20 06/11/22 ascorbate calcium (vitamin C) 500 500 mg PO DAILY 06/09/21 06/11/22 mg tablet atorvastatin 80 mg tablet 40 mg PO QPM 06/09/21 06/11/22 carboxymethylcellulose sodium 1 % 1 drp ophthalmic (eye) DAILY PRN 06/09/21 06/11/22 eye gel in a dropperette meclizine 12.5 mg tablet 12.5 mg PO Q8H PRN 06/09/21 06/11/22 vitamins A,C,M-rnsc-[id number] 14,320 2 cap PO DAILY 08/29/21 06/11/22 unit-226 mg-200 unit capsule (PreserVision AREDS) apixaban 2.5 mg tablet (Eliquis) 2.5 mg PO BID 11/20/21 06/11/22 hydrochlorothiazide 12.5 mg tablet 12.5 mg PO DAILY PRN Blood pressure 02/02/22 06/11/22 cholecalciferol (vitamin D3) PO DAILY 02/13/22 06/11/22 losartan 50 mg tablet 25 mg PO QAM 06/11/22 06/11/22 Previous Rx's Medication Instructions Recorded metoprolol tartrate 50 mg tablet 50 mg PO BID #180 tabs 08/30/20 Results & Data (ED) Vital Signs Vital Signs - 24 hr 07/14/22 19:42 07/14/22 23:35 07/14/22 23:04 Temperature 36.6 C Temperature Source Temporal Artery Scan Pulse Rate 88 74 Pulse Rate [Apical] 68 Pulse Rhythm [Apical] Regular Pulse Strength [Apical] Normal Respiratory Rate 18 16 22 Respiratory Effort / Characteristics Non-Labored Spontaneous Spontaneous Respiratory Depth Normal Normal Respiratory Pattern Regular Blood Pressure 236/106 H 205/137 H Blood Pressure [Right Arm] 202/90 H Blood Pressure Mean 149 159 Blood Pressure Mean [Right Arm] 127 Blood Pressure Position Sitting Blood Pressure Position [Right Arm] Sitting Pulse Oximetry 99 97 Oxygen Delivery Method Room Air Room Air Sepsis Recent Fever Within 48 Hours No Sepsis New/Unexplained Change in Mental Status No Sepsis Action Taken by Nursing No Action Required 07/14/22 23:05 07/14/22 23:11 07/14/22 23:15 Temperature Temperature Source Pulse Rate 74 75 73 Pulse Rate [Apical] Pulse Rhythm [Apical] Pulse Strength [Apical] Respiratory Rate 20 19 17 Respiratory Effort / Characteristics Respiratory Depth Respiratory Pattern Blood Pressure 220/124 H 220/111 H 215/101 H Blood Pressure [Right Arm] Blood Pressure Mean 156 147 139 Blood Pressure Mean [Right Arm] Blood Pressure Position Blood Pressure Position [Right Arm] Pulse Oximetry Oxygen Delivery Method Sepsis Recent Fever Within 48 Hours Sepsis New/Unexplained Change in Mental Status Sepsis Action Taken by Nursing 07/14/22 23:25 07/14/22 23:30 07/14/22 23:55 Temperature Temperature Source Pulse Rate 71 76 74 Pulse Rate [Apical] Pulse Rhythm [Apical] Pulse Strength [Apical] Respiratory Rate 22 13 15 Respiratory Effort / Characteristics Respiratory Depth Respiratory Pattern Blood Pressure 171/90 H 202/90 H 187/120 H Blood Pressure [Right Arm] Blood Pressure Mean 117 127 142 Blood Pressure Mean [Right Arm] Blood Pressure Position Blood Pressure Position [Right Arm] Pulse Oximetry Oxygen Delivery Method Sepsis Recent Fever Within 48 Hours Sepsis New/Unexplained Change in Mental Status Sepsis Action Taken by Nursing 07/15/22 00:00 07/15/22 00:15 07/15/22 00:30 Temperature Temperature Source Pulse Rate 65 66 66 Pulse Rate [Apical] Pulse Rhythm [Apical] Pulse Strength [Apical] Respiratory Rate 26 H 15 27 H Respiratory Effort / Characteristics Respiratory Depth Respiratory Pattern Blood Pressure 178/75 H 162/77 H 174/79 H Blood Pressure [Right Arm] Blood Pressure Mean 109 105 110 Blood Pressure Mean [Right Arm] Blood Pressure Position Blood Pressure Position [Right Arm] Pulse Oximetry Oxygen Delivery Method Sepsis Recent Fever Within 48 Hours Sepsis New/Unexplained Change in Mental Status Sepsis Action Taken by Nursing 07/15/22 00:45 07/15/22 01:00 Temperature Temperature Source Pulse Rate 69 Pulse Rate [Apical] Pulse Rhythm [Apical] Pulse Strength [Apical] Respiratory Rate 28 H Respiratory Effort / Characteristics Respiratory Depth Respiratory Pattern Blood Pressure 176/80 H 177/73 H Blood Pressure [Right Arm] Blood Pressure Mean 112 107 Blood Pressure Mean [Right Arm] Blood Pressure Position Blood Pressure Position [Right Arm] Pulse Oximetry Oxygen Delivery Method Sepsis Recent Fever Within 48 Hours Sepsis New/Unexplained Change in Mental Status Sepsis Action Taken by Nursing Laboratory Data Result diagrams: 07/14/22 19:50 07/14/22 19:50 Lab Results 07/14/22 07/14/22 07/14/22 Range/Units 19:50 19:50 19:50 WBC 8.42 (4.8-10.8) K/ul RBC 4.37 L (4.63-6.08) M/uL Hgb 14.0 (14.0-18.0) g/dl Hct 41.9 (40.1-51.0) % MCV 95.9 (80.0-100.0) fL MCH 32.0 (25.0-34.0) pg MCHC 33.4 (32.0-36.0) g/dL RDW Std Deviation 44.7 (36.4-46.3) fL RDW Coeff of Mame 12.6 (11.5-14.5) % Plt Count 265 (130-400) K/uL MPV 9.1 L (9.4-12.4) fL Immature Gran % (Auto) 0.2 % Neut % (Auto) 59.1 % Lymph % (Auto) 29.2 % [place] % (Auto) 8.0 % Eos % (Auto) 2.9 % Baso % (Auto) 0.6 % Neut # (Auto) 4.98 (1.4-6.5) K/uL Lymph # (Auto) 2.46 (1.2-3.4) K/uL [place] # (Auto) 0.67 (0.24-0.82) K/uL Eos # (Auto) 0.24 (0-0.50) K/uL Baso # (Auto) 0.05 (0-0.2) K/uL Immature Gran # (Auto) 0.02 (0.00-0.02) K/uL PT 11.5 (9.0-12.0) Seconds INR 1.1 (0.9-1.1) APTT 33.2 H (21.0-31.0) Seconds PTT Ratio 1.2 Sodium 140 (136-145) mmol/L Potassium 4.6 (3.5-5.1) mmol/L Chloride 105 (98-107) mmol/L Carbon Dioxide 30 (21-32) mmol/L Anion Gap 5 (3-11) BUN 25 H (6-23) mg/dl Creatinine 1.45 H (0.6-1.4) mg/dl Est Cr Clr Drug Dosing 35.7 ml/min Est GFR ( Amer) 49.1 ml/min Est GFR (Non-Af Amer) 42.4 ml/min BUN/Creatinine Ratio 17.2 (10-20) Glucose 99 (70-99(Fasting)) mg/dl Calcium 10.1 (8.5-10.1) mg/dl Total Bilirubin 0.4 (0.2-1.0) mg/dl AST 31 (13-39) U/L ALT 31 (7-52) U/L Alkaline Phosphatase 86 (34-104) U/L Troponin I High Sens (0-20) pg/ml Total Protein 7.7 (6.0-8.3) gm/dl Albumin 4.2 (3.4-5.0) gm/dl Globulin 3.5 (2.5-4.0) gm/dl Albumin/Globulin Ratio 1.2 (0.9-2) Urine Color Urine Appearance (Clear) Urine pH (4.5-7.5) Ur Specific Jessie (1.000-1.030) Urine Protein (Negative) Urine Glucose (UA) (Negative) Urine Ketones (Negative) Urine Blood (Negative) Urine Nitrite (Negative) Urine Bilirubin (Negative) Urine Urobilinogen (Negative) Ur Leukocyte Esterase (Negative) SARS-CoV-2 (PCR) (Negative) Influenza Type A (PCR) (Neg) Influenza Type B (PCR) (Neg) RSV (RT-PCR) (Neg) 07/14/22 07/14/22 07/14/22 Range/Units 19:50 19:52 Unknown WBC (4.8-10.8) K/ul RBC (4.63-6.08) M/uL Hgb (14.0-18.0) g/dl Hct (40.1-51.0) % MCV (80.0-100.0) fL MCH (25.0-34.0) pg MCHC (32.0-36.0) g/dL RDW Std Deviation (36.4-46.3) fL RDW Coeff of Mame (11.5-14.5) % Plt Count (130-400) K/uL MPV (9.4-12.4) fL Immature Gran % (Auto) % Neut % (Auto) % Lymph % (Auto) % [place] % (Auto) % Eos % (Auto) % Baso % (Auto) % Neut # (Auto) (1.4-6.5) K/uL Lymph # (Auto) (1.2-3.4) K/uL [place] # (Auto) (0.24-0.82) K/uL Eos # (Auto) (0-0.50) K/uL Baso # (Auto) (0-0.2) K/uL Immature Gran # (Auto) (0.00-0.02) K/uL PT (9.0-12.0) Seconds INR (0.9-1.1) APTT (21.0-31.0) Seconds PTT Ratio Sodium (136-145) mmol/L Potassium (3.5-5.1) mmol/L Chloride (98-107) mmol/L Carbon Dioxide (21-32) mmol/L Anion Gap (3-11) BUN (6-23) mg/dl Creatinine (0.6-1.4) mg/dl Est Cr Clr Drug Dosing ml/min Est GFR ( Amer) ml/min Est GFR (Non-Af Amer) ml/min BUN/Creatinine Ratio (10-20) Glucose (70-99(Fasting)) mg/dl Calcium (8.5-10.1) mg/dl Total Bilirubin (0.2-1.0) mg/dl AST (13-39) U/L ALT (7-52) U/L Alkaline Phosphatase (34-104) U/L Troponin I High Sens 23.6 H (0-20) pg/ml Total Protein (6.0-8.3) gm/dl Albumin (3.4-5.0) gm/dl Globulin (2.5-4.0) gm/dl Albumin/Globulin Ratio (0.9-2) Urine Color Yellow Urine Appearance Clear (Clear) Urine pH 7.5 (4.5-7.5) Ur Specific Jessie 1.009 (1.000-1.030) Urine Protein Negative (Negative) Urine Glucose (UA) Negative (Negative) Urine Ketones Negative (Negative) Urine Blood Negative (Negative) Urine Nitrite Negative (Negative) Urine Bilirubin Negative (Negative) Urine Urobilinogen Negative (Negative) Ur Leukocyte Esterase Negative (Negative) SARS-CoV-2 (PCR) NEGATIVE (Negative) Influenza Type A (PCR) Negative (Neg) Influenza Type B (PCR) Negative (Neg) RSV (RT-PCR) Negative (Neg) Administered Medications Discontinued Medications Labetalol HCl (Labetalol Hcl Iv 5 Mg/Ml 20ml) 10 mg IV NOW STA Stop: 07/14/22 23:15 Last Admin: 07/14/22 23:20 Dose: 10 mg Documented By: JALEEL Co-signed By: EMANUEL Discharge Plan Visit Data Chief Complaint: Hypertension Stated Complaint: POTENTIAL STROKE CANDIDATE, HIGH BP ED Provider: Migue Rodriguez Discharge Problem: Hypertension, Headache Patient Disposition: Being Evaluated by Hospitalist Forms Stand Alone Forms: [facility] Prescriptions Prescriptions: No Action losartan 50 mg tablet 25 mg PO QAM Label Comments: Pt states he takes 12.5mg daily Eliquis 2.5 mg tablet 2.5 mg PO BID cholecalciferol (vitamin D3) PO DAILY PreserVision AREDS [id number] capsule 2 cap PO DAILY metoprolol tartrate 50 mg tablet 50 mg PO BID Qty: 180 3RF carboxymethylcellulose sodium 1 % dropperette,gel 1 drp ophthalmic (eye) DAILY PRN ascorbate calcium (vitamin C) 500 mg tablet 500 mg PO DAILY atorvastatin 80 mg tablet 40 mg PO QPM meclizine 12.5 mg tablet 12.5 mg PO Q8H PRN hydrochlorothiazide 12.5 mg tablet 12.5 mg PO DAILY PRN (Reason: Blood pressure ) Label Comments: Pt takes PRN multivitamin with iron-mineral Tablet 1 tab PO QAM fluocinonide 0.05 % cream 1 applic topical BID PRN (Reason: itching) Rx Instructions: topical APPLY TWICE DAILY DIRECTED PRN; Referrals Referrals: Riki Barajas MD [Primary Care Provider] - : Hypertension Qualifiers: Hypertension type: unspecified Qualified Code(s): I10 - Essential (primary) hypertension Headache Qualifiers: Headache type: unspecified
[2022-07-15 00:58] LABS: Influenza A virus by PCR Negative (Neg); Influenza B virus by PCR Negative (Neg); RSV by PCR Negative (Neg); SARS CoV2 RNA(COVID-19) Ceph NEGATIVE (Negative)
[2022-07-15] MEDS ORDERED: ACETAMINOPHEN 325 MG TAB PO PRN (01:44)
[2022-07-15] MEDS ORDERED: APIXABAN 5 MG TABLET PO ONE (01:49)
[2022-07-15] MEDS ORDERED: METOPROLOL TARTRATE 50 MG TAB PO STA (01:50)
[2022-07-15] MEDS ORDERED: ACETAMINOPHEN 500 MG TAB PO STA (01:57)
--- NOTE | 2022-07-15 01:57 | History & Physical Report ---
Date of Service July 15, 2022 Assessment & Plan (1) Hypertension: Plan: This is an 87-year-old male with a history of paroxysmal atrial fibrillation, carotid stenosis, essential hypertension, complete heart block status post pacemaker placement, venom induced anaphylaxis who presented to [facility] for evaluation of headache, subsequently found to have a blood pressure of 236/106. Hypertensive Urgency with Headache - On arrival, patient found to have BP 236/106 with a headache, but NO visual disturbances, FNDs, proteinuria. He did have a mildly bumped troponin and his Cr is elevated, though has h/o similar creatinines in the past - Suspect secondary to missed medications and likely contribution from the holiday / sodium intake - CT imaging of the brain did not show any acute insults - Received Labetalol 10mg IV in the ED - Goal - reduce to under 160/110 by 7AM, then back to a normal (<130-140/90-100) over the next 24 hours - Home hypertensives: -- continue metoprolol 50mg b.i.d. 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 (4) Pacemaker: Plan: 3* AVB s/p Pacemaker Placement - Had permanent pacemaker placement placed on 04/19 - Follows with Dr. Barajas (5) Dyslipidemia: Plan: HLD - Continue statin Plan Code: Full Diet: HH PPX: Continue Eliquis Dispo: PCU given inability to give IV BBs on MS/T at this time History of Present Illness Primary Care Provider: Riki Barajas MD This is an 87-year-old male with a history of paroxysmal atrial fibrillation, carotid stenosis, essential hypertension, complete heart block status post pacemaker placement, venom induced anaphylaxis who presented to [facility] for evaluation of right-sided headache; [facility]. Patient reports feeling fatigued of late. He denies visual changes, neurological deficits, chest pain cough or SOB. Patient does admit to missing several doses of his morning medications this week. He drinks 2 cups of caffeinated coffee daily. No other stimulants or recent cough medicine. On arrival, patient was found to have blood pressure 236/106 with otherwise normal vital signs. Labs demonstrated BUN 25/creatinine 1.45 (in 01/2021, his creatinine was at 1.41). No proteinuria appreciated on UA. CT stat rad demonstrated "no intracranial hemorrhage, mass-effect, or midline shift. No evidence of acute infarct. Mild ventricular white matter hypodensities are most consistent with chronic microangiopathy. ECG without acute ischemic changes compared to prior EKG. He was given 10 mg of IV labetalol with subsequent improvement of his blood pressure; at the time of admission, his blood pressure was 177/73 Allergies Allergy/AdvReac Type Severity Reaction Status Date / Time bee venom protein (honey bee) Allergy Unknown Unknown Verified 07/15/22 02:54 hornet venom Allergy Unknown Unknown Verified 07/15/22 02:54 Penicillins Allergy Unknown HIVES Verified 07/15/22 02:54 bee pollen Allergy Unknown Verified 07/15/22 02:54 codeine Allergy Unknown Verified 07/15/22 02:54 oxycodone AdvReac Unknown N&V Verified 07/15/22 02:54 diltiazem AdvReac edema Verified 07/15/22 02:54 Home Medications Medication Instructions Recorded Confirmed Type fluocinonide 0.05 % topical cream 1 applic topical BID PRN itching 02/03/20 07/15/22 History multivitamin with iron-mineral 1 tab PO QAM 02/03/20 07/15/22 History metoprolol tartrate 50 mg tablet 50 mg PO BID #180 tabs 08/30/20 07/15/22 Rx ascorbate calcium (vitamin C) 500 500 mg PO QAM 06/09/21 07/15/22 History mg tablet atorvastatin 80 mg tablet 40 mg PO QPM 06/09/21 07/15/22 History carboxymethylcellulose sodium 1 % 1 drp OPB QID 06/09/21 07/15/22 History eye gel in a dropperette meclizine 12.5 mg tablet 12.5 mg PO Q8H PRN Vertigo 06/09/21 07/15/22 History hydrochlorothiazide 12.5 mg tablet 12.5 mg PO DAILY PRN Blood pressure 02/02/22 07/15/22 History losartan 50 mg tablet 50 mg PO QAM 06/11/22 07/15/22 History apixaban 5 mg tablet 5 mg PO BID 07/15/22 07/15/22 History cholecalciferol (vitamin D3) 25 25 mcg PO QAM 07/15/22 07/15/22 History mcg (1,000 unit) tablet (Vitamin D3) epinephrine 0.3 mg/0.3 mL 0.3 mg IM UD PRN Allergic Reaction 07/15/22 07/15/22 History injection, auto-injector (EpiPen) magnesium 250 mg tablet 250 mg PO DAILY PRN leg cramps 07/15/22 07/15/22 History vit C 250 mg-vit E 90 mg-zinc 40 1 tab PO BID 07/15/22 07/15/22 History mg-copper 1 [id number] capsule (PreserVision AREDS-2) Past Med/Surg History Medical History Dyslipidemia Gout Helicobacter positive gastritis Herpes zoster Peptic ulcer Respiratory failure with hypoxia Surgical History H/O hernia repair S/P appendectomy S/P T&A (status post tonsillectomy and adenoidectomy) Total knee replacement status Family History Other Coronary heart disease Social History Smoking Status: Former smoker Hx Alcohol Use: No Hx Substance Use: No Preferred Language: Sammarinese Communication Ability: Effective marital status: Current Living Situation: Spouse current occupational status: retired Feels Safe at Home: Yes Assistive Devices: Hearing Aid - Bilateral Review of Systems Review of Systems: All systems reviewed & are unremarkable except as noted in HPI & below + chills today Physical Exam Physical Exam: General: patient resting comfortably, NAD, non-toxic in appearance, AA&O x 4 Skin: warm, dry, intact, no rashes or lesions HEENT: NC/AT, PERRL, EOMI, anicteric sclera, conjunctiva without injection, external ear normal to inspection and nontender, nares patent, moist mucus membranes, dentition intact, no oropharyngeal lesions, neck supple, trachea midline, no LAD, no thyromegaly, no JVD Heart: +S1/S2, regular, no m/r/g Lungs: equal air entry bilaterally, no rales/rhonchi/wheezes Abd: +BS, soft, NT/ND, no masses/organomegaly/ascites Ext: warm, 2+ pulses in UE/LE bilaterally, no clubbing/cyanosis or edema Neuro: nonfocal, patient AA&O x 4, speech intact, no facial droop, moving all extremities on command with equal strength 5/5 Results & Data Results & Data ([facility] [place]) Vital Signs (Past 12 Hours) Vital Signs Temp Pulse Pulse Resp BP BP Pulse Ox 07/15/22 01:00 177/73 H 07/15/22 00:45 69 28 H 176/80 H 07/15/22 00:30 66 27 H 174/79 H 07/15/22 00:15 66 15 162/77 H 07/15/22 00:00 65 26 H 178/75 H 07/14/22 23:55 74 15 187/120 H 07/14/22 23:30 76 13 202/90 H 07/14/22 23:25 71 22 171/90 H 07/14/22 23:15 73 17 215/101 H 07/14/22 23:11 75 19 220/111 H 07/14/22 23:05 74 20 220/124 H 07/14/22 23:04 74 22 205/137 H 07/14/22 23:35 68 16 202/90 H 97 07/14/22 19:42 36.6 C 88 18 236/106 H 99 O2 Del Method 07/15/22 01:00 07/15/22 00:45 07/15/22 00:30 07/15/22 00:15 07/15/22 00:00 07/14/22 23:55 07/14/22 23:30 07/14/22 23:25 07/14/22 23:15 07/14/22 23:11 07/14/22 23:05 07/14/22 23:04 07/14/22 23:35 Room Air 07/14/22 19:42 Room Air Laboratory Results Laboratory Results WBC 8.42 K/ul (4.8-10.8) 07/14/22 19:50 RBC 4.37 M/uL (4.63-6.08) L 07/14/22 19:50 Hgb 14.0 g/dl (14.0-18.0) 07/14/22 19:50 Hct 41.9 % (40.1-51.0) 07/14/22 19:50 MCV 95.9 fL (80.0-100.0) 07/14/22 19:50 MCH 32.0 pg (25.0-34.0) 07/14/22 19:50 MCHC 33.4 g/dL (32.0-36.0) 07/14/22 19:50 RDW Std Deviation 44.7 fL (36.4-46.3) 07/14/22 19:50 RDW Coeff of Mame 12.6 % (11.5-14.5) 07/14/22 19:50 Plt Count 265 K/uL (130-400) 07/14/22 19:50 MPV 9.1 fL (9.4-12.4) L 07/14/22 19:50 Immature Gran % (Auto) 0.2 % 07/14/22 19:50 Neut % (Auto) 59.1 % 07/14/22 19:50 Lymph % (Auto) 29.2 % 07/14/22 19:50 Benson % (Auto) 8.0 % 07/14/22 19:50 Eos % (Auto) 2.9 % 07/14/22 19:50 Baso % (Auto) 0.6 % 07/14/22 19:50 Neut # (Auto) 4.98 K/uL (1.4-6.5) 07/14/22 19:50 Lymph # (Auto) 2.46 K/uL (1.2-3.4) 07/14/22 19:50 Benson # (Auto) 0.67 K/uL (0.24-0.82) 07/14/22 19:50 Eos # (Auto) 0.24 K/uL (0-0.50) 07/14/22 19:50 Baso # (Auto) 0.05 K/uL (0-0.2) 07/14/22 19:50 Immature Gran # (Auto) 0.02 K/uL (0.00-0.02) 07/14/22 19:50 PT 11.5 Seconds (9.0-12.0) 07/14/22 19:50 INR 1.1 (0.9-1.1) 07/14/22 19:50 APTT 33.2 Seconds (21.0-31.0) H 07/14/22 19:50 PTT Ratio 1.2 07/14/22 19:50 Sodium 140 mmol/L (136-145) 07/14/22 19:50 Potassium 4.6 mmol/L (3.5-5.1) 07/14/22 19:50 Chloride 105 mmol/L (98-107) 07/14/22 19:50 Carbon Dioxide 30 mmol/L (21-32) 07/14/22 19:50 Anion Gap 5 (3-11) 07/14/22 19:50 BUN 25 mg/dl (6-23) H 07/14/22 19:50 Creatinine 1.45 mg/dl (0.6-1.4) H 07/14/22 19:50 Est Cr Clr Drug Dosing 35.7 ml/min 07/14/22 19:50 Est GFR ( Amer) 49.1 ml/min 07/14/22 19:50 Est GFR (Non-Af Amer) 42.4 ml/min 07/14/22 19:50 BUN/Creatinine Ratio 17.2 (10-20) 07/14/22 19:50 Glucose 99 mg/dl (70-99(Fasting)) 07/14/22 19:50 Calcium 10.1 mg/dl (8.5-10.1) 07/14/22 19:50 Total Bilirubin 0.4 mg/dl (0.2-1.0) 07/14/22 19:50 AST 31 U/L (13-39) 07/14/22 19:50 ALT 31 U/L (7-52) 07/14/22 19:50 Alkaline Phosphatase 86 U/L (34-104) 07/14/22 19:50 Troponin I High Sens 23.6 pg/ml (0-20) H 07/14/22 19:50 Total Protein 7.7 gm/dl (6.0-8.3) 07/14/22 19:50 Albumin 4.2 gm/dl (3.4-5.0) 07/14/22 19:50 Globulin 3.5 gm/dl (2.5-4.0) 07/14/22 19:50 Albumin/Globulin Ratio 1.2 (0.9-2) 07/14/22 19:50 Urine Color Yellow 07/14/22 19:52 Urine Appearance Clear (Clear) 07/14/22 19:52 Urine pH 7.5 (4.5-7.5) 07/14/22 19:52 Ur Specific [place] 1.009 (1.000-1.030) 07/14/22 19:52 Urine Protein Negative (Negative) 07/14/22 19:52 Urine Glucose (UA) Negative (Negative) 07/14/22 19:52 Urine Ketones Negative (Negative) 07/14/22 19:52 Urine Blood Negative (Negative) 07/14/22 19:52 Urine Nitrite Negative (Negative) 07/14/22 19:52 Urine Bilirubin Negative (Negative) 07/14/22 19:52 Urine Urobilinogen Negative (Negative) 07/14/22 19:52 Ur Leukocyte Esterase Negative (Negative) 07/14/22 19:52 SARS-CoV-2 (PCR) NEGATIVE (Negative) 07/14/22 Unknown Influenza Type A (PCR) Negative (Neg) 07/14/22 Unknown Influenza Type B (PCR) Negative (Neg) 07/14/22 Unknown RSV (RT-PCR) Negative (Neg) 07/14/22 Unknown Code Status & VTE Plan VTE Prophylaxis Plan VTE Prophylaxis will be ordered: Yes Supervising Physician Co-Signing Physician Notes Patient seen and examined, chart reviewed. Patient is an 87yo male presenting with hypertensive urgency. Mildly increased Cr and troponin Exam is unremarkable. OW=628/73 +S1/S2, regular, no m/r/g Lungs CTA Abd soft, NT/ND Ext warm, well perfused, no clubbing/cyanosis. Trace pitting edema of bilateral LE Neurologically intact, no deficits Labs and images reviewed Assessment/plan -Gradual lowering of BP. -Resume home medications. Encourage compliance -Trend troponin -Trend Cr -Remainder as above (1) Headache Headache type: unspecified (2) Hypertension Hypertension type: unspecified Qualified Code(s): I10 - Essential (primary) hypertension
--- NOTE | 2022-07-15 03:35 | Billing Data ---
Date of Service July 15, 2022 Coding Level of Care Code 97575 Initial Inpt Care Lvl 3
--- NOTE | 2022-07-15 03:36 | Billing Data ---
Date of Service July 15, 2022 Coding Level of Care Code 31463 Initial Inpt Care Lvl 3
[2022-07-15] MEDS ORDERED: hydroCHLOROthiazide 25 MG TAB PO PRN (04:06)
[2022-07-15] MEDS ORDERED: LABETALOL HCL IV 5 MG/ML 20ML IV PRN (04:22)
[2022-07-15 04:44] LABS: Basophils # (auto) 0.05 K/uL (0-0.2); Basophils % (auto) 0.6 %; Eosinophils # (auto) 0.28 K/uL (0-0.50); Eosinophils % (auto) 3.3 %; Hematocrit (blood only) 36.3 % (40.1-51.0); Hemoglobin 12.3 g/dl (14.0-18.0); Immature Granulocytes # (auto) 0.03 K/uL (0.00-0.02); Immature Granulocytes % (auto) 0.4 %; Lymphocytes # (auto) 2.12 K/uL (1.2-3.4); Lymphocytes % (auto) 25.3 %; Mean Corpuscular Hemoglobin 32.1 pg (25.0-34.0); Mean Corpuscular Hgb Conc 33.9 g/dL (32.0-36.0); Mean Corpuscular Volume 94.8 fL (80.0-100.0); Mean Platelet Volume 9.9 fL (9.4-12.4); Monocytes # (auto) 0.63 K/uL (0.24-0.82); Monocytes % (auto) 7.5 %; Neutrophils # (auto) 5.26 K/uL (1.4-6.5); Neutrophils % (auto) 62.9 %; Platelet Count 197 K/uL (130-400); RDW Coefficient of Variation 12.6 % (11.5-14.5); RDW Standard Deviation 43.8 fL (36.4-46.3); Red Blood Count 3.83 M/uL (4.63-6.08); White Blood Count 8.37 K/ul (4.8-10.8)
[2022-07-15 05:18] LABS: BUN Creatinine Ratio 19.8 (10-20); Calcium 9.3 mg/dl (8.5-10.1); Est GFR (African American) 58.2 ml/min; Est GFR (Non-African American) 50.2 ml/min; Potassium 4.2 mmol/L (3.5-5.1)
--- NOTE | 2022-07-15 06:46 | Hospitalist Progress Note ---
Date of Service July 15, 2022 Assessment & Plan (1) Hypertension: Plan: This is an 87-year-old male with a history of paroxysmal atrial fibrillation, carotid stenosis, essential hypertension, complete heart block status post pacemaker placement, venom induced anaphylaxis who presented to [facility] for evaluation of headache, subsequently found to have a blood pressure of 236/106. Hypertensive Urgency with Headache - On arrival, patient found to have BP 236/106 with a headache, but NO visual disturbances, FNDs, proteinuria. He did have a mildly bumped troponin and his Cr is elevated, though has h/o similar creatinines in the past - Suspect secondary to missed medications and likely contribution from the holiday / sodium intake - CT imaging of the brain did not show any acute insults - Received Labetalol 10mg IV in the ED - Goal - reduce to under 160/110 by 7AM, then back to a normal (<130-140/90-100) over the next 24 hours - Home hypertensives: -- continue metoprolol 50mg b.i.d. 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 (4) Pacemaker: Plan: 3* AVB s/p Pacemaker Placement - Had permanent pacemaker placement placed on 04/19 - Follows with Dr. Barajas (5) Dyslipidemia: Plan: HLD - Continue statin Plan Code: Full Diet: HH PPX: Continue Eliquis Dispo: PCU given inability to give IV BBs on MS/T at this time Admission and Anticipated Discharge Date Admission Date: July 15, 2022 Subjective 87 year old male with a past medical history of paroxysmal atrial fibrillation, carotid stenosis, essential hypertension, complete heart block status post pacemaker placement, venom induced anaphylaxis. Presented with HTN urgency. Missed a few doses of medications this week, right sided headache and noted to have BP of 236/106 on admission. ED workup significant for creatine at baseline, no proteinuria, head CT without any acute findings, ECG without ischemic changes. Given 10mg labetalol in ED with improvement of BP. Review of Systems Review of Systems: As per HPI Physical Exam Physical Exam: Constitutional: well-appearing, no acute distress HEENT: NCAT, no conjunctival injection CV: regular rhythm, no murmur appreciated, extremities well-perfused, no LE edema Resp: CTABL, no wheezes/rales/rhonchi appreciated, no increased work of breat francesca GI: soft, nondistended, nontender, BS normoactive MSK: no gross deformities appreciated Skin: warm, dry, no rash appreciated Neuro: alert, oriented, no focal neurologic deficit appreciated Results & Data Results & Data ([facility]) Vital Signs (Past 12 Hours) Vital Signs Temp Pulse Pulse Resp BP BP Pulse Ox 07/15/22 05:25 36.9 C 62 14 155/73 H 95 07/15/22 05:00 60 22 145/69 H 07/15/22 04:45 91 H 14 180/85 H 07/15/22 04:30 64 22 159/74 H 07/15/22 04:15 65 24 147/70 H 07/15/22 04:00 61 21 151/68 H 07/15/22 03:45 64 21 151/66 H 07/15/22 03:30 67 15 147/73 H 07/15/22 03:15 69 18 136/65 07/15/22 03:00 67 21 152/66 H 07/15/22 02:45 71 22 166/74 H 07/15/22 02:30 68 34 H 176/89 H 07/15/22 02:15 74 21 218/98 H 07/15/22 01:45 70 28 H 177/89 H 07/15/22 01:35 71 18 175/91 H 07/15/22 01:30 72 38 H 177/83 H 07/15/22 01:15 72 23 187/92 H 07/15/22 01:00 177/73 H 07/15/22 00:45 69 28 H 176/80 H 07/15/22 00:30 66 27 H 174/79 H 07/15/22 00:15 66 15 162/77 H 07/15/22 00:00 65 26 H 178/75 H 07/14/22 23:55 74 15 187/120 H 07/14/22 23:30 76 13 202/90 H 07/14/22 23:25 71 22 171/90 H 07/14/22 23:15 73 17 215/101 H 07/14/22 23:11 75 19 220/111 H 07/14/22 23:05 74 20 220/124 H 07/14/22 23:04 74 22 205/137 H 07/14/22 23:35 68 16 202/90 H 97 07/14/22 19:42 36.6 C 88 18 236/106 H 99 O2 Del Method 07/15/22 05:25 Room Air 07/15/22 05:00 07/15/22 04:45 07/15/22 04:30 07/15/22 04:15 07/15/22 04:00 07/15/22 03:45 07/15/22 03:30 07/15/22 03:15 07/15/22 03:00 07/15/22 02:45 07/15/22 02:30 07/15/22 02:15 07/15/22 01:45 07/15/22 01:35 07/15/22 01:30 07/15/22 01:15 07/15/22 01:00 07/15/22 00:45 07/15/22 00:30 07/15/22 00:15 07/15/22 00:00 07/14/22 23:55 07/14/22 23:30 07/14/22 23:25 07/14/22 23:15 07/14/22 23:11 07/14/22 23:05 07/14/22 23:04 07/14/22 23:35 Room Air 07/14/22 19:42 Room Air (1) Headache Headache type: unspecified (2) Hypertension Hypertension type: unspecified Qualified Code(s): I10 - Essential (primary) hypertension
--- NOTE | 2022-07-15 07:15 | CT Scan Report ---
HEAD CT NONCONTRAST CT DOSE: 614.27 mGy.cm HISTORY: Hypertension. Headache. TECHNIQUE: Multiaxial CT images of the head were performed without the use of intravenous contrast. A utomated exposure control was utilized for this study. A dose lowering technique was utilized adheri ng to the principles of ALARA. Comparison: None. Findings: The paranasal sinuses and mastoid air cells are clear. The calvarium and skull base are int act. There is no mass, hematoma, midline shift, acute infarct. White matter hypodensity is nonspecifi c but suggestive of microvascular ischemic change. The ventricles and sulci demonstrate mild age-rela fariha involutional changes. 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 Impression: No acute intracranial abnormality. ACT 112: Negative or not required by law. Electronically signed by: Manolo Adamson M.D. 07/15/2022 7:14 AM
[2022-07-15] MEDS ORDERED: APIXABAN 2.5 MG TAB PO SCH (09:00)
[2022-07-15] MEDS ORDERED: LOSARTAN POTASSIUM 25 MG TAB PO SCH (09:00)
[2022-07-15] MEDS ORDERED: METOPROLOL TARTRATE 50 MG TAB PO SCH (09:00)
--- NOTE | 2022-07-15 13:03 | Electrocardiogram Report ---
Test Reason : Blood Pressure : / mmHG Vent. Rate : 079 BPM Atrial Rate : 079 BPM P-R Int : 192 ms QRS Dur : 122 ms QT Int : 418 ms P-R-T Axes : 050 -20 191 degrees QTc Int : 479 ms Normal sinus rhythm Right bundle branch block Left ventricular hypertrophy with QRS widening and repolarization abnormality vs ischemia Abnormal ECG When compared with ECG of 19-APR-2020 07:12, Premature atrial complexes are no longer Present ST no longer depressed in Anterior leads T wave inversion less evident in Anterior leads Confirmed by Miguel Angel Smith ([id number] on 07/15/2022 1:02:35 PM Referred By: REFERRED SELF Confirmed By:Navid Smith
--- NOTE | 2022-07-15 17:10 | Discharge Summary ---
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 Patient reports feeling fatigued of late. He denies visual changes, neurological deficits, chest pain cough or SOB. Patient does admit to missing several doses of his morning medications this week. He drinks 2 cups of caffeinated coffee daily. No other stimulants or recent cough medicine. On arrival, patient was found to have blood pressure 236/106 with otherwise normal vital signs. Labs demonstrated BUN 25/creatinine 1.45 (in 01/2021, his creatinine was at 1.41). No proteinuria appreciated on UA. CT stat rad demonstrated "no intracranial hemorrhage, mass-effect, or midline shift. No evidence of acute infarct. Mild ventricular white matter hypodensities are most consistent with chronic microangiopathy. ECG without acute ischemic changes compared to prior EKG. He was given 10 mg of IV labetalol with subsequent improvement of his blood pressure; at the time of admission, his blood pressure was 177/73 Principal Diagnosis HTN Emergency Discharge Exam Constitutional: well-appearing, no acute distress HEENT: NCAT, no conjunctival injection CV: regular rhythm, no murmur appreciated, extremities well-perfused, no LE edema Resp: CTABL, no wheezes/rales/rhonchi appreciated, no increased work of breathing GI: soft, nondistended, nontender, BS normoactive MSK: no gross deformities appreciated Skin: warm, dry, no rash appreciated Neuro: alert, oriented, no focal neurologic deficit appreciated Discharge Data Allergies Allergy/AdvReac Type Severity Reaction Status Date / Time bee venom protein (honey bee) Allergy Unknown Unknown Verified 07/15/22 02:54 hornet venom Allergy Unknown Unknown Verified 07/15/22 02:54 Penicillins Allergy Unknown HIVES Verified 07/15/22 02:54 bee pollen Allergy Unknown Verified 07/15/22 02:54 codeine Allergy Unknown Verified 07/15/22 02:54 oxycodone AdvReac Unknown N&V Verified 07/15/22 02:54 diltiazem AdvReac edema Verified 07/15/22 02:54 Consultations 07/15/22 01:49 ED Decision to Admit Stat Ordered Studies 07/14/22 23:14 CT head/brain wo con Stat Laboratory Results WBC 8.37 K/ul (4.8-10.8) 07/15/22 03:31 RBC 3.83 M/uL (4.63-6.08) L 07/15/22 03:31 Hgb 12.3 g/dl (14.0-18.0) L 07/15/22 03:31 Hct 36.3 % (40.1-51.0) L 07/15/22 03:31 MCV 94.8 fL (80.0-100.0) 07/15/22 03:31 MCH 32.1 pg (25.0-34.0) 07/15/22 03:31 MCHC 33.9 g/dL (32.0-36.0) 07/15/22 03:31 RDW Std Deviation 43.8 fL (36.4-46.3) 07/15/22 03:31 RDW Coeff of Mame 12.6 % (11.5-14.5) 07/15/22 03:31 Plt Count 197 K/uL (130-400) 07/15/22 03:31 MPV 9.9 fL (9.4-12.4) 07/15/22 03:31 Immature Gran % (Auto) 0.4 % 07/15/22 03:31 Neut % (Auto) 62.9 % 07/15/22 03:31 Lymph % (Auto) 25.3 % 07/15/22 03:31 [place] % (Auto) 7.5 % 07/15/22 03:31 Eos % (Auto) 3.3 % 07/15/22 03:31 Baso % (Auto) 0.6 % 07/15/22 03:31 Neut # (Auto) 5.26 K/uL (1.4-6.5) 07/15/22 03:31 Lymph # (Auto) 2.12 K/uL (1.2-3.4) 07/15/22 03:31 [place] # (Auto) 0.63 K/uL (0.24-0.82) 07/15/22 03:31 Eos # (Auto) 0.28 K/uL (0-0.50) 07/15/22 03:31 Baso # (Auto) 0.05 K/uL (0-0.2) 07/15/22 03:31 Immature Gran # (Auto) 0.03 K/uL (0.00-0.02) H 07/15/22 03:31 PT 11.5 Seconds (9.0-12.0) 07/14/22 19:50 INR 1.1 (0.9-1.1) 07/14/22 19:50 APTT 33.2 Seconds (21.0-31.0) H 07/14/22 19:50 PTT Ratio 1.2 07/14/22 19:50 Sodium 138 mmol/L (136-145) 07/15/22 03:31 Potassium 4.2 mmol/L (3.5-5.1) 07/15/22 03:31 Chloride 106 mmol/L (98-107) 07/15/22 03:31 Carbon Dioxide 25 mmol/L (21-32) 07/15/22 03:31 Anion Gap 7 (3-11) 07/15/22 03:31 BUN 25 mg/dl (6-23) H 07/15/22 03:31 Creatinine 1.26 mg/dl (0.6-1.4) 07/15/22 03:31 Est Cr Clr Drug Dosing 41.0 ml/min 07/15/22 03:31 Est GFR ( Amer) 58.2 ml/min 07/15/22 03:31 Est GFR (Non-Af Amer) 50.2 ml/min 07/15/22 03:31 BUN/Creatinine Ratio 19.8 (10-20) 07/15/22 03:31 Glucose 98 mg/dl (70-99(Fasting)) 07/15/22 03:31 Calcium 9.3 mg/dl (8.5-10.1) 07/15/22 03:31 Total Bilirubin 0.4 mg/dl (0.2-1.0) 07/14/22 19:50 AST 31 U/L (13-39) 07/14/22 19:50 ALT 31 U/L (7-52) 07/14/22 19:50 Alkaline Phosphatase 86 U/L (34-104) 07/14/22 19:50 Troponin I High Sens 20.5 pg/ml (0-20) H 07/15/22 10:29 Total Protein 7.7 gm/dl (6.0-8.3) 07/14/22 19:50 Albumin 4.2 gm/dl (3.4-5.0) 07/14/22 19:50 Globulin 3.5 gm/dl (2.5-4.0) 07/14/22 19:50 Albumin/Globulin Ratio 1.2 (0.9-2) 07/14/22 19:50 Urine Color Yellow 07/14/22 19:52 Urine Appearance Clear (Clear) 07/14/22 19:52 Urine pH 7.5 (4.5-7.5) 07/14/22 19:52 Ur Specific [place] 1.009 (1.000-1.030) 07/14/22 19:52 Urine Protein Negative (Negative) 07/14/22 19:52 Urine Glucose (UA) Negative (Negative) 07/14/22 19:52 Urine Ketones Negative (Negative) 07/14/22 19:52 Urine Blood Negative (Negative) 07/14/22 19:52 Urine Nitrite Negative (Negative) 07/14/22 19:52 Urine Bilirubin Negative (Negative) 07/14/22 19:52 Urine Urobilinogen Negative (Negative) 07/14/22 19:52 Ur Leukocyte Esterase Negative (Negative) 07/14/22 19:52 SARS-CoV-2 (PCR) NEGATIVE (Negative) 07/14/22 Unknown Influenza Type A (PCR) Negative (Neg) 07/14/22 Unknown Influenza Type B (PCR) Negative (Neg) 07/14/22 Unknown RSV (RT-PCR) Negative (Neg) 07/14/[address] 07/14/22 23:[address] DOSE: 614.27 mGy.cm HISTORY: Hypertension. Headache. TECHNIQUE: Multiaxial CT images of the head were performed without the use of intravenous contrast. Automated exposure control was utilized for this study. A dose lowering technique was utilized adhering to the principles of ALARA. Comparison: None. Findings: The paranasal sinuses and mastoid air cells are clear. The calvarium and skull base are intact. There is no mass, hematoma, midline shift, acute infarct. White matter hypodensity is nonspecific but suggestive of microvascular ischemic change. The ventricles and sulci demonstrate mild age-related involutional changes. 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 Impression: No acute intracranial abnormality. ACT 112: Negative or not required by law. Electronically signed by: Manolo Adamson M.D. 07/15/2022 7:14 AM Hospital Course (1) Hypertension: This is an 87-year-old male with a history of paroxysmal atrial fibrillation, carotid stenosis, essential hypertension, complete heart block status post pacemaker placement, venom induced anaphylaxis who presented to [facility] for evaluation of headache, subsequently found to have a blood pressure of 236/106. Hypertensive Urgency with Headache - On arrival, patient found to have BP 236/106 with a headache, but NO visual disturbances, FNDs, proteinuria. He did have a mildly bumped troponin and his Cr is elevated, though has h/o similar creatinines in the past - Suspect secondary to missed medications and likely contribution from the holiday / sodium intake - CT imaging of the brain did not show any acute insults - Received Labetalol 10mg IV in the ED - Blood pressure came back down, and well controlled on home medications - Troponin mildly elevated, peaked at 24, trending down. No chest pain. No ischemic changes on ECG. - Recommend continuing current home blood pressure medications. Could consider switch to Metoprol succinate to switch from BID to daily. Will keep BP log to bring to f/u with PCP. Recommend setting an alarm to ensure he remembers to take medications. MARTELL - Likely secondary to HTN - thankfully no evidence of PLEAT TAPER insult on exam or brain imaging - Treat BP as above - Resolved PAF - PAF diagnosed 08/2021 with additional history of 3* AVB requiring pacemaker placement - ECG demonstrating normal rhythm with adequate rate control - Continue Eliquis - Continue metoprolol 50mg b.i.d. 3* AVB s/p Pacemaker Placement - Had permanent pacemaker placement placed on 04/19 - Follows with Dr. Karl MENDOZA - Continue statin (2) Headache: (3) Paroxysmal atrial flutter: (4) Pacemaker: (5) Dyslipidemia: Total Time Total Time Spent Total Time Spent (In Minutes): 30 Discharge Plan Discharge Items Patient Disposition: Home - Self-Care Reason For Visit: HTN URGENCY W/ HEADACHE Discharge Diagnosis: HTN Emergency Activity: Resume your previous activity Non-emergency contact: Primary Care Provider Call non-emergency contact if: you have any medication questions Follow-up/Referrals: Riki Barajas MD [Primary Care Provider] - Diet: Regular Addtl Attending Provider Instructions: You were admitted to the hospital for hypertensive emergency. You were treated with some medications to lower your blood pressure. Your blood pressure is now well controlled on your home medications. Please ensure you take these medications everyday at similar time. You could try setting an alarm on your phone/watch to help with this. Take your blood pressure a few times a week at home and keep a log. Bring these readings to your follow up visit with your PCP and cardiology so that they can adjust the dose of your blood pressure medications as needed. A discharge summary will be sent to your primary care physician to ensure continuity of care. Please bring this discharge summary with you to your next office appointment so that your provider can review it at that time. Follow-up appointments: Make a follow-up appointment with your PCP within the next week. It is very important that you follow up with them shortly after discharge from the hospital. We have requested a follow-up appointment with your [employer] passenger car. Please call their office if you do not hear from them. CONTACT YOUR PRIMARY CARE PROVIDER if you experience any of the following: Lightheadedness/dizziness with a low blood pressure Elevated blood pressures above 150/90 Difficulty following your treatment plan, or difficulty taking medications CALL 911 OR GO TO THE EMERGENCY DEPARTMENT if you experience any of the following: High blood pressure (greater than 150/90) with headache, blurred vision, chest pain, shortness of breath Sudden, severe abdominal pain or nausea/vomiting Severe chest pain, or chest pain that radiates (moves) to your jaw or arm Sudden, severe shortness of breath or difficulty breathing Thank you for allowing us to participate in your care. Pending Studies at Discharge: No Stand-Alone Forms: My [employer], Smoking Cessation Medications and DC Order Prescriptions: Continued losartan 50 mg tablet 50 mg PO QAM Label Comments: Pt states he takes 12.5mg daily metoprolol tartrate 50 mg tablet 50 mg PO BID Qty: 180 3RF carboxymethylcellulose sodium 1 % dropperette,gel 1 drp OPB QID ascorbate calcium (vitamin C) 500 mg tablet 500 mg PO QAM atorvastatin 80 mg tablet 40 mg PO QPM meclizine 12.5 mg tablet 12.5 mg PO Q8H PRN (Reason: Vertigo) hydrochlorothiazide 12.5 mg tablet 12.5 mg PO DAILY PRN (Reason: Blood pressure ) Label Comments: Pt takes PRN multivitamin with iron-mineral Tablet 1 tab PO QAM fluocinonide 0.05 % cream 1 applic topical BID PRN (Reason: itching) Rx Instructions: topical APPLY TWICE DAILY DIRECTED PRN; apixaban 5 mg Tablet 5 mg PO BID PreserVision AREDS-2 250-90-40-1 mg Capsule 1 tab PO BID magnesium 250 mg Tablet 250 mg PO DAILY PRN (Reason: leg cramps) epinephrine [EpiPen] 0.3 mg/0.3 mL Auto-Injector 0.3 mg IM UD PRN (Reason: Allergic Reaction) cholecalciferol (vitamin D3) [Vitamin D3] 25 mcg (1,000 unit) Tablet 25 mcg PO QAM Discharge Orders: Discharge Order (Routine); Ordered 07/15/22 Ordered By: Alina Reinoso Admission Data Admit Date/Time: 07/15/22 01:45 Attending Provider: Vani Guillen Admit Provider: William Cool Primary Care Provider: Riki Barajas Other Providers: Vani Guillen Other Interventions: Discharge Summary Assessment (RN) Last Done: 07/15/22 13:36 Supervising Physician Co-Signing Physician Notes Attending attestation Pt seen and examined in concert with Dr. Reinoso. In agreement with the documented findings as noted in the resident documentation with any exceptions or additions as noted here. Resolution of presenting symptoms and feeling at baseline in exam room. VS, nursing notes, ED notes, labs reviewed. On examination, S1/S2 nl RRR no MCG. CTAB. Abd NT/ND BS+ve Hypertension - resume home medication regmien and follow up with cardiology. Extensive counseling re: adherence, lifestyle modification and precautions as well as supportive tools. Else see resident documentation as noted. Total attending physician time spent with this patient's care on the day of discharge: 35 minutes.
[2022-07-15] MEDS ORDERED: ATORVASTATIN 40 MG TAB PO SCH (21:00)
== END 2022-07-15 13:36 | disposition home or self-care (01) ==
LOC: ED 19:34 → EDINP 07-15 01:45 → SUATTDRO 07-15 01:45 → INTOOBSV 07-15 01:45 → EDINP 07-15 04:07